=== PATIENT | female | born 1990 | race Hispanic/Latino ===

== ENCOUNTER 2017-10-03 12:29 | Emergency (ER) | payer BC, SELFPAY ==
[2017-10-03] MEDS ORDERED: NA CHLORIDE 0.9% 1,000 ML ONE (13:30)
[2017-10-03] MEDS ORDERED: MORPHINE 4 MG/ML SYR ONE (13:30)
[2017-10-03] MEDS ORDERED: ONDANSETRON 4 MG/2 ML VIAL ONE (13:30)
[2017-10-03 13:43] LABS: Absolute Monocytes 0.9 K/uL (0.1-1.3); Absolute Neutrophil 6.4 K/uL (1.8-8.0); Basophils % 1.2 % (0-1.3); Eosinophils % 3.1 % (0-4.4); Hematocrit 42.4 % (36.0-45.0); Lymphocytes % 28.3 % (15.3-44.8); MPV 8.1 fL (7.6-11.3); Monocytes % 8.3 % (3.3-12.3); RBC Red Blood Cell Count 4.92 M/uL (3.86-4.86)
[2017-10-03 13:54] LABS: Urine Blood NEGATIVE (NEG); Urine Glucose NEGATIVE (NEG); Urine Protein NEGATIVE (NEG); Urine Specific Gravity 1.025 (1.005-1.030); Urine pH 6.5 (5.0-7.0)
[2017-10-03 13:57] LABS: Urine Bacteria <20 /HPF (<20); Urine RBC <5 /HPF (NONE SEEN)
[2017-10-03 13:58] LABS: Urine Specific Gravity 1.025 (1.005-1.030)
[2017-10-03 13:58] LABS: Urine Culture Reflex Order NOT NEEDED; Urine Mucus 1+ /HPF (NONE SEEN)
[2017-10-03 14:00] LABS: ALT/SGPT 34 U/L (12-78); AST/SGOT 10 U/L (15-37); Albumin 3.8 g/dL (3.4-5.0); Alkaline Phosphatase 182 U/L (45-117); BUN Blood Urea Nitrogen 10 mg/dL (7-18); Bicarbonate 28 mmol/L (21-32); Bilirubin Direct < 0.1 mg/dL (0-0.2); Bilirubin Total 0.2 mg/dL (0.2-1.0); Glucose Level 88 mg/dL (74-106); Lipase 161 U/L (73-393); Potassium 3.9 mmol/L (3.5-5.1); Protein, Total 8.1 g/dL (6.4-8.2); Sodium Level 141 mmol/L (136-145)
--- NOTE | 2017-10-03 15:04 | RAD REPORT ---
EXAM DESCRIPTION: CT - Abdomen Pelvis W Contrast - 10/03/2017 2:19 pm CLINICAL HISTORY: Abdominal pain/nausea for 2 days COMPARISON: none. TECHNIQUE: Computed axial tomography of the abdomen pelvis was obtained. 100 cc Isovue-300 was admin istered intravenously. Oral contrast was not requested which limits evaluation of bowel. All CT scans are performed using dose optimization technique as appropriate and may include automated exposure control or mA/KV adjustment according to patient size. FINDINGS: The liver has a diminished attenuation consistent with fatty infiltration Spleen, pancreas, adrenal and kidneys appear unremarkable. There is no evidence of diverticulitis. The appendix is normal. The gallbladder has been removed. A tiny umbilical hernia is seen. An adnexal mass is not displayed IMPRESSION: No acute abnormality is displayed.
--- NOTE | 2017-10-03 15:38 | ER ---
Nurse's Notes [facility] Name: Anisha Navarro Age: 27 yrs Sex: Female : 1990 Arrival Date: 10/03/2017 Time: 12:32 Bed 20 Private MD: Diagnosis: Unspecified abdominal pain;Vomiting Presentation: 10/03 12:48 Presenting complaint: Patient states: olivia been nauseous for past couple days, dizzy and hj i woke with body ache and vomiting this AM; reports abd pain intermittent; denies diarrhea;. Transition of care: patient was not received from another setting of care. Onset of symptoms was October 03, 2017. Risk Assessment: Do you want to hurt yourself or someone else? Patient reports no desire to harm self or others. Initial Sepsis Screen: Does the patient meet any 2 criteria? No. Patient's initial sepsis screen is negative. Does the patient have a suspected source of infection? No. Patient's initial sepsis screen is negative. Care prior to arrival: None. 12:48 Method Of Arrival: Ambulatory 12:48 Acuity: NIKKI 3 hj Triage Assessment: 12:50 General: Appears in no apparent distress. uncomfortable, Behavior is calm, cooperative, hj appropriate for age. Pain: Complains of pain in abdomen. GI: Reports upper abdominal pain, constipation, nausea, vomiting. 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 - Social history:: Smoking status: Patient/guardian denies using tobacco, Patient/guardian denies using alcohol. - Ebola Screening: : Patient negative for fever greater than or equal to 101.5 degrees Fahrenheit, and additional compatible Ebola Virus Disease symptoms Patient denies exposure to infectious person Patient denies travel to an Ebola-affected area in the 21 days before illness onset. Screenin:51 Abuse screen: Denies threats or abuse. Denies injuries from another. Nutritional hj screening: No deficits noted. Tuberculosis screening: No symptoms or risk factors identified. Fall Risk None identified. Assessment: 12:51 GI: Abdomen is non-distended. hj 13:42 General: Appears uncomfortable, ill, obese, Behavior is calm, cooperative, appropriate mb3 for age. Pain: Complains of pain in abdomen. Neuro: Level of Consciousness is awake, alert, obeys commands, Oriented to person, place, time, situation, Appropriate for age. Cardiovascular: No deficits noted. Respiratory: No deficits noted. Airway is patent Respiratory effort is even, unlabored, Respiratory pattern is regular, symmetrical, Breath sounds are clear bilaterally. GI: Bowel sounds present X 4 quads. Abd is soft Abdomen is tender to palpation in right upper quadrant and left upper quadrant Reports nausea, vomiting. : No signs and/or symptoms were reported regarding the genitourinary system. Urine is cloudy. EENT: No signs and/or symptoms were reported regarding the EENT system. Derm: No signs and/or symptoms reported regarding the dermatologic system. Vital Signs: 12:51 BP 122 / 87; Pulse 95; Resp 18; Temp 98.6(O); Pulse Ox 97% on R/A; Weight 99.79 kg; hj Height 5 ft. 2 in. (157.48 cm); Pain 10/10; 15:54 BP 146 / 100; Pulse 89; Resp 16; Pulse Ox 97% on R/A; mb3 12:51 Body Mass Index 40.24 (99.79 kg, 157.48 cm) ED Course: 12:32 Patient arrived in ED. rg4 12:50 Triage completed. hj 12:51 Arm band placed on right wrist. hj 12:52 Patient has correct armband on for positive identification. Placed in gown. Bed in low hj position. Call light in reach. Side rails up X 1. 13:02 Issa Escobar, PETAR is PHCP. pm1 13:02 Zaid Lee MD is Attending Physician. pm1 13:22 Radiology exam delayed due to lab results not completed at this time. (BUN/Creatinine) vr test not completed at this time. 13:23 Reinier Ferreira, RN is Primary Nurse. mb3 13:35 Warm blanket given. Pulse ox on. NIBP on. mh5 13:35 Initial lab(s) drawn, by me, sent to lab. Urine collected: clean catch specimen, mh5 cloudy. Inserted saline lock: 22 gauge in left antecubital area, using aseptic technique. Blood collected. 13:36 Creatinine for Radiology Sent. [facility] 13:36 Basic Metabolic Panel Sent. [facility] 13:36 CBC with Diff Sent. [facility] 13:36 Hepatic Function Sent. [facility] 13:36 Lipase Sent. [facility] 14:00 Radiology exam delayed due to lab results not completed at this time. test vr not completed at this time. 14:[address] via wheelchair. vr 14:19 CT Abd/Pelvis - W/Contrast: IV contrast only In Process Unspecified. EDMS 14:20 CT completed. Patient tolerated procedure well. Patient moved back from CT. 15:54 No provider procedures requiring assistance completed. IV discontinued, intact, mb3 bleeding controlled, No redness/swelling at site. Pressure dressing applied. Administered Medications: 13:30 Drug: NS 0.9% 1000 ml Route: IV; Rate: 1000 ml; Site: left antecubital; mb3 15:53 Follow up: Response: No adverse reaction; IV Status: Completed infusion; IV Intake: mb3 1000ml 13:30 Drug: Zofran 4 mg Route: IVP; Site: left antecubital; mb3 15:53 Follow up: Response: No adverse reaction mb3 13:30 Drug: morphine 4 mg Route: IVP; Site: left antecubital; mb3 15:53 Follow up: Response: No adverse reaction mb3 Intake: 15:53 IV: 1000ml; Total: 1000ml. mb3 Outcome: 15:38 Discharge ordered by MD. pm1 15:53 Discharged to home ambulatory. mb3 15:53 Condition: stable 15:53 Discharge instructions given to patient, Instructed on discharge instructions, follow up and referral plans. medication usage, Demonstrated understanding of instructions, follow-up care, medications, Prescriptions given X 1. 15:54 Patient left the ED. mb3 Signatures: Dispatcher [employer] EDKS Dalia Eugene Shannon Isra Peter, Issa Shahid RN, NP NP pm1 Evette Ricardo 4 Chelsea Martinez 5 Reinier Ferreira RN RN mb3 Corrections: (The following items were deleted from the chart) 12:53 12:51 Pulse 95bpm; Resp 18bpm; Pulse Ox 97% RA; Temp 98.6F Oral; 99.79 kg; Height 5 ft. hj 2 in.; BMI: 40.2; Pain 01/02; hj 13:50 13:49 Patient moved to [place] via stretcher. fabián lockwood
--- NOTE | 2017-10-03 15:38 | EDPHYS ---
Physician Documentation [facility] Name: Anisha Navarro Age: 27 yrs Sex: Female : 1990 Arrival Date: 10/03/2017 Time: 12:32 Bed 20 Private MD: ED Physician Zaid Lee HPI: 10/03 14:00 This 27 yrs old Female presents to ER via Ambulatory with complaints of pm1 Nausea/Vomiting, Dizziness, BODY ACHES. 14:00 The patient presents to the emergency department with nausea, vomiting, abdominal pain. pm1 Onset: The symptoms/episode began/occurred 2 day(s) ago. Possible causes: sick contacts, by family, father, had GI bug for 48 hours. Vomiting and diarrhea. The symptoms are aggravated by nothing. The symptoms are alleviated by nothing. Associated signs and symptoms: Pertinent positives: abdominal pain, Pertinent negatives: dysuria, fever. Severity of symptoms: in the emergency department the symptoms are unchanged. The patient has not experienced similar symptoms in the past. The patient has not recently seen a physician. 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 - Social history:: Smoking status: Patient/guardian denies using tobacco, Patient/guardian denies using alcohol. - Ebola Screening: : Patient negative for fever greater than or equal to 101.5 degrees Fahrenheit, and additional compatible Ebola Virus Disease symptoms Patient denies exposure to infectious person Patient denies travel to an Ebola-affected area in the 21 days before illness onset. ROS: 14:00 Constitutional: Negative for fever, chills, and weight loss, Eyes: Negative for injury, pm1 pain, redness, and discharge, ENT: Negative for injury, pain, and discharge, Neck: Negative for injury, pain, and swelling, Cardiovascular: Negative for chest pain, palpitations, and edema, Respiratory: Negative for shortness of breath, cough, wheezing, and pleuritic chest pain. 14:00 Back: Negative for injury and pain, : Negative for injury, bleeding, discharge, and swelling, MS/Extremity: Negative for injury and deformity, Skin: Negative for injury, rash, and discoloration, Neuro: Negative for headache, weakness, numbness, tingling, and seizure. 14:00 Abdomen/GI: Positive for abdominal pain, nausea and vomiting, Negative for diarrhea. Exam: 14:00 Constitutional: This is a well developed, well nourished patient who is awake, alert, pm1 and in no acute distress. Head/Face: Normocephalic, atraumatic. Eyes: Pupils equal round and reactive to light, extra-ocular motions intact. Lids and lashes normal. Conjunctiva and sclera are non-icteric and not injected. Cornea within normal limits. Periorbital areas with no swelling, redness, or edema. ENT: Nares patent. No nasal discharge, no septal abnormalities noted. Tympanic membranes are normal and external auditory canals are clear. Oropharynx with no redness, swelling, or masses, exudates, or evidence of obstruction, uvula midline. Mucous membranes moist. Neck: Trachea midline, no thyromegaly or masses palpated, and no cervical lymphadenopathy. Supple, full range of motion without nuchal rigidity, or vertebral point tenderness. No Meningismus. Chest/axilla: Normal chest wall appearance and motion. Nontender with no deformity. No lesions are appreciated. Cardiovascular: Regular rate and rhythm with a normal S1 and S2. No gallops, murmurs, or rubs. Normal PMI, no JVD. No pulse deficits. Respiratory: Lungs have equal breath sounds bilaterally, clear to auscultation and percussion. No rales, rhonchi or wheezes noted. No increased work of breathing, no retractions or nasal flaring. 14:00 Back: No spinal tenderness. No costovertebral tenderness. Full range of motion. Skin: Warm, dry with normal turgor. Normal color with no rashes, no lesions, and no evidence of cellulitis. MS/ Extremity: Pulses equal, no cyanosis. Neurovascular intact. Full, normal range of motion. 14:00 Abdomen/GI: Inspection: abdomen appears normal, obese Bowel sounds: normal, Palpation: soft, mild abdominal tenderness, in the right upper quadrant and left upper quadrant, mass, is not appreciated, rebound tenderness, is not appreciated. 14:00 Neuro: Orientation: is normal, Sensation: is normal. Vital Signs: 12:51 BP 122 / 87; Pulse 95; Resp 18; Temp 98.6(O); Pulse Ox 97% on R/A; Weight 99.79 kg; hj Height 5 ft. 2 in. (157.48 cm); Pain 10/10; 15:54 BP 146 / 100; Pulse 89; Resp 16; Pulse Ox 97% on R/A; mb3 12:51 Body Mass Index 40.24 (99.79 kg, 157.48 cm) hj MDM: 13:02 Patient medically screened. pm1 15:37 Data reviewed: vital signs. Data interpreted: Pulse oximetry: on room air is 97 %. pm1 Interpretation: normal. Counseling: I had a detailed discussion with the patient and/or guardian regarding: the historical points, exam findings, and any diagnostic results supporting the discharge/admit diagnosis, lab results, radiology results, the need for outpatient follow up, to return to the emergency department if symptoms worsen or persist or if there are any questions or concerns that arise at home. 10/03 13:16 Order name: Urine Microscopic Only; Complete Time: 14:00 pm10/03 13:16 Order name: Creatinine for Radiology; Complete Time: 14:00 pm10/03 13:16 Order name: Basic Metabolic Panel; Complete Time: 14:01 pm10/03 13:16 Order name: CBC with Diff; Complete Time: 14:00 pm10/03 13:16 Order name: Hepatic Function; Complete Time: 14:01 pm1 10/03 13:16 Order name: Lipase; Complete Time: 14:01 pm10/03 13:16 Order name: Urine Test (obtain specimen); Complete Time: 13:41 pm1 10/03 13:16 Order name: IV Saline Lock; Complete Time: 13:36 pm1 10/03 13:16 Order name: CT Abd/Pelvis - W/Contrast: IV contrast only; Complete Time: 15:14 pm1 10/03 13:50 Order name: Urine Dipstick--Ancillary (enter results); Complete Time: 14:00 ss 10/03 13:55 Order name: Urine --Ancillary (enter results); Complete Time: 14:00 ag 10/03 13:16 Order name: Labs collected and sent; Complete Time: 13:36 pm1 10/03 13:16 Order name: Urine Dipstick-Ancillary (obtain specimen); Complete Time: 13:42 pm1 Administered Medications: 13:30 Drug: NS 0.9% 1000 ml Route: IV; Rate: 1000 ml; Site: left antecubital; mb3 15:53 Follow up: Response: No adverse reaction; IV Status: Completed infusion; IV Intake: mb3 1000ml 13:30 Drug: Zofran 4 mg Route: IVP; Site: left antecubital; mb3 15:53 Follow up: Response: No adverse reaction mb3 13:30 Drug: morphine 4 mg Route: IVP; Site: left antecubital; mb3 15:53 Follow up: Response: No adverse reaction mb3 Disposition: 17:37 Co-signature as Attending Physician, Zaid Lee MD. rn Disposition: 10/03/17 15:38 Discharged to Home. Impression: Unspecified abdominal pain, Vomiting. - Condition is Stable. - Discharge Instructions: Abdominal Pain, Adult, Nausea and Vomiting. - Prescriptions for Zofran 4 mg Oral Tablet - take 1 tablet by ORAL route every 12 hours As needed; 20 tablet. - Work release form, Medication Reconciliation Form, Thank You Letter form. - Follow up: Emergency Department; When: As needed; Reason: Worsening of condition. Follow up: Private Physician; When: 2 - 3 days; Reason: Recheck today's complaints, Continuance of care, Re-evaluation by your physician. - Problem is new. - Symptoms have improved. Signatures: Dispatcher [employer] EDZaid Genao MD MD rn Joaquin, Henry, RN RN hj Marinas, Patrick, NP PHYSICAL THERAPIST CLINIC DIRECTOR pm1 Reinier Ferreira RN RN mb3 Corrections: (The following items were deleted from the chart) 15:54 15:38 10/03/2017 15:38 Discharged to Home. Impression: Unspecified abdominal pain; mb3 Vomiting. Condition is Stable. Forms are Medication Reconciliation Form, Thank You Letter, Antibiotic Education, Prescription Opioid Use. Follow up: Emergency Department; When: As needed; Reason: Worsening of condition. Follow up: Private Physician; When: 2 - 3 days; Reason: Recheck today's complaints, Continuance of care, Re-evaluation by your physician. Problem is new. Symptoms have improved. pm1
== END 2017-10-03 15:54 | disposition home or self-care (01) ==
LOC: ER 12:29
DX: R11.2 Nausea with vomiting, unspecified (principal)
CPT/HCPCS: 36415; 74177; 80048; 80076; 81003; 81015; 81025; 83690; 85025; 96361; 96374; 96375; 99284; J2405; J7030; Q9967

== ENCOUNTER 2017-12-01 22:11 | Emergency (ER) | payer SELFPAY ==
[2017-12-01] MEDS ORDERED: DICYCLOMINE HCL 10 MG CAP ONE (23:15)
[2017-12-01] MEDS ORDERED: ONDANSETRON 4 MG/2 ML VIAL ONE (23:15)
[2017-12-01] MEDS ORDERED: FAMOTIDINE 20 MG/2 ML VIAL IV ONE (23:16)
[2017-12-01] MEDS ORDERED: NA CHLORIDE 0.9% 1,000 ML ONE (23:16)
[2017-12-01 23:31] LABS: Urine Blood NEGATIVE (NEG); Urine Glucose TRACE (NEG); Urine Protein 1+ (NEG); Urine Specific Gravity >1.030 (1.005-1.030); Urine pH 5.5 (5.0-7.0)
[2017-12-01 23:36] LABS: Absolute Lymphocytes (CBC) 2.6 K/uL (0.7-4.9); Absolute Monocytes 0.5 K/uL (0.1-1.3); Basophils % 0.8 % (0-1.3); Eosinophils % 1.1 % (0-4.4); Hematocrit 39.8 % (36.0-45.0); Lymphocytes % 22.9 % (15.3-44.8); MCH 30.4 pg (27.0-35.0); MCV 87.1 fL (80-100); MPV 8.1 fL (7.6-11.3); Monocytes % 4.5 % (3.3-12.3); RBC Red Blood Cell Count 4.57 M/uL (3.86-4.86)
[2017-12-01 23:38] LABS: Urine Bacteria <20 /HPF (<20); Urine RBC NONE SEEN /HPF (NONE SEEN)
[2017-12-01 23:39] LABS: Urine Culture Reflex Order NOT NEEDED
[2017-12-01 23:51] LABS: ALT/SGPT 44 U/L (12-78); AST/SGOT 13 U/L (15-37); Albumin 3.7 g/dL (3.4-5.0); Alkaline Phosphatase 154 U/L (45-117); Amylase Level 56 U/L (25-115); BUN Blood Urea Nitrogen 11 mg/dL (7-18); Bicarbonate 25 mmol/L (21-32); Bilirubin Direct < 0.1 mg/dL (0-0.2); Bilirubin Total 0.2 mg/dL (0.2-1.0); Glucose Level 155 mg/dL (74-106); Lipase 161 U/L (73-393); Potassium 3.7 mmol/L (3.5-5.1); Protein, Total 7.9 g/dL (6.4-8.2); Sodium Level 139 mmol/L (136-145)
--- NOTE | 2017-12-02 02:27 | EDPHYS ---
Physician Documentation [facility] Name: Anisha Navarro Age: 27 yrs Sex: Female : 1990 Arrival Date: 12/01/2017 Time: 22:12 Bed 18 Private MD: ED Physician Wily Zhang HPI: 12/01 22:45 This 27 yrs old Female presents to ER via Ambulatory with complaints of cp Abdominal Pain, Vomiting. 22:45 The patient presents with abdominal pain in the periumbilical area. in the right upper cp quadrant, right lower quadrant. Onset: The symptoms/episode began/occurred 3 day(s) ago. Associated signs and symptoms: Pertinent positives: nausea and vomiting, diarrhea, Pertinent negatives: blood in stools, constipation, dysuria, vomiting blood. 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 - Social history:: Smoking status: Patient/guardian denies using tobacco, but has a distant history of tobacco abuse. - Ebola Screening: : Patient negative for fever greater than or equal to 101.5 degrees Fahrenheit, and additional compatible Ebola Virus Disease symptoms Patient denies exposure to infectious person Patient denies travel to an Ebola-affected area in the 21 days before illness onset. ROS: 22:50 Constitutional: Negative for body aches, chills, fever, poor PO intake. cp 22:50 Eyes: Negative for injury, pain, redness, and discharge. cp 22:50 ENT: Negative for drainage from ear(s), ear pain, sore throat, difficulty swallowing, cp difficulty handling secretions. 22:50 Cardiovascular: Negative for chest pain. cp 22:50 Respiratory: Negative for cough, shortness of breath, wheezing. 22:50 Abdomen/GI: Positive for abdominal pain, nausea and vomiting, diarrhea, Negative for constipation, black/tarry stool, rectal bleeding. 22:50 Back: Negative for radiated pain. 22:50 : Negative for urinary symptoms, flank pain. 22:50 Skin: Negative for cellulitis, rash. 22:50 Neuro: Negative for altered mental status, headache, weakness. 22:50 All other systems are negative. Exam: 22:52 Constitutional: The patient appears in no acute distress, alert, awake, non-toxic, well cp developed, well nourished. 22:52 Head/Face: Normocephalic, atraumatic. cp 22:52 Eyes: Periorbital structures: appear normal, Conjunctiva: normal, no exudate, no injection, Sclera: no appreciated abnormality, Lids and lashes: appear normal, bilaterally. 22:52 ENT: External ear(s): are unremarkable, Nose: is normal, Mouth: Lips: moist, Oral mucosa: pink and intact, moist, Posterior pharynx: is normal, airway is patent, no erythema, no exudate. 22:52 Chest/axilla: Inspection: normal, Palpation: is normal, no crepitus, no tenderness. 22:52 Cardiovascular: Rate: tachycardic, Rhythm: regular. 22:52 Respiratory: the patient does not display signs of respiratory distress, Respirations: normal, no use of accessory muscles, no retractions, no splinting, no tachypnea, labored breathing, is not present, Breath sounds: are clear throughout, no decreased breath sounds, no stridor, no wheezing. 22:52 Abdomen/GI: Inspection: abdomen appears normal, Bowel sounds: active, all quadrants, Palpation: soft, in all quadrants, moderate abdominal tenderness, in the umbilical area, right upper quadrant and right lower quadrant, rebound tenderness, is not appreciated, involuntary guarding, is not appreciated. 22:52 Back: CVA tenderness, is absent. 22:52 Skin: cellulitis, is not appreciated, no rash present. Vital Signs: 22:23 BP 148 / 102; Pulse 109; Resp 19; Temp 99.4(O); Pulse Ox 100% ; Weight 99.79 kg (R); ao Height 5 ft. 2 in. (157.48 cm) (R); Pain 7/10; 23:30 BP 135 / 93; Pulse 98; Resp 16; Pulse Ox 99% ; ao 0909 00:56 BP 136 / 85; Pulse 94; Resp 14; Pulse Ox 98% on R/A; ao 01:55 BP 132 / 84; Pulse 92; Resp 16; Pulse Ox 100% on R/A; ao 02:54 BP 136 / 90; Pulse 90; Resp 16; Pulse Ox 99% on R/A; ao 12/01 22:23 Body Mass Index 40.24 (99.79 kg, 157.48 cm) ao MDM: 12/01 22:47 Patient medically screened. 12/02 02:35 Data reviewed: vital signs, nurses notes, lab test result(s), radiologic studies, CT cp scan, and as a result, I will discharge patient. 02:35 Counseling: I had a detailed discussion with the patient and/or guardian regarding: the cp historical points, exam findings, and any diagnostic results supporting the discharge/admit diagnosis, lab results, radiology results, to return to the emergency department if symptoms worsen or persist or if there are any questions or concerns that arise at home. Response to treatment: the patient's symptoms have markedly improved after treatment. 12/01 22:39 Order name: Urine Dipstick--Ancillary (enter results); Complete Time: 00:36 [facility] 12/01 22:39 Order name: Urine --Ancillary (enter results); Complete Time: 00:36 [facility] 12/01 22:51 Order name: Amylase, Serum; Complete Time: 00:36 12/01 22:51 Order name: Basic Metabolic Panel; Complete Time: 00:36 12/02 00:37 Interpretation: Normal except: CL 108; GLUC 155; GFR 87. 12/01 22:51 Order name: CBC with Diff; Complete Time: 00:36 12/02 00:37 Interpretation: Normal except: WBC 11.3. 12/01 22:51 Order name: Creatinine for Radiology; Complete Time: 00:36 12/01 22:51 Order name: Hepatic Function; Complete Time: 00:36 12/02 00:36 Interpretation: Normal except: AST 13; ALK 154; GLOB 4.2; A/G 0.9. 12/01 22:51 Order name: Lipase; Complete Time: 00:36 12/01 22:51 Order name: Urine Microscopic Only; Complete Time: 00:36 12/01 22:51 Order name: CT Abd/Pelvis - W/Contrast 12/01 22:51 Order name: Urine Test (obtain specimen); Complete Time: 23:21 12/01 22:51 Order name: IV Saline Lock; Complete Time: 23:24 12/01 22:51 Order name: Labs collected and sent; Complete Time: 23:25 cp 12/01 22:51 Order name: Urine Dipstick-Ancillary (obtain specimen); Complete Time: 23:25 cp 12/02 02:19 Order name: PO challenge; Complete Time: 02:29 cp Administered Medications: 12/01 23:21 Drug: NS 0.9% 1000 ml Route: IV; Rate: 1 bolus; Site: left antecubital; ao 12/02 00:30 Follow up: IV Status: Completed infusion; IV Intake: 1000ml ao 12/01 23:23 Drug: Zofran 4 mg Route: IVP; Site: left antecubital; ao 23:26 Follow up: Response: No adverse reaction ao 12/02 02:26 Follow up: Response: No adverse reaction ao 12/01 23:24 Drug: Pepcid 20 mg Route: IVP; Site: left antecubital; ao 12/02 02:27 Follow up: Response: No adverse reaction; Pain is decreased ao 12/01 23:24 Drug: Bentyl 20 mg Route: PO; ao 12/02 02:27 Follow up: Response: No adverse reaction ao 02:54 Drug: Phenergan 25 mg Route: IVP; Site: left antecubital; ao 03:40 Follow up: Response: No adverse reaction ao 02:54 Drug: NS 0.9% 1000 ml Route: IV; Rate: 1 bolus; Site: left antecubital; ao 03:40 Follow up: IV Status: Completed infusion; IV Intake: 1000ml ao Disposition: 12/02/17 02:26 Discharged to Home. Impression: Nausea and vomiting, Unspecified abdominal pain. - Condition is Stable. - Discharge Instructions: Abdominal Pain, Adult, Nausea and Vomiting, Adult. - Prescriptions for Bentyl 20 mg Oral Tablet - take 1 tablet by ORAL route every 6 hours As needed; 30 tablet. Zofran 4 mg Oral Tablet - take 1 tablet by ORAL route every 12 hours As needed; 20 tablet. - Medication Reconciliation Form, Thank You Letter, Antibiotic Education, Prescription Opioid Use form. - Follow up: Emergency Department; When: As needed; Reason: Worsening of condition. - Problem is new. - Symptoms have improved. Addendum: 12/08/2017 12:07 Co-signature as Attending Physician, Wily Zhang MD Available for consultation at p s1 all times. . Signatures: Dispatcher [employer] EDMS Wilbert Wei PA PA cp Ortiz, Alex, RN RN Wily Baldwin MD MD ps1 Corrections: (The following items were deleted from the chart) 12/02 03:44 02:26 12/02/2017 02:26 Discharged to Home. Impression: Nausea and vomiting; Unspecified ao abdominal pain. Condition is Stable. Forms are Medication Reconciliation Form, Thank You Letter, Antibiotic Education, Prescription Opioid Use. Follow up: Emergency Department; When: As needed; Reason: Worsening of condition. Problem is new. Symptoms have improved. cp
--- NOTE | 2017-12-02 02:27 | ER ---
Nurse's Notes [facility] Name: Anisha Navarro Age: 27 yrs Sex: Female : 1990 Arrival Date: 12/01/2017 Time: 22:12 Bed 18 Private MD: Diagnosis: Nausea and vomiting;Unspecified abdominal pain Presentation: 12/01 22:19 Presenting complaint: Patient states: Abdominal pain for the past three days and today ao patient started to projectile vomiting as reported by patient. Patient is negative for fever and just complains of nausea. Transition of care: patient was not received from another setting of care. Onset of symptoms is unknown. Risk Assessment: Do you want to hurt yourself or someone else? Patient reports no desire to harm self or others. Initial Sepsis Screen: Does the patient meet any 2 criteria? No. Patient's initial sepsis screen is negative. Initial Sepsis Screen: Does the patient meet any 2 criteria? HR > 90 bpm. Does the patient have a suspected source of infection? No. Patient's initial sepsis screen is negative. Care prior to arrival: None. 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 - Social history:: Smoking status: Patient/guardian denies using tobacco, but has a distant history of tobacco abuse. - Ebola Screening: : Patient negative for fever greater than or equal to 101.5 degrees Fahrenheit, and additional compatible Ebola Virus Disease symptoms Patient denies exposure to infectious person Patient denies travel to an Ebola-affected area in the 21 days before illness onset. Screenin:29 Abuse screen: Denies threats or abuse. Denies injuries from another. Nutritional ao screening: No deficits noted. Tuberculosis screening: No symptoms or risk factors identified. Fall Risk None identified. Assessment: 22:26 General: Appears in no apparent distress. comfortable, Behavior is calm, cooperative, ao appropriate for age. Pain: Complains of pain in abdomen Pain currently is 8 out of 10 on a pain scale. Quality of pain is described as pressure. Neuro: Level of Consciousness is awake, alert, obeys commands, Oriented to person, place, time, situation, Appropriate for age Moves all extremities. Full function Speech is normal, Facial symmetry appears normal. Cardiovascular: Capillary refill < 3 seconds Patient's skin is warm and dry. Respiratory: Airway is patent Respiratory effort is even, unlabored, Respiratory pattern is regular, symmetrical. GI: Abdomen is obese, Bowel sounds present X 4 quads. Abd is soft and non tender. : No signs and/or symptoms were reported regarding the genitourinary system. EENT: No signs and/or symptoms were reported regarding the EENT system. Derm: Skin is intact, Skin is pink, warm \T\ dry. normal, Skin temperature is warm. Musculoskeletal: Circulation, motion, and sensation intact. Range of motion: intact in all extremities. 23:30 Reassessment: Patient appears in no apparent distress at this time. Patient and/or ao family updated on plan of care and expected duration. Pain level reassessed. Patient is alert, oriented x 3, equal unlabored respirations, skin warm/dry/pink. Patient still drinking contrast and then wait to get scan. 23:50 Reassessment: Patient is done with contrast. CT notified. ao 12/02 00:56 Reassessment: Patient appears in no apparent distress at this time. Patient and/or ao family updated on plan of care and expected duration. Pain level reassessed. Patient is alert, oriented x 3, equal unlabored respirations, skin warm/dry/pink. Waiting On CT Scan. 01:55 Reassessment: Patient appears in no apparent distress at this time. Patient and/or ao family updated on plan of care and expected duration. Pain level reassessed. Patient is alert, oriented x 3, equal unlabored respirations, skin warm/dry/pink. Waiting on CT report. 02:54 Reassessment: Patient was provided with an orange juice and was not able to hold PO ao challenge. Toney Wei was notified and order Phenergan an NS. DC is hold until patient gets fluids. Vital Signs: 12/01 22:23 BP 148 / 102; Pulse 109; Resp 19; Temp 99.4(O); Pulse Ox 100% ; Weight 99.79 kg (R); ao Height 5 ft. 2 in. (157.48 cm) (R); Pain 7/10; 23:30 BP 135 / 93; Pulse 98; Resp 16; Pulse Ox 99% ; ao 12/02 00:56 BP 136 / 85; Pulse 94; Resp 14; Pulse Ox 98% on R/A; ao 01:55 BP 132 / 84; Pulse 92; Resp 16; Pulse Ox 100% on R/A; ao 02:54 BP 136 / 90; Pulse 90; Resp 16; Pulse Ox 99% on R/A; ao 12/01 22:23 Body Mass Index 40.24 (99.79 kg, 157.48 cm) ao ED Course: 12/01 22:12 Patient arrived in ED. es 22:14 Ramsey Montero, RN is Primary Nurse. ao 22:23 Triage completed. ao 22:24 Arm band placed on right wrist. Patient placed in an exam room, Patient notified of ao wait time. 22:29 Patient has correct armband on for positive identification. Pulse ox on. NIBP on. ao 22:43 Wilbert Wei PA is PHCP. cp 22:43 Wily Zhang MD is Attending Physician. cp 23:20 Inserted saline lock: 20 gauge in left antecubital area, using aseptic technique. Blood oe collected. 23:51 Radiology exam delayed due to Patient nauseous. Has been given medication so she can kw1 tolerate oral contrast. 12/02 01:[address] via wheelchair. kw1 01:34 CT Abd/Pelvis - W/Contrast In Process Unspecified. EDMS 01:37 CT completed. Patient tolerated procedure well. Patient moved back from CT. kw1 03:44 No provider procedures requiring assistance completed. IV discontinued, intact, ao bleeding controlled, No redness/swelling at site. Pressure dressing applied. Administered Medications: 12/01 23:21 Drug: NS 0.9% 1000 ml Route: IV; Rate: 1 bolus; Site: left antecubital; ao 12/02 00:30 Follow up: IV Status: Completed infusion; IV Intake: 1000ml ao 12/01 23:23 Drug: Zofran 4 mg Route: IVP; Site: left antecubital; ao 23:26 Follow up: Response: No adverse reaction ao 12/02 02:26 Follow up: Response: No adverse reaction ao 12/01 23:24 Drug: Pepcid 20 mg Route: IVP; Site: left antecubital; ao 12/02 02:27 Follow up: Response: No adverse reaction; Pain is decreased ao 12/01 23:24 Drug: Bentyl 20 mg Route: PO; ao 12/02 02:27 Follow up: Response: No adverse reaction ao 02:54 Drug: Phenergan 25 mg Route: IVP; Site: left antecubital; ao 03:40 Follow up: Response: No adverse reaction ao 02:54 Drug: NS 0.9% 1000 ml Route: IV; Rate: 1 bolus; Site: left antecubital; ao 03:40 Follow up: IV Status: Completed infusion; IV Intake: 1000ml ao Intake: 00:30 IV: 1000ml; Total: 1000ml. ao 03:40 IV: 1000ml; Total: 2000ml. ao Outcome: 02:26 Discharge ordered by MD. cp 03:44 Discharged to home ambulatory. ao 03:44 Condition: stable 03:44 Discharge instructions given to patient, Instructed on discharge instructions, follow up and referral plans. Demonstrated understanding of instructions, follow-up care, medications, Prescriptions given X 2. 03:44 Patient left the ED. ao Signatures: Dispatcher [employer] EDKassy Hargrove Corey, PA PA cp Ortiz, Alex, RN RN ao Javy Galan Kimberly kw1 Corrections: (The following items were deleted from the chart) 12/01 22:26 22:23 BP 160 / 120; Pulse 109bpm; Resp 19bpm; Pulse Ox 100%; Temp 99.4F Oral; 99.79 kg ao Reported; Height 5 ft. 2 in. Reported; BMI: 40.2; Pain 7/10; ao 12/02 01:09 00:56 BP 105 / 76; Pulse 89bpm; Resp 14bpm; Pulse Ox 98% RA; ao ao
[2017-12-02] MEDS ORDERED: PROMETHAZINE 25 MG/ML VIAL ONE (02:51)
[2017-12-02] MEDS ORDERED: NA CHLORIDE 0.9% 1,000 ML ONE (02:55)
--- NOTE | 2017-12-02 09:12 | RAD REPORT ---
EXAM DESCRIPTION: CT - Abdomen Pelvis W Contrast - 12/02/2017 3:08 am CLINICAL HISTORY: Abdominal pain, vomiting, history of kidney stones, prior cholecystectomy. A preliminary report was provided at the time of the study and reviewed prior to final report. COMPARISON: CT study October 03, 2017 TECHNIQUE: Biphasic, helical CT imaging of the abdomen and pelvis was performed following 100 ml non -ionic IV contrast. Oral contrast was given. All CT scans are performed using dose optimization technique as appropriate and may include automated exposure control or mA/KV adjustment according to patient size. FINDINGS: No suspicious findings in the lung bases. Liver is normal in size. Patient has a very pronounced fatty infiltration pattern. There is sparing i n the caudate lobe. Spleen and pancreas show no suspicious findings. Cholecystectomy clips are presen t. No biliary tree dilatation. Symmetric renal function is seen with no hydronephrosis or suspicious renal mass. No pyelonephritis o r acute renal parenchymal process. Urinary bladder is normal. Uterus and ovaries are normal for age a s well. No acute bowel finding identifiable. There is a slightly bulbous appearance to the tip of the appendi x. This matches the prior study and there is no periappendiceal inflammatory stranding. Patient as a minimal mesenteric lymph node pattern. This also matches the prior study. No free air, free fluid or inflammatory stranding. No hernia, mass or bulky lymphadenopathy. No adre nal abnormality. No suspicious bony findings. IMPRESSION: Contrast enhanced CT abdomen and pelvis showing no acute finding. Prominent diffuse fatty infiltration pattern of the liver. No significant change from the September 2017 study.
== END 2017-12-02 03:44 | disposition home or self-care (01) ==
LOC: ER 22:11
DX: R11.2 Nausea with vomiting, unspecified (principal); R10.9 Unspecified abdominal pain; Z87.891 Personal history of nicotine dependence
CPT/HCPCS: 36415; 74177; 80048; 80076; 81003; 81015; 81025; 82150; 83690; 85025; 96361; 96374; 96375; 99284; J2405; J2550; J7030; Q9967

== ENCOUNTER 2017-12-06 21:12 | Emergency (ER) | payer SELFPAY ==
[2017-12-06] MEDS ORDERED: ONDANSETRON 4 MG/2 ML VIAL ONE (22:25)
[2017-12-06] MEDS ORDERED: NA CHLORIDE 0.9% 1,000 ML ONE (22:25)
[2017-12-06 22:27] LABS: Urine Blood TRACE (NEG); Urine Glucose NEGATIVE (NEG); Urine Protein 1+ (NEG); Urine Specific Gravity >1.030 (1.005-1.030)
[2017-12-06 22:29] LABS: Absolute Lymphocytes (CBC) 2.2 K/uL (0.7-4.9); Absolute Monocytes 0.5 K/uL (0.1-1.3); Absolute Neutrophil 6.6 K/uL (1.8-8.0); Basophils % 0.9 % (0-1.3); Eosinophils % 2.1 % (0-4.4); Hematocrit 40.7 % (36.0-45.0); Lymphocytes % 23.2 % (15.3-44.8); MCH 30.7 pg (27.0-35.0); MCV 86.6 fL (80-100); MPV 8.1 fL (7.6-11.3); Monocytes % 5.1 % (3.3-12.3)
[2017-12-06 22:44] LABS: ALT/SGPT 48 U/L (12-78); AST/SGOT 17 U/L (15-37); Albumin 3.7 g/dL (3.4-5.0); Alkaline Phosphatase 128 U/L (45-117); BUN Blood Urea Nitrogen 10 mg/dL (7-18); Bicarbonate 27 mmol/L (21-32); Bilirubin Direct < 0.1 mg/dL (0-0.2); Bilirubin Total 0.2 mg/dL (0.2-1.0); Glucose Level 143 mg/dL (74-106); Lipase 149 U/L (73-393); Potassium 3.8 mmol/L (3.5-5.1); Protein, Total 7.6 g/dL (6.4-8.2); Sodium Level 140 mmol/L (136-145)
--- NOTE | 2017-12-06 23:17 | ER ---
Nurse's Notes [facility] Name: Anisha Navarro Age: 27 yrs Sex: Female : 1990 Arrival Date: 12/06/2017 Time: 21:15 Bed 8 Private MD: Diagnosis: Diarrhea, unspecified;Nausea and vomiting Presentation: 12/06 21:34 Presenting complaint: Patient states: Seen here in ER on Sunday and diagnosed with lp1 stomach virus, told to return if symptoms did not improve; States continued N/V, diarrhea, and chills; States she cannot tolerate water; Pain to RUQ of abdomen. Transition of care: patient was not received from another setting of care. Onset of symptoms was December 06, 2017. Risk Assessment: Do you want to hurt yourself or someone else? Patient reports no desire to harm self or others. Initial Sepsis Screen: Does the patient meet any 2 criteria? No. Patient's initial sepsis screen is negative. Does the patient have a suspected source of infection? No. Patient's initial sepsis screen is negative. Care prior to arrival: None. 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 - Social history:: Smoking status: Patient/guardian denies using tobacco. - Ebola Screening: : No symptoms or risks identified at this time. Screenin:41 Abuse screen: Denies threats or abuse. Denies injuries from another. Nutritional lp1 screening: No deficits noted. Tuberculosis screening: No symptoms or risk factors identified. Fall Risk None identified. Assessment: 21:43 General: Appears in no apparent distress. Behavior is calm, cooperative, appropriate lp1 for age. Pain: Complains of pain in right upper quadrant Pain currently is 6 out of 10 on a pain scale. Neuro: Level of Consciousness is awake, alert, obeys commands. Cardiovascular: Patient's skin is warm and dry. Respiratory: Respiratory effort is even, unlabored. GI: Abdomen is non-distended, Bowel sounds present X 4 quads. Reports diarrhea, nausea, vomiting. : Denies burning with urination. EENT: No signs and/or symptoms were reported regarding the EENT system. Derm: Skin is pink, warm \T\ dry. Musculoskeletal: Circulation, motion, and sensation intact. 22:30 Reassessment: ALL CURRENT ORDERS COMPLETED, RESULTS PENDING. bp 23:35 Reassessment: Patient appears in no apparent distress at this time. Patient is alert, lp1 oriented x 3, equal unlabored respirations, skin warm/dry/pink. Patient states symptoms have improved. Vital Signs: 21:38 BP 149 / 99; Pulse 99; Resp 16; Temp 98.6(O); Pulse Ox 98% on R/A; Weight 99.79 kg; lp1 Height 5 ft. 2 in. (157.48 cm); Pain 6/10; 22:30 BP 133 / 84; Pulse 94; Resp 14; Pulse Ox 98% ; bp 23:30 BP 150 / 92; Pulse 90; Resp 18; Pulse Ox 98% on R/A; lp1 21:38 Body Mass Index 40.24 (99.79 kg, 157.48 cm) lp1 ED Course: 21:15 Patient arrived in ED. es 21:25 Gordy Moreno, RN is Primary Nurse. bp 21:26 West Alexandre MD is Attending Physician. kdr 21:26 Lopez [facility] jr8 21:38 Triage completed. lp1 21:38 Arm band placed on left wrist. lp1 21:41 Patient has correct armband on for positive identification. lp1 22:10 Inserted saline lock: 20 gauge in right antecubital area, using aseptic technique. cc3 Blood collected. 22:21 Urine collected: clean catch specimen, cloudy. lp1 23:17 Jose Wood MD is Referral Physician. jr8 23:35 No provider procedures requiring assistance completed. IV discontinued, No lp1 redness/swelling at site. Pressure dressing applied. Administered Medications: 22:20 Drug: NS 0.9% 1000 ml Route: IV; Rate: 1000 ml; Site: right antecubital; bp 23:34 Follow up: IV Status: Completed infusion; IV Intake: 1000ml lp1 22:23 Drug: Zofran 4 mg Route: IVP; Site: right antecubital; bp 23:02 Follow up: Response: Nausea is decreased bp Intake: 23:34 IV: 1000ml; Total: 1000ml. lp1 Outcome: 23:17 Discharge ordered by . marley 23:37 Discharged to home ambulatory. lp1 23:37 Condition: good 23:37 Discharge instructions given to patient, Instructed on discharge instructions, follow up and referral plans. medication usage, Demonstrated understanding of instructions, follow-up care, medications, Prescriptions given X 4. 23:38 Patient left the ED. lp1 Signatures: West Alexandre MD MD kdr Salyer, Edna es Pena, Laura RN RN lp1 Lopez James PA PA jr8 Peltier, Brian, RN RN bp Colleen Antonio cc3 Corrections: (The following items were deleted from the chart) 21:38 21:34 Presenting complaint: Patient states: Seen here in ER on Sunday and diagnosed lp1 with stomach virus, told to return if symptoms did not improve; States continued N/V, diarrhea, and chills; States she cannot tolerate water lp1 21:41 21:39 Social history: Smoking status: lp1 lp1
--- NOTE | 2017-12-06 23:18 | EDPHYS ---
Physician Documentation [facility] Name: Anisha Navarro Age: 27 yrs Sex: Female : 1990 Arrival Date: 12/06/2017 Time: 21:15 Bed 8 Private MD: ED Physician West Alexandre HPI: 12/06 22:07 This 27 yrs old Female presents to ER via Ambulatory with complaints of jr8 Vomiting, Diarrhea, Chills. 22:07 The patient presents to the emergency department with nausea, vomiting, diarrhea, jr8 abdominal pain, of the right upper quadrant and right lower quadrant. Onset: The symptoms/episode began/occurred gradually, 1 week(s) ago. Possible causes: unknown. The symptoms are aggravated by food , The symptoms are alleviated by nothing. Associated signs and symptoms: The patient has no apparent associated signs or symptoms. Severity of symptoms: At their worst the symptoms were moderate in the emergency department the symptoms are unchanged. The patient has not experienced similar symptoms in the past. The patient has been recently seen by a physician:. Patient recently seen and worked up in ED for n/v/d and abdominal pain. Had labs and CT with no acute findings. Sent home on nausea medicine which she has been using but without relief. Came back to ED today for continuation of symptoms . 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 - Social history:: Smoking status: Patient/guardian denies using tobacco. - Ebola Screening: : No symptoms or risks identified at this time. ROS: 22:07 Eyes: Negative for injury, pain, redness, and discharge, ENT: Negative for injury, jr8 pain, and discharge, Neck: Negative for injury, pain, and swelling, Cardiovascular: Negative for chest pain, palpitations, and edema, Respiratory: Negative for shortness of breath, cough, wheezing, and pleuritic chest pain, Back: Negative for injury and pain, MS/Extremity: Negative for injury and deformity, Skin: Negative for injury, rash, and discoloration, Neuro: Negative for headache, weakness, numbness, tingling, and seizure. 22:07 Abdomen/GI: Positive for abdominal pain, nausea, vomiting, and diarrhea, Negative for abdominal distension, anorexia, dysphagia, hematemesis, black/tarry stool, rectal pain, rectal bleeding, bowel incontinence, flatulence. Exam: 22:07 Eyes: Pupils equal round and reactive to light, extra-ocular motions intact. Lids and jr8 lashes normal. Conjunctiva and sclera are non-icteric and not injected. Cornea within normal limits. Periorbital areas with no swelling, redness, or edema. ENT: Nares patent. No nasal discharge, no septal abnormalities noted. Tympanic membranes are normal and external auditory canals are clear. Oropharynx with no redness, swelling, or masses, exudates, or evidence of obstruction, uvula midline. Mucous membranes moist. Neck: Trachea midline, no thyromegaly or masses palpated, and no cervical lymphadenopathy. Supple, full range of motion without nuchal rigidity, or vertebral point tenderness. No Meningismus. Cardiovascular: Regular rate and rhythm with a normal S1 and S2. No gallops, murmurs, or rubs. Normal PMI, no JVD. No pulse deficits. Respiratory: Lungs have equal breath sounds bilaterally, clear to auscultation and percussion. No rales, rhonchi or wheezes noted. No increased work of breathing, no retractions or nasal flaring. Back: No spinal tenderness. No costovertebral tenderness. Full range of motion. Skin: Warm, dry with normal turgor. Normal color with no rashes, no lesions, and no evidence of cellulitis. MS/ Extremity: Pulses equal, no cyanosis. Neurovascular intact. Full, normal range of motion. Neuro: Awake and alert, GCS 15, oriented to person, place, time, and situation. Cranial nerves II-XII grossly intact. Motor strength 5/5 in all extremities. Sensory grossly intact. Cerebellar exam normal. Normal gait. 22:07 Abdomen/GI: Inspection: obese Bowel sounds: normal, in all quadrants, Palpation: soft, moderate abdominal tenderness, no appreciated organomegaly, Indicators: Liver: no appreciated palpable abnormalities. Vital Signs: 21:38 BP 149 / 99; Pulse 99; Resp 16; Temp 98.6(O); Pulse Ox 98% on R/A; Weight 99.79 kg; lp1 Height 5 ft. 2 in. (157.48 cm); Pain 6/10; 22:30 BP 133 / 84; Pulse 94; Resp 14; Pulse Ox 98% ; bp 23:30 BP 150 / 92; Pulse 90; Resp 18; Pulse Ox 98% on R/A; lp1 21:38 Body Mass Index 40.24 (99.79 kg, 157.48 cm) lp1 MDM: 21:26 Patient medically screened. jr8 23:15 Data reviewed: vital signs, nurses notes, old medical records, lab test result(s). Data jr8 interpreted: Pulse oximetry: on room air is 98 %. Interpretation: normal. 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 Response to treatment: the patient's symptoms have markedly improved after treatment, patient is well hydrated. ED course: Discussed with patient that she has had two CT scans over the past couple of months. Has had labs three different times for complaint. No acute findings noted on any of it. Recommend that she see GI at this point. Will try a trial of antibiotics to see if it will help. Patient is good with this and will follow up. 12/06 22:01 Order name: Basic Metabolic Panel; Complete Time: 22:45 12/06 22:01 Order name: CBC with Diff; Complete Time: 22:44 12/06 22:01 Order name: Creatinine for Radiology; Complete Time: 22:44 12/06 22:01 Order name: Hepatic Function; Complete Time: 22:45 [facility] 12/06 22:01 Order name: Lipase; Complete Time: 22:45 [facility] 12/06 22:21 Order name: Urine Microscopic Only lp1 12/06 22:01 Order name: Urine Test (obtain specimen); Complete Time: 22:21 8 12/06 22:01 Order name: IV Saline Lock; Complete Time: 22:27 8 12/06 22:01 Order name: Labs collected and sent; Complete Time: 22:27 [facility] 12/06 22:01 Order name: Urine Dipstick-Ancillary (obtain specimen); Complete Time: 22:21 8 12/06 22:25 Order name: Urine Dipstick--Ancillary (enter results); Complete Time: 22:29 2 12/06 22:25 Order name: Urine --Ancillary (enter results); Complete Time: 22:29 mw2 Administered Medications: 22:20 Drug: NS 0.9% 1000 ml Route: IV; Rate: 1000 ml; Site: right antecubital; bp 23:34 Follow up: IV Status: Completed infusion; IV Intake: 1000ml lp1 22:23 Drug: Zofran 4 mg Route: IVP; Site: right antecubital; bp 23:02 Follow up: Response: Nausea is decreased bp Disposition: 12/07 00:13 Co-signature as Attending Physician, West Alexandre MD I agree with the assessment and kdr plan of care. Disposition: 12/06/17 23:17 Discharged to Home. Impression: Diarrhea, unspecified, Nausea and vomiting. - Condition is Stable. - Discharge Instructions: Diarrhea, Adult, Irritable Bowel Syndrome, Adult, Nausea and Vomiting, Adult. - Prescriptions for Bentyl 20 mg Oral Tablet - take 1 tablet by ORAL route every 6 hours As needed; 20 tablet. Cipro 500 mg Oral Tablet - take 1 tablet by ORAL route every 12 hours for 10 days; 20 tablet. Flagyl 500 mg Oral Tablet - take 1 tablet by ORAL route every 6 hours for 10 days; 40 tablet. Zofran 4 mg Oral Tablet - take 1 tablet by ORAL route every 12 hours As needed; 20 tablet. - Medication Reconciliation Form, Thank You Letter, Antibiotic Education, Prescription Opioid Use, Work release form form. - Follow up: Jose Wood MD; When: 2 - 3 days; Reason: Recheck today's complaints, Continuance of care, Re-evaluation by your physician. - Problem is new. - Symptoms have improved. Signatures: Dispatcher [employer] EDMS West Alexandre MD MD kdr Pena, Laura, RN RN lp1 Lopez James PA PA jr8 Gordy Moreno RN RN bp Corrections: (The following items were deleted from the chart) 12/06 21:41 21:39 Social history: Smoking status: lp1 lp1 23:38 23:17 12/06/2017 23:17 Discharged to Home. Impression: Diarrhea, unspecified; Nausea lp1 and vomiting. Condition is Stable. Forms are Medication Reconciliation Form, Thank You Letter, Antibiotic Education, Prescription Opioid Use. Follow up: Jose Wood; When: 2 - 3 days; Reason: Recheck today's complaints, Continuance of care, Re-evaluation by your physician. Problem is new. Symptoms have improved. jr8
[2017-12-07 00:43] LABS: Urine Bacteria >50 /HPF (<20)
[2017-12-07 00:44] LABS: Urine Culture Reflex Order REFLEXED
== END 2017-12-06 23:38 | disposition home or self-care (01) ==
LOC: ER 21:12
DX: R19.7 Diarrhea, unspecified (principal)
CPT/HCPCS: 36415; 80048; 80076; 81003; 81015; 81025; 83690; 85025; 87086; 87088; 96361; 96374; 99284; J2405; J7030

== ENCOUNTER 2018-02-12 17:15 | Emergency (ER) | payer SELFPAY ==
[2018-02-12] MEDS ORDERED: FLUORESCEIN SODIUM 0.6 MG/WRAP ONE (17:42)
[2018-02-12] MEDS ORDERED: EYE WASH SOLNT 118 ML BTL ONE (17:42)
[2018-02-12] MEDS ORDERED: TETRACAINE HCL 0.5% 2ML OPTH ONE (17:42)
--- NOTE | 2018-02-12 19:27 | ER ---
Nurse's Notes [facility] Name: Anisha Navarro Age: 27 yrs Sex: Female : 1990 Arrival Date: 02/12/2018 Time: 17:18 Bed 30 Private MD: VIKKI GRANT Diagnosis: Ocular pain, left eye Presentation: 02/12 17:24 Presenting complaint: Patient states: My left eye is burning and painful, reports jl7 photophobia since last night. Transition of care: patient was not received from another setting of care. Onset of symptoms was February 11, 2018. Risk Assessment: Do you want to hurt yourself or someone else? Patient reports no desire to harm self or others. Initial Sepsis Screen: Does the patient meet any 2 criteria? No. Patient's initial sepsis screen is negative. Does the patient have a suspected source of infection? No. Patient's initial sepsis screen is negative. Care prior to arrival: None. 17:24 Method Of Arrival: Ambulatory 7 17:24 Acuity: NIKKI 3 jl7 Triage Assessment: 17:25 General: Appears in no apparent distress. uncomfortable, Behavior is calm, cooperative, jl7 appropriate for age. Pain: Complains of pain in left eye Pain currently is 8 out of 10 on a pain scale. 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 - Social history:: Smoking status: Patient/guardian denies using tobacco. - Ebola Screening: : No symptoms or risks identified at this time. Screenin:36 Abuse screen: Denies threats or abuse. Denies injuries from another. Nutritional ed1 screening: No deficits noted. Tuberculosis screening: No symptoms or risk factors identified. Fall Risk None identified. Assessment: 17:36 General: Appears uncomfortable, Behavior is calm, cooperative. Pain: Complains of pain ed1 in left eye Pain does not radiate. Pain currently is 8 out of 10 on a pain scale. Quality of pain is described as burning, Pain began 1 day ago. Is continuous. Neuro: Level of Consciousness is awake, alert, obeys commands, Oriented to person, place, time, situation. Cardiovascular: Denies chest pain, Heart tones S1 S2 present. Respiratory: Airway is patent Respiratory effort is even, unlabored, Respiratory pattern is regular, symmetrical. GI: No signs and/or symptoms were reported involving the gastrointestinal system. : No signs and/or symptoms were reported regarding the genitourinary system. EENT: Eyes are tearing on left eye Sclera/Cornea are reddened in left eye. Derm: Skin is intact, Skin is pink, warm \T\ dry. Musculoskeletal: Circulation, motion, and sensation intact. 17:45 Reassessment: I agree with previous assessment. hb 18:23 Reassessment: Patient appears in no apparent distress at this time. Patient and/or ed1 family updated on plan of care and expected duration. Pain level reassessed. Patient is alert, oriented x 3, equal unlabored respirations, skin warm/dry/pink. Patient states feeling better. Patient states symptoms have improved. 19:36 Reassessment: Patient appears in no apparent distress at this time. No changes from ed1 previously documented assessment. Patient and/or family updated on plan of care and expected duration. Pain level reassessed. Patient is alert, oriented x 3, equal unlabored respirations, skin warm/dry/pink. Patient states symptoms have not improved. Vital Signs: 17:25 BP 149 / 114; Pulse 87; Resp 16 S; Temp 99.2(O); Pulse Ox 99% on R/A; Weight 99.79 kg 7 (R); Height 5 ft. 2 in. (157.48 cm) (R); Pain 8/10; 18:23 BP 142 / 89; Pulse 76; Resp 19; Pulse Ox 100% on R/A; Pain 5/10; ed1 19:36 BP 146 / 83; Pulse 76; Resp 17; Pulse Ox 99% on R/A; Pain 6/10; ed1 17:25 Body Mass Index 40.24 (99.79 kg, 157.48 cm) 7 Visual Acuity: 18:23 Left Eye Visual acuity 20/50, Pupil size 3 mm, Normal, React To Light, Reactive To ed1 Accomodation; Right Eye Visual acuity 20/50, Pupil size 3 mm, Normal, React To Light, Reactive To Accomodation; Both Eyes Visual acuity 20/40; With Lenses; ED Course: 17:18 Patient arrived in ED. sb2 17:18 VIKKI GRANT is Private Physician. sb2 17:25 Triage completed. jl7 17:25 Arm band placed on right wrist. jl7 17:29 Erlin Issa PA is PHCP. [facility] 17:29 Russ Ayon MD is Attending Physician. [facility] 17:32 Gema Christensen LVN is Primary Nurse. ed1 17:36 Patient has correct armband on for positive identification. Bed in low position. Call ed1 light in reach. 17:38 Assist provider with eye exam of left eye. using fluorescein stain, Performed by Erlin ed1 Maegan JERONIMO Patient tolerated well. 18:33 Eye irrigation of left eye with 50 mL Patient tolerated poorly. Pt unable to tolerate ed1 eye wash. 19:26 Jaden Em MD is Referral Physician. [facility] 19:36 Patient did not have IV access during this emergency room visit. ed1 Administered Medications: 17:36 Drug: Tetracaine Drops 0.5 % 1 drops {Note: At bedside .} Route: Ophthalmic; Site: left ed1 eye; Outcome: 19:27 Discharge ordered by MD. [facility] 19:36 Discharged to home ambulatory. ed1 19:36 Condition: stable 19:36 Discharge instructions given to patient, Instructed on discharge instructions, follow up and referral plans. medication usage, Demonstrated understanding of instructions, follow-up care, medications, Prescriptions given X 1. 19:38 Patient left the ED. ed1 Signatures: Erlin Issa PA PA [facility] Gema Christensen LVN LVN ed1 Rhonda Pakrs, RN RN Kassandra Styles RN RN jl7 Janet Nevarez sb2
--- NOTE | 2018-02-12 19:27 | EDPHYS ---
Physician Documentation [facility] Name: Anisha Navarro Age: 27 yrs Sex: Female : 1990 Arrival Date: 02/12/2018 Time: 17:18 Bed 30 Private MD: VIKKI GRANT ED Physician Russ Ayon HPI: 02/12 18:10 This 27 yrs old Female presents to ER via Ambulatory with complaints of Eye jmm Problem. 18:10 Onset: The symptoms/episode began/occurred gradually, 2 week(s) ago. Duration: the jmm symptoms worsening. This is a 27 year old female with no chronic medical conditions that presents to the ED with left eye pain beginning approx 2 week ago with clear drainage. Patient states over the past 2 days developing increased pain with headache. Patient states she recently began using a new mascara. . 18:10 Patient denies chemical exposure. symptoms are localized to the left eye. 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 - Social history:: Smoking status: Patient/guardian denies using tobacco. - Ebola Screening: : No symptoms or risks identified at this time. ROS: 18:10 Constitutional: Negative for fever, chills, and weight loss. jmm 18:10 Cardiovascular: Negative for chest pain, palpitations, and edema, Respiratory: Negative for shortness of breath, cough, wheezing, and pleuritic chest pain. 18:10 Eyes: Positive for pain, photophobia. 18:10 Neuro: Positive for headache. 18:10 All other systems are negative. Exam: 18:10 Constitutional: This is a well developed, well nourished patient who is awake, alert, jmm and in no acute distress. Head/Face: atraumatic. Neck: Trachea midline, Supple Chest/axilla: Normal chest wall appearance and motion. Cardiovascular: Regular rate and rhythm. No edema appreciated Respiratory: Normal respirations, no respiratory distress appreciated Abdomen/GI: Non distended, soft Back: Normal ROM Skin: General appearance color normal MS/ Extremity: Moves all extremities, no obvious deformities appreciated, no edema noted to the lower extremities Neuro: Awake and alert, normal gait Psych: Behavior is normal, Mood is normal, Patient is cooperative and pleasant 18:11 Eyes: Conjunctiva: normal, Corneas: abrasion, is not appreciated, foreign body, is not jmm appreciated, a fluorescein strip employed to appreciate the findings, Anterior chamber: normal, Intraocular pressure: left eye = 20mmHg. Vital Signs: 17:25 BP 149 / 114; Pulse 87; Resp 16 S; Temp 99.2(O); Pulse Ox 99% on R/A; Weight 99.79 kg jl7 (R); Height 5 ft. 2 in. (157.48 cm) (R); Pain 8/10; 18:23 BP 142 / 89; Pulse 76; Resp 19; Pulse Ox 100% on R/A; Pain 5/10; ed1 19:36 BP 146 / 83; Pulse 76; Resp 17; Pulse Ox 99% on R/A; Pain 6/10; ed1 17:25 Body Mass Index 40.24 (99.79 kg, 157.48 cm) 7 Visual Acuity: 18:23 Left Eye Visual acuity 20/50, Pupil size 3 mm, Normal, React To Light, Reactive To ed1 Accomodation; Right Eye Visual acuity 20/50, Pupil size 3 mm, Normal, React To Light, Reactive To Accomodation; Both Eyes Visual acuity 20/40; With Lenses; MDM: 17:53 Patient medically screened. [facility] 19:25 Data reviewed: vital signs, nurses notes. Counseling: I had a detailed discussion with maria d the patient and/or guardian regarding: the historical points, exam findings, and any diagnostic results supporting the discharge/admit diagnosis, the need for outpatient follow up, to return to the emergency department if symptoms worsen or persist or if there are any questions or concerns that arise at home. ED course: IOP normal. Unilateral pain. I do not suspect pseudotumor cerebrii. No FB appreciated. Patient denies chemical exposure. Patient advised to follow up with ophthalmology and otherwise given strict return precautions. Patient understood and agrees with the plan of care. . 02/12 17: Order name: Visual Acuity; Complete Time: 18:24 [facility] 02/12 17:29 Order name: Eye Tray; Complete Time: 17:36 [facility] 02/12 17:29 Order name: Fluoresene Opth strip; Complete Time: 17:36 [facility] 02/12 18:26 Order name: Misc. Order: Irrigate left eye; Complete Time: 18:36 [facility] Administered Medications: 17:36 Drug: Tetracaine Drops 0.5 % 1 drops {Note: At bedside .} Route: Ophthalmic; Site: left ed1 eye; Disposition: 21:05 Co-signature as Attending Physician, Russ Ayon MD. ma2 Disposition: 02/12/18 19:27 Discharged to Home. Impression: Ocular pain, left eye. - Condition is Stable. - Discharge Instructions: Viral Conjunctivitis. - Prescriptions for Erythromycin 5 mg/gram (0.5 %) Ophthalmic Ointment - apply 1 ribbon by OPHTHALMIC route every 8 hours; 1 tube. - Medication Reconciliation Form, Thank You Letter, Antibiotic Education, Prescription Opioid Use, Work release form form. - Follow up: Jaden Em MD; When: 1 - 2 days; Reason: Recheck today's complaints, Continuance of care, Re-evaluation by your physician. Signatures: Erlin Issa PA PA Gema Henning, NURSE UNIT MANAGER NURSE UNIT MANAGER ed1 Kassandra Bell RN RN jl7 Russ Ayon MD MD ma2 Corrections: (The following items were deleted from the chart) 19:38 19:27 02/12/2018 19:27 Discharged to Home. Impression: Ocular pain, left eye. Condition ed1 is Stable. Forms are Medication Reconciliation Form, Thank You Letter, Antibiotic Education, Prescription Opioid Use. Follow up: Jaden Em; When: 1 - 2 days; Reason: Recheck today's complaints, Continuance of care, Re-evaluation by your physician. [facility]
== END 2018-02-12 19:38 | disposition home or self-care (01) ==
LOC: ER 17:15
DX: H57.12 Ocular pain, left eye (principal)
CPT/HCPCS: 99284

== ENCOUNTER 2018-02-20 21:37 | Emergency (ER) | payer SELFPAY ==
[2018-02-20 22:56] LABS: Urine Blood NEGATIVE (NEG); Urine Glucose NEGATIVE (NEG); Urine Protein 2+ (NEG); Urine Specific Gravity >1.030 (1.005-1.030); Urine pH 5.5 (5.0-7.0)
[2018-02-20] MEDS ORDERED: NA CHLORIDE 0.9% 1,000 ML ONE (23:07)
[2018-02-20] MEDS ORDERED: ONDANSETRON 4 MG/2 ML VIAL ONE (23:07)
[2018-02-20 23:21] LABS: Absolute Lymphocytes (CBC) 2.6 K/uL (0.7-4.9); Absolute Monocytes 0.6 K/uL (0.1-1.3); Absolute Neutrophil 8.3 K/uL (1.8-8.0); Basophils % 0.7 % (0-1.3); Eosinophils % 1.8 % (0-4.4); Hematocrit 43.2 % (36.0-45.0); Lymphocytes % 21.8 % (15.3-44.8); MCH 30.5 pg (27.0-35.0); MPV 8.2 fL (7.6-11.3); Monocytes % 5.2 % (3.3-12.3); RBC Red Blood Cell Count 4.97 M/uL (3.86-4.86)
[2018-02-20 23:38] LABS: Potassium 3.9 mmol/L (3.5-5.1)
--- NOTE | 2018-02-21 00:28 | ER ---
Nurse's Notes [facility] Name: Anisha Navarro Age: 27 yrs Sex: Female : 1990 Arrival Date: 02/20/2018 Time: 21:51 Bed 26 Private MD: Diagnosis: Vomiting;Diarrhea, unspecified Presentation: 02/20 22:37 Presenting complaint: Patient states: Patient has been vomiting during the whole day. ao Patient is positive for diarrhea and denies abdominal pain. Transition of care: patient was not received from another setting of care. Onset of symptoms was February 19, 2018 at 21:00. Risk Assessment: Do you want to hurt yourself or someone else? Patient reports no desire to harm self or others. Initial Sepsis Screen: Does the patient meet any 2 criteria? No. Patient's initial sepsis screen is negative. Does the patient have a suspected source of infection? No. Patient's initial sepsis screen is negative. Care prior to arrival: None. 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 - Social history:: Smoking status: Patient/guardian denies using tobacco, Patient/guardian denies using alcohol, street drugs. - Ebola Screening: : Patient negative for fever greater than or equal to 101.5 degrees Fahrenheit, and additional compatible Ebola Virus Disease symptoms Patient denies exposure to infectious person Patient denies travel to an Ebola-affected area in the 21 days before illness onset. Screenin:46 Abuse screen: Denies threats or abuse. Denies injuries from another. Nutritional ak1 screening: No deficits noted. Tuberculosis screening: No symptoms or risk factors identified. Fall Risk None identified. Assessment: 22:46 General: Appears in no apparent distress. Behavior is calm, cooperative. Pain: Denies ak1 pain. Neuro: No deficits noted. Cardiovascular: No deficits noted. Respiratory: No deficits noted. GI: Abdomen is round non-distended, obese. GI: Reports nausea, vomiting, since today. : No signs and/or symptoms were reported regarding the genitourinary system. EENT: No signs and/or symptoms were reported regarding the EENT system. Derm: No signs and/or symptoms reported regarding the dermatologic system. Musculoskeletal: No signs and/or symptoms reported regarding the musculoskeletal system. 02/21 00:45 Reassessment: Patient appears in no apparent distress at this time. rv Vital Signs: 02/20 22:39 BP 133 / 98; Pulse 97; Resp 16; Temp 99.2(O); Pulse Ox 98% ; Weight 99.79 kg; Height 5 ao ft. 2 in. (157.48 cm); Pain 7/10; 23:12 BP 130 / 87; Pulse 104; Resp 16; Pulse Ox 97% on R/A; ak1 02/21 00:45 BP 129 / 71; Pulse 88; Resp 17; Pulse Ox 99% on R/A; rv 02/20 22:39 Body Mass Index 40.24 (99.79 kg, 157.48 cm) ao ED Course: 02/20 21:51 Patient arrived in ED. ds1 22:38 Triage completed. ao 22:40 Arm band placed on right wrist. Patient placed in an exam room, on a stretcher, on ao pulse oximetry, Patient notified of wait time. 22:44 Pamela Sibley, RN is Primary Nurse. ak1 22:45 Patient has correct armband on for positive identification. Bed in low position. Call ak1 light in reach. Side rails up X 1. Pulse ox on. NIBP on. 22:52 Issa Escobar NP is PHCP. pm1 22:52 Wily Zhang MD is Attending Physician. pm1 22:53 Urine Dipstick--Ancillary (enter results) Sent. ds4 23:12 Inserted saline lock: 20 gauge in right antecubital area, using aseptic technique. ds4 Blood collected. 02/21 00:45 No provider procedures requiring assistance completed. IV discontinued, bleeding rv controlled, No redness/swelling at site. Pressure dressing applied. Administered Medications: 02/20 23:11 Drug: NS 0.9% 1000 ml Route: IV; Rate: 1000 ml; Site: right antecubital; ak1 02/21 00:58 Follow up: IV Status: Completed infusion ak1 02/20 23:12 Drug: Zofran 4 mg Route: IVP; Site: right antecubital; ak1 02/21 00:58 Follow up: Response: No adverse reaction ak1 Outcome: 00:28 Discharge ordered by . pm1 00:45 Discharged to home ambulatory. rv 00:45 Condition: good 00:45 Discharge instructions given to patient, family, Instructed on discharge instructions, follow up and referral plans. medication usage, Demonstrated understanding of instructions, follow-up care, medications, Prescriptions given X 1. 01:06 Patient left the ED. rv Signatures: Annabelle Dennis ds1 Thee Fernandez ds4 Pamela Sibley RN RN ak1 Ramsey Montero RN RN ao Marinas, Patrick, PETAR SUPERVISOR [employer] pm1 Manuel Flor RN RN rv
--- NOTE | 2018-02-21 00:29 | EDPHYS ---
Physician Documentation [facility] Name: Anisha Navarro Age: 27 yrs Sex: Female : 1990 Arrival Date: 02/20/2018 Time: 21:51 Bed 26 Private MD: ED Physician Wily Zhang HPI: 02/20 23:00 This 27 yrs old Female presents to ER via Ambulatory with complaints of pm1 Vomiting, Abdominal Pain. 23:00 The patient presents to the emergency department with nausea, vomiting, diarrhea. pm1 Onset: The symptoms/episode began/occurred this morning. Possible causes: sick contacts, by family. The symptoms are aggravated by food , The symptoms are alleviated by nothing. Associated signs and symptoms: Pertinent negatives: abdominal pain, dysuria, fever. The patient has not experienced similar symptoms in the past. The patient has not recently seen a physician. 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 - Social history:: Smoking status: Patient/guardian denies using tobacco, Patient/guardian denies using alcohol, street drugs. - Ebola Screening: : Patient negative for fever greater than or equal to 101.5 degrees Fahrenheit, and additional compatible Ebola Virus Disease symptoms Patient denies exposure to infectious person Patient denies travel to an Ebola-affected area in the 21 days before illness onset. ROS: 23:00 Constitutional: Negative for fever, chills, and weight loss, Eyes: Negative for injury, pm1 pain, redness, and discharge, ENT: Negative for injury, pain, and discharge, Neck: Negative for injury, pain, and swelling, Cardiovascular: Negative for chest pain, palpitations, and edema, Respiratory: Negative for shortness of breath, cough, wheezing, and pleuritic chest pain. 23:00 Back: Negative for injury and pain, : Negative for injury, bleeding, discharge, and swelling, MS/Extremity: Negative for injury and deformity, Skin: Negative for injury, rash, and discoloration, Neuro: Negative for headache, weakness, numbness, tingling, and seizure. 23:00 Abdomen/GI: Positive for nausea, vomiting, and diarrhea, Negative for abdominal pain. Exam: 23:00 Constitutional: This is a well developed, well nourished patient who is awake, alert, pm1 and in no acute distress. Head/Face: Normocephalic, atraumatic. Eyes: Pupils equal round and reactive to light, extra-ocular motions intact. Lids and lashes normal. Conjunctiva and sclera are non-icteric and not injected. Cornea within normal limits. Periorbital areas with no swelling, redness, or edema. ENT: Nares patent. No nasal discharge, no septal abnormalities noted. Tympanic membranes are normal and external auditory canals are clear. Oropharynx with no redness, swelling, or masses, exudates, or evidence of obstruction, uvula midline. Mucous membranes moist. Neck: Trachea midline, no thyromegaly or masses palpated, and no cervical lymphadenopathy. Supple, full range of motion without nuchal rigidity, or vertebral point tenderness. No Meningismus. Chest/axilla: Normal chest wall appearance and motion. Nontender with no deformity. No lesions are appreciated. Cardiovascular: Regular rate and rhythm with a normal S1 and S2. No gallops, murmurs, or rubs. Normal PMI, no JVD. No pulse deficits. Respiratory: Lungs have equal breath sounds bilaterally, clear to auscultation and percussion. No rales, rhonchi or wheezes noted. No increased work of breathing, no retractions or nasal flaring. Abdomen/GI: Soft, non-tender, with normal bowel sounds. No distension or tympany. No guarding or rebound. No evidence of tenderness throughout. Back: No spinal tenderness. No costovertebral tenderness. Full range of motion. Skin: Warm, dry with normal turgor. Normal color with no rashes, no lesions, and no evidence of cellulitis. MS/ Extremity: Pulses equal, no cyanosis. Neurovascular intact. Full, normal range of motion. 23:00 Neuro: Orientation: is normal, Motor: is normal, moves all fours, strength is normal, strength is 5/5 in all extremities, Gait: is steady, at a normal pace, without difficulty. Vital Signs: 22:39 BP 133 / 98; Pulse 97; Resp 16; Temp 99.2(O); Pulse Ox 98% ; Weight 99.79 kg; Height 5 ao ft. 2 in. (157.48 cm); Pain 7/10; 23:12 BP 130 / 87; Pulse 104; Resp 16; Pulse Ox 97% on R/A; ak1 02/21 00:45 BP 129 / 71; Pulse 88; Resp 17; Pulse Ox 99% on R/A; rv 02/20 22:39 Body Mass Index 40.24 (99.79 kg, 157.48 cm) ao MDM: 02/20 22:53 Patient medically screened. pm1 02/21 00:27 Data reviewed: vital signs. Data interpreted: Pulse oximetry: on room air is 97 %. pm1 Interpretation: normal. Counseling: I had a detailed discussion with the patient and/or guardian regarding: the historical points, exam findings, and any diagnostic results supporting the discharge/admit diagnosis, lab results, the need for outpatient follow up, to return to the emergency department if symptoms worsen or persist or if there are any questions or concerns that arise at home. 02/20 22:52 Order name: Urine Dipstick--Ancillary (enter results); Complete Time: 23:43 ds4 02/20 22:53 Order name: Urine --Ancillary (enter results); Complete Time: 23:43 ds4 02/20 22:56 Order name: Basic Metabolic Panel; Complete Time: 23:43 pm1 02/20 22:56 Order name: CBC with Diff; Complete Time: 23:43 pm1 02/20 22:56 Order name: IV Saline Lock; Complete Time: 23:13 pm1 02/20 22:56 Order name: Labs collected and sent; Complete Time: 23:13 pm1 Administered Medications: 02/20 23:11 Drug: NS 0.9% 1000 ml Route: IV; Rate: 1000 ml; Site: right antecubital; ak1 02/21 00:58 Follow up: IV Status: Completed infusion ak1 02/20 23:12 Drug: Zofran 4 mg Route: IVP; Site: right antecubital; ak1 02/21 00:58 Follow up: Response: No adverse reaction ak1 Disposition: 06:40 Co-signature as Attending Physician, Wily Zhang MD Available for consultation at ps1 all times. . Disposition: 02/21/18 00:28 Discharged to Home. Impression: Vomiting, Diarrhea, unspecified. - Condition is Stable. - Discharge Instructions: Food Choices to Help Relieve Diarrhea, Adult, Nausea and Vomiting, Adult, Viral Gastroenteritis, Adult. - Prescriptions for Zofran 4 mg Oral Tablet - take 1 tablet by ORAL route every 12 hours As needed; 20 tablet. - Work release form, Medication Reconciliation Form, Thank You Letter, Antibiotic Education, Prescription Opioid Use form. - Follow up: Emergency Department; When: As needed; Reason: Worsening of condition. Follow up: Private Physician; When: 2 - 3 days; Reason: Recheck today's complaints, Continuance of care, Re-evaluation by your physician. - Problem is new. - Symptoms have improved. Signatures: Dispatcher [employer] EDMS Pamela Sibley, RN RN ak1 Ramsey Montero RN RN Issa Hawkins, CONFIGURATION MANAGEMENT ARCHITECT CONFIGURATION MANAGEMENT ARCHITECT pm1 Wily Zhang MD MD ps1 Vicente, Ronaldo, RN RN rv Corrections: (The following items were deleted from the chart) 01:06 00:28 02/21/2018 00:28 Discharged to Home. Impression: Vomiting; Diarrhea, unspecified. rv Condition is Stable. Forms are Medication Reconciliation Form, Thank You Letter, Antibiotic Education, Prescription Opioid Use. Follow up: Emergency Department; When: As needed; Reason: Worsening of condition. Follow up: Private Physician; When: 2 - 3 days; Reason: Recheck today's complaints, Continuance of care, Re-evaluation by your physician. Problem is new. Symptoms have improved. pm1
== END 2018-02-21 01:06 | disposition home or self-care (01) ==
LOC: ER 21:37
DX: R19.7 Diarrhea, unspecified (principal)
CPT/HCPCS: 36415; 80048; 81003; 81025; 85025; 96361; 96374; 99284; J2405; J7030

== ENCOUNTER 2018-07-10 10:40 | Emergency (ER) | payer SELFPAY ==
--- OUTSIDE RECORDS SUMMARY | 2018-07-10 10:47 | XMS REPORT ---
:1990 [facility] Address [address] [place] [address] Dr. Dang [address] [place] [id number] Care Team Providers Name Role Phone Unavailable Unavailable Unavailable Problems This patient has no known problems. Allergies, Adverse Reactions, Alerts This patient has no known allergies or adverse reactions. Medications This patient has no known medications.
[2018-07-10] MEDS ORDERED: FENTANYL CITR 100 MCG/2 ML ONE (11:27)
[2018-07-10] MEDS ORDERED: NA CHLORIDE 0.9% 2,000 ML ONE (11:27)
[2018-07-10 11:40] LABS: Absolute Lymphocytes (CBC) 2.2 K/uL (0.7-4.9); Absolute Monocytes 0.7 K/uL (0.1-1.3); Basophils % 0.9 % (0-1.3); Hematocrit 40.6 % (36.0-45.0); Lymphocytes % 14.3 % (15.3-44.8); MPV 8.4 fL (7.6-11.3); Monocytes % 4.5 % (3.3-12.3); RBC Red Blood Cell Count 4.67 M/uL (3.86-4.86)
[2018-07-10 12:10] LABS: Albumin 3.8 g/dL (3.4-5.0); Bilirubin Direct 0.1 mg/dL (0-0.2); Bilirubin Total 0.4 mg/dL (0.2-1.0); Potassium 3.9 mmol/L (3.5-5.1); Protein, Total 8.2 g/dL (6.4-8.2)
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
[2018-07-10] MEDS ORDERED: DEXAMETHASONE 10 MG/ML VIAL ONE (14:31)
== END 2018-07-10 14:32 | disposition home or self-care (01) ==
LOC: ER 10:40
DX: L56.8 Other specified acute skin changes due to ultraviolet radiation (principal)
CPT/HCPCS: 36415; 80048; 80076; 84703; 85025; 96361; 96374; 96375; 99283; J1100; J3010; J7030

== ENCOUNTER 2018-10-11 16:38 | Emergency (ER) | payer SELFPAY ==
--- OUTSIDE RECORDS SUMMARY | 2018-10-11 16:40 | XMS REPORT ---
:1990 [facility] [address] [place] [address] Dr. Orozco. [address] [place] [id number] Care Team Providers Name Role Phone Unavailable Unavailable Unavailable Problems This patient has no known problems. Allergies, Adverse Reactions, Alerts This patient has no known allergies or adverse reactions. Medications This patient has no known medications.
--- NOTE | 2018-10-11 17:30 | ER ---
Nurse's Notes [facility] Name: Anisha Navarro Age: 28 yrs Sex: Female : 1990 Arrival Date: 10/11/2018 Time: 16:41 Bed 14 Private MD: Diagnosis: Cutaneous abscess of neck Presentation: 10/11 16:54 Presenting complaint: Patient states: "my neck has been hurting for like a week and aa5 Sunday I woke up with a bump on the right side of my neck (right posterior side of neck)". Pt denies fever/chills. 16:56 Transition of care: patient was not received from another setting of care. Onset of aa5 symptoms was September 2018. Risk Assessment: Do you want to hurt yourself or someone else? Patient reports no desire to harm self or others. Initial Sepsis Screen: Does the patient meet any 2 criteria? No. Patient's initial sepsis screen is negative. Does the patient have a suspected source of infection? No. Patient's initial sepsis screen is negative. Care prior to arrival: None. 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 - Social history:: Smoking status: Patient/guardian denies using tobacco. - Ebola Screening: : No symptoms or risks identified at this time. Screenin:00 Abuse screen: Denies threats or abuse. Denies injuries from another. Nutritional sg screening: No deficits noted. Tuberculosis screening: No symptoms or risk factors identified. Never had TB. Fall Risk None identified. Assessment: 17:00 General: Appears in no apparent distress. well groomed, well developed, well nourished, sg Behavior is calm, cooperative, appropriate for age. Pain: Complains of pain in right posterior aspect of neck Quality of pain is described as aching. Neuro: Level of Consciousness is awake, alert, obeys commands, Oriented to person, place, time, Photographic Editor are equal bilaterally Moves all extremities. Gait is steady, Speech is normal, Facial symmetry appears normal. Cardiovascular: Heart tones S1 S2 present Patient's skin is warm and dry. Chest pain is denied. Respiratory: Airway is patent Respiratory effort is even, unlabored, Respiratory pattern is regular, symmetrical. GI: Abdomen is round non-distended. : No signs and/or symptoms were reported regarding the genitourinary system. EENT: No signs and/or symptoms were reported regarding the EENT system. Derm: Skin is pink, warm \\T\\ dry. Abscess located on right posterior aspect of neck is quarter sized, has no drainage, is red, is raised. Musculoskeletal: Circulation, motion, and sensation intact. Range of motion: intact in all extremities. Vital Signs: 16:56 BP 170 / 108; Pulse 93; Resp 16 S; Temp 98.7(O); Pulse Ox 98% on R/A; Weight 104.33 kg aa5 (R); Height 5 ft. 2 in. (157.48 cm) (R); Pain 10/10; 16:56 Body Mass Index 42.07 (104.33 kg, 157.48 cm) aa5 ED Course: 16:41 Patient arrived in ED. rg4 16:56 Triage completed. aa5 16:56 Arm band placed on. aa5 16:57 Angelica Manning FNP-C [facility]. kb 16:57 Antonio Hartley MD is Attending Physician. kb 17:00 Patient has correct armband on for positive identification. Bed in low position. Call sg light in reach. Side rails up X2. Pulse ox on. NIBP on. Warm blanket given. Head of bed elevated. 17:45 No provider procedures requiring assistance completed. Patient did not have IV access sg during this emergency room visit. 17:47 Kvng Fletcher, RN is Primary Nurse. sg Administered Medications: No medications were administered Outcome: 17:30 Discharge ordered by . kb 17:48 Discharged to home ambulatory, with friend. sg 17:48 Condition: good 17:48 Discharge instructions given to patient, Instructed on discharge instructions, follow up and referral plans. safety practices, Demonstrated understanding of instructions, follow-up care, medications, Prescriptions given X 1. 17:51 Patient left the ED. aa5 Signatures: Angelica Manning FNP-C FNP-Kvng Chavis, RN RN Lisha Panda RN RN aa5 Evette Ricardo rg4
--- NOTE | 2018-10-11 17:30 | EDPHYS ---
Physician Documentation [facility] Name: Anisha Navarro Age: 28 yrs Sex: Female : 1990 Arrival Date: 10/11/2018 Time: 16:41 Bed 14 Private MD: ED Physician Antonio Hartley HPI: 10/11 17:33 This 28 yrs old Female presents to ER via Ambulatory with complaints of Boil, kb Neck Problem. 17:33 the patient presents with a swollen area of the right posterior aspect of neck. kb Description: swollen. Onset: The symptoms/episode began/occurred 2 day(s) ago. Possible cause(s): unknown. Associated signs and symptoms: Pertinent positives: swelling, Pertinent negatives: discharge, drainage, erythema, foreign body sensation, fever, headache, nausea, shortness of breath, vomiting. Modifying factors: the symptoms are alleviated by nothing, the symptoms are aggravated by nothing. Severity of symptoms: At their worst the symptoms were mild, in the emergency department the symptoms are unchanged. The patient has experienced a previous episode. The patient has not recently seen a physician. 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 - Social history:: Smoking status: Patient/guardian denies using tobacco. - Ebola Screening: : No symptoms or risks identified at this time. ROS: 17:31 Constitutional: Negative for fever, chills, and weight loss, Cardiovascular: Negative kb for chest pain, palpitations, and edema, Respiratory: Negative for shortness of breath, cough, wheezing, and pleuritic chest pain, Abdomen/GI: Negative for abdominal pain, nausea, vomiting, diarrhea, and constipation, MS/Extremity: Negative for injury and deformity, Neuro: Negative for headache, weakness, numbness, tingling, and seizure. 17:31 Skin: Positive for abscess, of the right posterior aspect of neck. Exam: 17:31 Constitutional: This is a well developed, well nourished patient who is awake, alert, kb and in no acute distress. Head/Face: Normocephalic, atraumatic. Chest/axilla: Normal chest wall appearance and motion. Nontender with no deformity. No lesions are appreciated. Cardiovascular: Regular rate and rhythm with a normal S1 and S2. No gallops, murmurs, or rubs. Normal PMI, no JVD. No pulse deficits. Respiratory: Lungs have equal breath sounds bilaterally, clear to auscultation and percussion. No rales, rhonchi or wheezes noted. No increased work of breathing, no retractions or nasal flaring. Abdomen/GI: Soft, non-tender, with normal bowel sounds. No distension or tympany. No guarding or rebound. No evidence of tenderness throughout. MS/ Extremity: Pulses equal, no cyanosis. Neurovascular intact. Full, normal range of motion. Neuro: Awake and alert, GCS 15, oriented to person, place, time, and situation. Cranial nerves II-XII grossly intact. Motor strength 5/5 in all extremities. Sensory grossly intact. Cerebellar exam normal. Normal gait. 17:31 Skin: abscess, that is small, of the right posterior aspect of neck, with induration. Vital Signs: 16:56 BP 170 / 108; Pulse 93; Resp 16 S; Temp 98.7(O); Pulse Ox 98% on R/A; Weight 104.33 kg aa5 (R); Height 5 ft. 2 in. (157.48 cm) (R); Pain 10/10; 16:56 Body Mass Index 42.07 (104.33 kg, 157.48 cm) aa5 MDM: 16:58 Patient medically screened. kb 17:30 Data reviewed: vital signs, nurses notes. Data interpreted: Pulse oximetry: on room air kb is 98 %. Interpretation: normal. Counseling: I had a detailed discussion with the patient and/or guardian regarding: the historical points, exam findings, and any diagnostic results supporting the discharge/admit diagnosis, the need for outpatient follow up, a family practitioner, to return to the emergency department if symptoms worsen or persist or if there are any questions or concerns that arise at home. Administered Medications: No medications were administered Disposition: 10/11/18 17:30 Discharged to Home. Impression: Cutaneous abscess of neck. - Condition is Stable. - Discharge Instructions: Skin Abscess, [id number]. - Prescriptions for Bactrim DS 800- 160 mg Oral Tablet - take 1 tablet by ORAL route every 12 hours for 10 days; 20 tablet. - Medication Reconciliation Form, Thank You Letter, Antibiotic Education, Prescription Opioid Use, Work release form form. - Follow up: Emergency Department; When: As needed; Reason: Worsening of condition. Follow up: Private Physician; When: 2 - 3 days; Reason: Recheck today's complaints, Continuance of care, Re-evaluation by your physician. Addendum: 10/12/2018 17:56 Co-signature as Attending Physician, Antonio Hartley MD. g s Signatures: Angelica Manning, DAVID-C REFRIGERATED COMPANY DRIVER-Lisha Carson, RN RN aa5 Antonio Hartley MD MD Corrections: (The following items were deleted from the chart) 10/11 17:51 17:30 10/11/2018 17:30 Discharged to Home. Impression: Cutaneous abscess of neck. aa5 Condition is Stable. Forms are Medication Reconciliation Form, Thank You Letter, Antibiotic Education, Prescription Opioid Use. Follow up: Emergency Department; When: As needed; Reason: Worsening of condition. Follow up: Private Physician; When: 2 - 3 days; Reason: Recheck today's complaints, Continuance of care, Re-evaluation by your physician. kb
== END 2018-10-11 17:51 | disposition home or self-care (01) ==
LOC: ER 16:38
DX: L02.11 Cutaneous abscess of neck (principal)
CPT/HCPCS: 99283

== ENCOUNTER 2019-06-02 08:54 | Emergency (ER) | payer SELFPAY ==
--- OUTSIDE RECORDS SUMMARY | 2019-06-02 08:55 | XMS REPORT ---
:1990 [facility] Address [address] [place] [address] Dr. Dang [address] [place] [id number] Care Team Providers Name Role Phone Unavailable Unavailable Unavailable Problems This patient has no known problems. Allergies, Adverse Reactions, Alerts This patient has no known allergies or adverse reactions. Medications This patient has no known medications.
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
[2019-06-02] MEDS ORDERED: MORPHINE 4 MG/ML SYR ONE (09:36)
[2019-06-02] MEDS ORDERED: ONDANSETRON 4 MG/2 ML VIAL ONE (09:36)
[2019-06-02] MEDS ORDERED: NA CHLORIDE 0.9% 1,000 ML ONE (09:36)
[2019-06-02 09:50] LABS: Absolute Lymphocytes (CBC) 2.9 K/uL (0.7-4.9); Basophils % 1.2 % (0-1.3); Hematocrit 40.9 % (36.0-45.0); Lymphocytes % 30.3 % (15.3-44.8); MPV 8.2 fL (7.6-11.3); RBC Red Blood Cell Count 4.87 M/uL (3.86-4.86)
[2019-06-02 10:08] LABS: ALT/SGPT 52 U/L (12-78); AST/SGOT 19 U/L (15-37); Albumin 3.5 g/dL (3.4-5.0); Alkaline Phosphatase 165 U/L (45-117); BUN Blood Urea Nitrogen 8 mg/dL (7-18); Bicarbonate 25 mmol/L (21-32); Bilirubin Direct < 0.1 mg/dL (0-0.2); Bilirubin Total 0.3 mg/dL (0.2-1.0); Glucose Level 225 mg/dL (74-106); Lipase 144 U/L (73-393); Protein, Total 7.7 g/dL (6.4-8.2); Sodium Level 138 mmol/L (136-145)
[2019-06-02 10:24] LABS: Urine Blood NEGATIVE (NEG); Urine Glucose 1+ (NEG); Urine Protein NEGATIVE (NEG); Urine Specific Gravity 1.025 (1.005-1.030); Urine pH 5.5 (5.0-7.0)
--- NOTE | 2019-06-02 10:59 | RAD REPORT ---
EXAM DESCRIPTION: CT - Abdomen Pelvis W Contrast - 06/02/2019 10:33 am CLINICAL HISTORY: Abdominal pain COMPARISON: January 2018 TECHNIQUE: Computed axial tomography of the abdomen pelvis was obtained. 100 cc Isovue-300 was admin istered intravenously. Oral contrast was not requested which limits evaluation of bowel. All CT scans are performed using dose optimization technique as appropriate and may include automated exposure control or mA/KV adjustment according to patient size. FINDINGS: Fatty liver. Cholecystectomy. Spleen, pancreas, adrenal and kidneys appear unremarkable. There is no evidence of diverticulitis. Normal appendix 11 millimeter lymph node within the right lower quadrant near the cecum IMPRESSION: 11 millimeter lymph node within the right lower quadrant is nonspecific but probably brittney ctive in nature. It has increased in size since the prior exam. It is recommended that the patient lovett ve a followup CT abdomen without contrast
--- NOTE | 2019-06-02 11:11 | ER ---
Nurse's Notes [facility] Name: Anisha Navarro Age: 29 yrs Sex: Female : 1990 Arrival Date: 06/02/2019 Time: 08:56 Bed 17 Private MD: Diagnosis: Unspecified abdominal pain;Diarrhea, unspecified;Vomiting Presentation: 06/01 09:12 Chief complaint: Patient states: abd pain, N/V that began 5 days ago. Coronavirus ss screen: The patient has NOT traveled to a country currently being monitored by the [facility] within the last 14 days. Proceed with normal triage procedures. Ebola Screen: Patient denies exposure to infectious person. Patient denies travel to an Ebola-affected area in the 21 days before illness onset. Initial Sepsis Screen: Does the patient meet any 2 criteria? No. Patient's initial sepsis screen is negative. Does the patient have a suspected source of infection? No. Patient's initial sepsis screen is negative. Risk Assessment: Do you want to hurt yourself or someone else? Patient reports no desire to harm self or others. 09:12 Method Of Arrival: Ambulatory ss 09:12 Acuity: NIKKI 3 ss Historical: - Allergies: 09:14 No Known Allergies; ss - Home Meds: 09:14 None [Active]; ss - PMHx: 09:14 Kidney stones; ss - PSHx: 09:14 Cholecystectomy; Carpal Tunnel Repair; ss - Immunization history:: Adult Immunizations up to date. - Social history:: Smoking status: Patient denies any tobacco usage or history of. Screenin:40 Abuse screen: Denies threats or abuse. Denies injuries from another. Nutritional hb screening: No deficits noted. Tuberculosis screening: No symptoms or risk factors identified. Fall Risk None identified. Assessment: 09:40 General: Appears in no apparent distress. Behavior is calm, cooperative. Pain: Pain hb currently is 9 out of 10 on a pain scale. Neuro: Level of Consciousness is awake, alert, obeys commands, Oriented to person, place, time, situation. Cardiovascular: Capillary refill < 3 seconds Patient's skin is warm and dry. Respiratory: Airway is patent Respiratory effort is even, unlabored, Respiratory pattern is regular, symmetrical. GI: Abdomen is obese, Bowel sounds present X 4 quads. Abd is soft and non tender X 4 quads. : No signs and/or symptoms were reported regarding the genitourinary system. EENT: No signs and/or symptoms were reported regarding the EENT system. Derm: Skin is pink, warm \T\ dry. Musculoskeletal: No signs and/or symptoms reported regarding the musculoskeletal system. 10:30 Reassessment: Patient appears in no apparent distress at this time. Patient and/or hb family updated on plan of care and expected duration. Pain level reassessed. Patient is alert, oriented x 3, equal unlabored respirations, skin warm/dry/pink. Vital Signs: 09:11 BP 150 / 105; Pulse 94; Resp 16; Temp 98.0(TE); Pulse Ox 100% on R/A; Weight 106.59 kg; ss Height 5 ft. 2 in. (157.48 cm); Pain 10/10; 11:00 BP 146 / 86; Pulse 83; Resp 16; Pulse Ox 100% on R/A; hb 09:11 Body Mass Index 42.98 (106.59 kg, 157.48 cm) ED Course: 08:56 Patient arrived in ED. rg4 09:11 Arm band placed on right wrist. ss 09:12 Triage completed. ss 09:16 Issa Escobar, PETAR is PHCP. pm1 09:16 Zaid Lee MD is Attending Physician. pm1 09:28 Radiology exam delayed due to lab results not completed at this time. (BUN/Creatinine) nj test not completed at this time. 09:29 Rhonda Parks, RN is Primary Nurse. hb 09:32 Patient has correct armband on for positive identification. Placed in gown. Bed in low hb position. Call light in reach. Side rails up X 1. 09:45 Inserted saline lock: 20 gauge in right antecubital area, using aseptic technique. hb Blood collected. 10:33 CT Abd/Pelvis - IV Contrast Only In Process Unspecified. EDMS 11:26 No provider procedures requiring assistance completed. IV discontinued, intact, hb bleeding controlled, No redness/swelling at site. Pressure dressing applied. Administered Medications: 09:45 Drug: NS 0.9% 1000 ml Route: IV; Rate: 1000 ml; Site: right antecubital; hb 09:45 Drug: morphine 4 mg Route: IVP; Site: right antecubital; hb 09:45 Drug: Zofran (Ondansetron) 4 mg Route: IVP; Site: right antecubital; hb Outcome: 11:10 Discharge ordered by . pm1 11:26 Discharged to home ambulatory. hb 11:26 Condition: stable 11:26 Discharge instructions given to patient, Instructed on discharge instructions, follow up and referral plans. medication usage, Demonstrated understanding of instructions, follow-up care, medications, Prescriptions given X 2. 11:27 Patient left the ED. hb Signatures: Dispatcher [employer] EDMS Makenzie Miller RN RN ss Issa Escobar, PETAR CHASER APPRENTICE pm1 Rhonda Parks RN RN hb Garcia, Rubi rg4 Gualberto Melendrez
--- NOTE | 2019-06-02 11:11 | EDPHYS ---
Physician Documentation [facility] Name: Anisha Navarro Age: 29 yrs Sex: Female : 1990 Arrival Date: 06/02/2019 Time: 08:56 Bed 17 Private MD: ED Physician Zaid Lee HPI: 06/01 09:25 This 29 yrs old Female presents to ER via Ambulatory with complaints of pm1 Diarrhea, Abdominal Pain. 09:25 The patient presents to the emergency department with vomiting, diarrhea, abdominal pm1 pain. 09:25 Onset: The symptoms/episode began/occurred 5 day(s) ago. Possible causes: sick pm1 contacts, by co-worker(s). The symptoms are aggravated by nothing. The symptoms are alleviated by nothing. Associated signs and symptoms: Pertinent negatives: constipation, dysuria, fever. Severity of symptoms: in the emergency department the symptoms are unchanged. Historical: - Allergies: 09:14 No Known Allergies; ss - Home Meds: :14 None [Active]; ss - PMHx: 09:14 Kidney stones; ss - PSHx: 09:14 Cholecystectomy; Carpal Tunnel Repair; ss - Immunization history:: Adult Immunizations up to date. - Social history:: Smoking status: Patient denies any tobacco usage or history of. ROS: 09:25 Constitutional: Negative for fever, chills, and weight loss, Cardiovascular: Negative pm1 for chest pain, palpitations, and edema, Respiratory: Negative for shortness of breath, cough, wheezing, and pleuritic chest pain. 09:25 Back: Negative for injury and pain, : Negative for injury, bleeding, discharge, and swelling, MS/Extremity: Negative for injury and deformity, Skin: Negative for injury, rash, and discoloration, Neuro: Negative for headache, weakness, numbness, tingling, and seizure. 09:25 Abdomen/GI: Positive for abdominal pain, nausea, vomiting, and diarrhea. Exam: 09:25 Constitutional: This is a well developed, well nourished patient who is awake, alert, pm1 and in no acute distress. Head/Face: Normocephalic, atraumatic. Neck: Trachea midline, no thyromegaly or masses palpated, and no cervical lymphadenopathy. Supple, full range of motion without nuchal rigidity, or vertebral point tenderness. No Meningismus. Chest/axilla: Normal chest wall appearance and motion. Nontender with no deformity. No lesions are appreciated. Cardiovascular: Regular rate and rhythm with a normal S1 and S2. No gallops, murmurs, or rubs. Normal PMI, no JVD. No pulse deficits. Respiratory: Lungs have equal breath sounds bilaterally, clear to auscultation and percussion. No rales, rhonchi or wheezes noted. No increased work of breathing, no retractions or nasal flaring. 09:25 Back: No spinal tenderness. No costovertebral tenderness. Full range of motion. Skin: Warm, dry with normal turgor. Normal color with no rashes, no lesions, and no evidence of cellulitis. MS/ Extremity: Pulses equal, no cyanosis. Neurovascular intact. Full, normal range of motion. 09:25 Abdomen/GI: Inspection: obese Bowel sounds: normal, Palpation: soft, in all quadrants, mild abdominal tenderness, in the right lower quadrant and left lower quadrant, mass, is not appreciated, rebound tenderness, is not appreciated. 09:25 Neuro: Orientation: is normal, Motor: is normal, moves all fours. Vital Signs: 09:11 BP 150 / 105; Pulse 94; Resp 16; Temp 98.0(TE); Pulse Ox 100% on R/A; Weight 106.59 kg; ss Height 5 ft. 2 in. (157.48 cm); Pain 10/10; 11:00 BP 146 / 86; Pulse 83; Resp 16; Pulse Ox 100% on R/A; hb 09:11 Body Mass Index 42.98 (106.59 kg, 157.48 cm) ss MDM: 09:23 Patient medically screened. pm1 11:09 Data reviewed: vital signs. Data interpreted: Pulse oximetry: on room air is 100 %. pm1 Interpretation: normal. Counseling: I had a detailed discussion with the patient and/or guardian regarding: the historical points, exam findings, and any diagnostic results supporting the discharge/admit diagnosis, lab results, radiology results, the need for outpatient follow up, to return to the emergency department if symptoms worsen or persist or if there are any questions or concerns that arise at home. 11:09 Special discussion: I discussed with the patient the need to follow-up with the pm1 PCP/specialist for the noted incidental finding on X-ray/CT scanning. 11:19 ED course: Discussed follow up with her PCP for further evaluation of lymph node in RLQ pm1 and recommended repeat follow up CT by radiologist. 11:21 ED course: Patient with borderline DM per her PCP, recommend she follow up to check pm1 hgba1c and treatment of hyperglycemia. 06/01 09:24 Order name: Basic Metabolic Panel; Complete Time: 10:28 pm1 06/01 09:24 Order name: CBC with Diff; Complete Time: 10:28 pm1 06/01 09:24 Order name: Creatinine for Radiology; Complete Time: 10:28 pm1 06/01 09:24 Order name: Hepatic Function; Complete Time: 10:28 pm1 06/01 09:24 Order name: Lipase; Complete Time: 10:28 pm1 06/01 09:52 Order name: Urine Dipstick--Ancillary (enter results); Complete Time: 10:28 bd 06/01 09:24 Order name: IV Saline Lock; Complete Time: 09:51 pm1 06/01 09:24 Order name: Labs collected and sent; Complete Time: 09:51 pm06/01 09:24 Order name: Urine Dipstick-Ancillary (obtain specimen); Complete Time: 09:51 pm1 06/01 09:24 Order name: CT Abd/Pelvis - IV Contrast Only; Complete Time: 11:03 pm1 06/01 09:52 Order name: Urine --Ancillary (enter results); Complete Time: 10:28 bd 06/01 09:24 Order name: Urine Test (obtain specimen); Complete Time: 09:51 pm1 Administered Medications: 09:45 Drug: NS 0.9% 1000 ml Route: IV; Rate: 1000 ml; Site: right antecubital; hb 09:45 Drug: morphine 4 mg Route: IVP; Site: right antecubital; hb 09:45 Drug: Zofran (Ondansetron) 4 mg Route: IVP; Site: right antecubital; hb Disposition: 11:55 Co-signature as Attending Physician, Zaid Lee MD. rn Disposition: 06/02/19 11:10 Discharged to Home. Impression: Unspecified abdominal pain, Diarrhea, unspecified, Vomiting. - Condition is Stable. - Discharge Instructions: Abdominal Pain, Adult, Diarrhea, Adult, Nausea and Vomiting, Adult, Viral Gastroenteritis, Adult. - Prescriptions for Bentyl 20 mg Oral Tablet - take 1 tablet by ORAL route every 6 hours As needed; 20 tablet. Zofran 4 mg Oral Tablet - take 1 tablet by ORAL route every 8 hours As needed; 20 tablet. - Work release form, Medication Reconciliation Form, Thank You Letter, Antibiotic Education, Prescription Opioid Use form. - Follow up: Emergency Department; When: As needed; Reason: Worsening of condition. Follow up: Private Physician; When: 2 - 3 days; Reason: Recheck today's complaints, Continuance of care, Re-evaluation by your physician. - Problem is new. - Symptoms have improved. Signatures: Dispatcher [employer] EDMS Zaid Lee MD MD rn Smirch, Shelby, RN RN ss Issa Escobar, PETAR TIER AND DETONATOR pm1 Rhonda Parks RN RN hb Corrections: (The following items were deleted from the chart) 11:13 11:10 06/02/2019 11:10 Discharged to Home. Impression: Unspecified abdominal pain; pm1 Diarrhea, unspecified. Condition is Stable. Forms are Medication Reconciliation Form, Thank You Letter, Antibiotic Education, Prescription Opioid Use. Follow up: Emergency Department; When: As needed; Reason: Worsening of condition. Follow up: Private Physician; When: 2 - 3 days; Reason: Recheck today's complaints, Continuance of care, Re-evaluation by your physician. Problem is new. Symptoms have improved. pm1 11:27 11:13 06/02/2019 11:10 Discharged to Home. Impression: Unspecified abdominal pain; hb Diarrhea, unspecified; Vomiting. Condition is Stable. Forms are Medication Reconciliation Form, Thank You Letter, Antibiotic Education, Prescription Opioid Use. Follow up: Emergency Department; When: As needed; Reason: Worsening of condition. Follow up: Private Physician; When: 2 - 3 days; Reason: Recheck today's complaints, Continuance of care, Re-evaluation by your physician. Problem is new. Symptoms have improved. pm1
[2019-06-02 11:39] VITALS: TEMP 98; O2SAT 100
[2019-06-02 11:41] VITALS: BP 146/86
== END 2019-06-02 11:27 | disposition home or self-care (01) ==
LOC: ER 08:54
DX: R10.9 Unspecified abdominal pain (principal); R19.7 Diarrhea, unspecified; R11.10 Vomiting, unspecified
CPT/HCPCS: 36415; 74177; 80048; 80076; 81003; 81025; 83690; 85025; 96374; 96375; 99284; J2405; J7030; Q9967

== ENCOUNTER 2019-08-25 05:18 | Emergency (ER) | payer SELFPAY ==
--- OUTSIDE RECORDS SUMMARY | 2019-08-25 05:20 | XMS REPORT ---
:1990 Author Organization [facility] t Address [address] [facility]. [address] [place] [address] Care Team Providers Name Role Phone Unavailable Unavailable Unavailable Problems This patient has no known problems. Allergies, Adverse Reactions, Alerts This patient has no known allergies or adverse reactions. Medications This patient has no known medications. Procedures This patient has no known procedures. Results This patient has no known results.
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
[2019-08-25 05:55] LABS: Absolute Lymphocytes (CBC) 2.5 K/uL (0.7-4.9); Basophils % 0.2 % (0-1.3); Lymphocytes % 25.8 % (15.3-44.8); MPV 8.5 fL (7.6-11.3); RBC Red Blood Cell Count 5.04 M/uL (3.86-4.86)
[2019-08-25 06:02] LABS: ALT/SGPT 53 U/L (12-78); AST/SGOT 21 U/L (15-37); Albumin 3.7 g/dL (3.4-5.0); Alkaline Phosphatase 179 U/L (45-117); BUN Blood Urea Nitrogen 9 mg/dL (7-18); Bicarbonate 24 mmol/L (21-32); Bilirubin Direct 0.1 mg/dL (0-0.2); Bilirubin Total 0.6 mg/dL (0.2-1.0); Glucose Level 211 mg/dL (74-106); Lipase 135 U/L (73-393); Potassium 3.9 mmol/L (3.5-5.1); Sodium Level 139 mmol/L (136-145)
[2019-08-25] MEDS ORDERED: METFORMIN HCL 500 MG TAB ONE (06:53)
[2019-08-25 07:24] LABS: Urine Blood 3+ (NEG); Urine Glucose TRACE (NEG); Urine Protein 3+ (NEG); Urine Specific Gravity >1.030 (1.005-1.030); Urine pH 6.5 (5.0-7.0)
--- NOTE | 2019-08-25 07:34 | RAD REPORT ---
EXAM DESCRIPTION: CT - Stone Protocol - 08/25/2019 7:05 am CLINICAL HISTORY: ABD PAIN COMPARISON: Abdomen Pelvis W Contrast dated 06/02/2019; Abdomen Pelvis W Contrast dated 10/03/2017 TECHNIQUE: Axial 5 mm thick images were obtained without oral or IV contrast. The uexoz-xk-ydik span s the entirety of the system including uppermost abdomen and lung bases. All CT scans are performed using dose optimization technique as appropriate and may include automated exposure control or mA/KV adjustment according to patient size. FINDINGS: No hydronephrosis is present and no obstructing ureteral calculi. No suspicious renal mass es. Isodense masses and pyelonephritis are not excluded on a stone protocol CT scan. Patient has a si ngle 2 millimeter calcification in the upper pole of the right kidney. No significant adrenal finding . Tightly contracted urinary bladder shows no gross abnormality. Uterus and ovaries show no suspicious findings. Imaged portions of the liver, spleen and pancreas show no suspicious findings on non-contrast imaging . Liver does demonstrate diffuse fatty infiltration. No gallbladder or biliary tree abnormality ident ified. No suspicious bowel findings. Appendix is normal. A few small mesenteric lymph nodes are present in the right lower quadrant. There is a 15 millimeter lymph node in the right pericolic gutter near the cecum. This is fractionally larger than the May xamination. This is much larger than the September 2017 study. This is most likely a reactive lymph node a nd the patient has an imaging occult enteritis. No free air, free fluid or inflammatory stranding. No significant bony abnormality. IMPRESSION: No obstructing calculi or other acute finding. Isodense masses and pyelonephritis are not excluded on stone protocol technique. No acute GI process evident. The patient does have small reactive type lymph nodes in the right lower quadrant including a 15 millimeter lymph node that is enlarged from prior imaging. No other mass or nodule identified. This single finding is most likely reactive. Follow-up can be obt ained as clinical findings were risk factors warrant.
[2019-08-25 08:05] VITALS: TEMP 98.2; O2SAT 100
[2019-08-25 08:07] VITALS: BP 133/87
--- NOTE | 2019-08-25 19:46 | ER ---
Nurse's Notes [facility] Name: Anisha Navarro Age: 29 yrs Sex: Female : 1990 Arrival Date: 08/25/2019 Time: 05:19 Bed 6 Private MD: Diagnosis: Generalized abdominal pain;Diabetes mellitus due to underlying condition with hyperglycemia;Essential (primary) hypertension;Fatty (change of) liver, not elsewhere classified Presentation: 08/24 05:26 Chief complaint: Patient states: i have abdominal pain and vomiting with constipation mg2 for almost a week. my pcp put me on protonix. Coronavirus screen: Proceed with normal triage. Patient denies a cough. Patient denies shortness of breath or difficulty breathing. Patient denies measured and/or subjective temperature greater than 100.4F prior to today's visit. Patient denies travel on a cruise ship or to a country the [facility] currently lists as an affected area. Patient denies contact with known and/or suspected case of COVID-19. Ebola Screen: No symptoms or risks identified at this time. Initial Sepsis Screen: Does the patient meet any 2 criteria? No. Patient's initial sepsis screen is negative. Does the patient have a suspected source of infection? No. Patient's initial sepsis screen is negative. Risk Assessment: Do you want to hurt yourself or someone else? Patient reports no desire to harm self or others. Onset of symptoms was July 2019. 05:26 Method Of Arrival: Ambulatory mg2 05:26 Acuity: NIKKI 3 mg2 Triage Assessment: 05:28 General: Appears uncomfortable, Behavior is calm, cooperative, appropriate for age. ea Pain: Complains of pain in suprapubic area, right lower quadrant and left lower quadrant. GI: Reports lower abdominal pain. 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 - Social history:: Smoking status: Patient denies any tobacco usage or history of. Patient/guardian denies using alcohol, street drugs, IV drugs, Smoking status: Patient denies any tobacco usage or history of. Screenin:27 Abuse screen: Denies threats or abuse. Nutritional screening: No deficits noted. ea Tuberculosis screening: No symptoms or risk factors identified. Fall Risk IV access (20 points). Assessment: 05:30 General: see triage assessment. mg2 05:30 GI: Bowel sounds Abd is soft. mg2 07:00 Reassessment: Patient appears in no apparent distress at this time. No changes from jl7 previously documented assessment. Patient and/or family updated on plan of care and expected duration. Pain level reassessed. Patient is alert, oriented x 3, equal unlabored respirations, skin warm/dry/pink. Vital Signs: 05:26 BP 152 / 104; Pulse 87; Resp 18; Temp 98.2; Pulse Ox 100% on R/A; Weight 106.59 kg; mg2 Height 5 ft. 1 in. (154.94 cm); Pain 10/10; 07:00 BP 133 / 87; Pulse 78; Resp 15; Pulse Ox 100% ; jl7 05:26 Body Mass Index 44.40 (106.59 kg, 154.94 cm) mg2 ED Course: 05:19 Patient arrived in ED. ds1 05:27 Christine Garnett, RN is Primary Nurse. ea 05:28 Triage completed. mg2 05:28 Patient has correct armband on for positive identification. Placed in gown. Bed in low ea position. Call light in reach. Side rails up X 1. 05:28 Arm band placed on right wrist. Patient placed in an exam room, on a stretcher, on ea pulse oximetry. 05:30 No provider procedures requiring assistance completed. mg2 05:37 Inserted saline lock: 20 gauge in right antecubital area, using aseptic technique. ea Blood collected. 06:14 Chiquita Cabrera FNP-C is [facility]. snw 06:14 Wilbert Worthington MD is Attending Physician. snw 07:05 CT Stone Protocol In Process Unspecified. EDMS 07:54 IV discontinued, intact, bleeding controlled, No redness/swelling at site. Pressure jl7 dressing applied. Administered Medications: 07:00 Drug: metFORMIN 500 mg Route: PO; jl7 07:54 Follow up: Response: No adverse reaction jl7 Outcome: 07:39 Discharge ordered by . snw 07:54 Discharged to home ambulatory. jl7 07:54 Condition: stable 07:54 Discharge instructions given to patient, Instructed on discharge instructions, follow up and referral plans. medication usage, Demonstrated understanding of instructions, follow-up care, medications, Prescriptions given X 1. 07:55 Patient left the ED. jl7 Signatures: Dispatcher [employer] EDMS Chiquita Cabrera, APPRAISAL COORDINATOR-C APPRAISAL COORDINATOR-Csnw Annabelle Dennis ds1 Kassandra Bell RN RN jl7 Christine Garnett RN RN ea Gardose, Michele RN BERNIE mg2
--- NOTE | 2019-08-25 19:47 | EDPHYS ---
Physician Documentation [facility] Name: Anisha Navarro Age: 29 yrs Sex: Female : 1990 Arrival Date: 08/25/2019 Time: 05:19 Bed 6 Private MD: XIN Physician Wilbert Worthington HPI: 08/24 06:31 This 29 yrs old Female presents to ER via Ambulatory with complaints of snw Abdominal Pain, Vomiting. 06:31 The patient presents with abdominal pain that is diffuse, abdominal distention that is snw diffuse. Onset: The symptoms/episode began/occurred suddenly, 1 week(s) ago, and became persistent. The symptoms do not radiate. Associated signs and symptoms: Pertinent positives: vomiting. The symptoms are described as steady, vague. Modifying factors: The symptoms are alleviated by nothing. Severity of pain: At its worst the pain was moderate severe. The patient has experienced similar episodes in the past, chronically, and the symptoms today are exactly the same. The patient has not recently seen a physician. 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 - Social history:: Smoking status: Patient denies any tobacco usage or history of. Patient/guardian denies using alcohol, street drugs, IV drugs, Smoking status: Patient denies any tobacco usage or history of. ROS: 06:31 Constitutional: Negative for fever, chills, and weight loss, Eyes: Negative for injury, snw pain, redness, and discharge, ENT: Negative for injury, pain, and discharge, Neck: Negative for injury, pain, and swelling, Cardiovascular: Negative for chest pain, palpitations, and edema, Respiratory: Negative for shortness of breath, cough, wheezing, and pleuritic chest pain, Back: Negative for injury and pain, : Negative for injury, bleeding, discharge, and swelling, MS/Extremity: Negative for injury and deformity, Skin: Negative for injury, rash, and discoloration, Neuro: Negative for headache, weakness, numbness, tingling, and seizure, Psych: Negative for depression, anxiety, suicide ideation, homicidal ideation, and hallucinations. 06:31 Abdomen/GI: Positive for abdominal pain, nausea and vomiting, constipation, intermittently but persistently x 2 years, pt has not seen any PCP, specialty with this c/o. Exam: 06:31 Constitutional: This is a well developed, well nourished patient who is awake, alert, snw and in no acute distress. Head/Face: Normocephalic, atraumatic. Eyes: Pupils equal round and reactive to light, extra-ocular motions intact. Lids and lashes normal. Conjunctiva and sclera are non-icteric and not injected. Cornea within normal limits. Periorbital areas with no swelling, redness, or edema. ENT: Nares patent. No nasal discharge, no septal abnormalities noted. Tympanic membranes are normal and external auditory canals are clear. Oropharynx with no redness, swelling, or masses, exudates, or evidence of obstruction, uvula midline. Mucous membranes moist. Neck: Trachea midline, no thyromegaly or masses palpated, and no cervical lymphadenopathy. Supple, full range of motion without nuchal rigidity, or vertebral point tenderness. No Meningismus. Chest/axilla: Normal chest wall appearance and motion. Nontender with no deformity. No lesions are appreciated. Cardiovascular: Regular rate and rhythm with a normal S1 and S2. No gallops, murmurs, or rubs. Normal PMI, no JVD. No pulse deficits. Respiratory: Lungs have equal breath sounds bilaterally, clear to auscultation and percussion. No rales, rhonchi or wheezes noted. No increased work of breathing, no retractions or nasal flaring. Back: No spinal tenderness. No costovertebral tenderness. Full range of motion. Skin: Warm, dry with normal turgor. Normal color with no rashes, no lesions, and no evidence of cellulitis. MS/ Extremity: Pulses equal, no cyanosis. Neurovascular intact. Full, normal range of motion. Neuro: Awake and alert, GCS 15, oriented to person, place, time, and situation. Cranial nerves II-XII grossly intact. Motor strength 5/5 in all extremities. Sensory grossly intact. Cerebellar exam normal. Normal gait. Psych: Awake, alert, with orientation to person, place and time. Behavior, mood, and affect are within normal limits. 06:31 Abdomen/GI: Inspection: abdomen appears normal, obese Bowel sounds: normal, Palpation: moderate abdominal tenderness, in the left upper quadrant and left lower quadrant. Vital Signs: 05:26 BP 152 / 104; Pulse 87; Resp 18; Temp 98.2; Pulse Ox 100% on R/A; Weight 106.59 kg; mg2 Height 5 ft. 1 in. (154.94 cm); Pain 10/10; 07:00 BP 133 / 87; Pulse 78; Resp 15; Pulse Ox 100% ; jl7 05:26 Body Mass Index 44.40 (106.59 kg, 154.94 cm) mg2 MDM: 06:22 Patient medically screened. snw 07:41 Data reviewed: vital signs, nurses notes. Data interpreted: Pulse oximetry: on room air snw is 100 %. Interpretation: normal. Counseling: I had a detailed discussion with the patient and/or guardian regarding: the historical points, exam findings, and any diagnostic results supporting the discharge/admit diagnosis, lab results, radiology results, the need for outpatient follow up, to return to the emergency department if symptoms worsen or persist or if there are any questions or concerns that arise at home. Response to treatment: the patient's symptoms have mildly improved after treatment. Special discussion: Based on the patient's Hx, exam, and Dx evaluation, there is no indication for emergent surgery or inpatient Tx. It is understood by the patient/guardian that if the Sx's persist or worsen they need to return immediately for re-evaluation. I have referred the patient to see his PCP for further evaluation of high blood pressure. Based on the history and exam findings, there is no indication for further emergent testing or inpatient evaluation. I discussed with the patient/guardian the need to see the basting machine operator for further evaluation of the symptoms. I discussed with the patient/guardian the need to see the primary care provider for further evaluation of the symptoms. 08/24 05:26 Order name: Basic Metabolic Panel; Complete Time: 06:14 mg2 08/24 05:26 Order name: CBC with Diff; Complete Time: 06:14 mg2 08/24 05:26 Order name: Hepatic Function; Complete Time: 06:14 mg2 08/24 05:26 Order name: Lipase; Complete Time: 06:14 mg2 08/24 06:34 Order name: Urine Dipstick--Ancillary (enter results); Complete Time: 07:33 sg 08/24 06:34 Order name: Urine --Ancillary (enter results); Complete Time: 07:33 sg 08/24 05:26 Order name: IV Saline Lock; Complete Time: 05:31 mg2 08/24 05:26 Order name: Labs collected and sent; Complete Time: 05:31 mg2 08/24 06:15 Order name: CT Stone Protocol; Complete Time: 07:37 snw 06 06:34 Order name: Urine Dipstick-Ancillary (obtain specimen); Complete Time: 06:35 sg 08/24 06:34 Order name: Urine Test (obtain specimen); Complete Time: 06:35 sg Administered Medications: 07:00 Drug: metFORMIN 500 mg Route: PO; jl7 07:54 Follow up: Response: No adverse reaction jl7 Disposition: 15:20 Co-signature as Attending Physician, Wilbert Worthington MD I agree with the assessment and uvaldo plan of care. Disposition: 08/25/19 07:39 Discharged to Home. Impression: Generalized abdominal pain, Diabetes mellitus due to underlying condition with hyperglycemia, Essential (primary) hypertension, Fatty (change of) liver, not elsewhere classified. - Condition is Stable. - Discharge Instructions: Abdominal Pain, Adult, Diabetes and Sick Day Management, Hypertension, Heart Disease Prevention, Form - Daily Diabetes Record, Blood Glucose Monitoring, Adult, Diabetes and Exercise, Rehydration, Adult, Form - Blood Pressure Record Sheet, Nonalcoholic Fatty Liver Disease Diet. - Prescriptions for Glucophage 500 mg Oral Tablet - take 1 tablet by ORAL route every 12 hours; 20 tablet. - Work release form, Medication Reconciliation Form, Thank You Letter, Antibiotic Education, Prescription Opioid Use form. - Follow up: Emergency Department; When: As needed; Reason: Worsening of condition. Follow up: Private Physician; When: 2 - 3 days; Reason: Recheck today's complaints, Continuance of care, Re-evaluation by your physician. Signatures: Dispatcher [employer] Kvng Gannon RN RN sg Anderson, Corey, MD MD cha Therrien, Shelly, DREDGE DECKHAND-C DREDGE DECKHAND-Csnw Kassandra Bell RN RN jl7 Christine Garnett RN RN ea Gardose, Michele RN BERNIE mg2 Corrections: (The following items were deleted from the chart) 07:55 07:39 08/25/2019 07:39 Discharged to Home. Impression: Generalized abdominal pain; jl7 Diabetes mellitus due to underlying condition with hyperglycemia; Essential (primary) hypertension; Fatty (change of) liver, not elsewhere classified. Condition is Stable. Forms are Medication Reconciliation Form, Thank You Letter, Antibiotic Education, Prescription Opioid Use. Follow up: Emergency Department; When: As needed; Reason: Worsening of condition. Follow up: Private Physician; When: 2 - 3 days; Reason: Recheck today's complaints, Continuance of care, Re-evaluation by your physician. snw
== END 2019-08-25 07:55 | disposition home or self-care (01) ==
LOC: ER 05:18
DX: E11.65 Type 2 diabetes mellitus with hyperglycemia (principal); I10 Essential (primary) hypertension; K76.0 Fatty (change of) liver, not elsewhere classified; Z87.442 Personal history of urinary calculi
CPT/HCPCS: 36415; 74176; 76377; 80048; 80076; 81003; 81025; 83690; 85025; 99284

== ENCOUNTER 2019-09-14 08:22 | Emergency (ER) | payer SELFPAY ==
--- OUTSIDE RECORDS SUMMARY | 2019-09-14 08:24 | XMS REPORT | Continuity of Care Document ---
:1990 Author Organization [facility] t Address [address] [place] [address] Care Team Providers Name Role Phone Unavailable Unavailable Unavailable Problems This patient has no known problems. Allergies, Adverse Reactions, Alerts This patient has no known allergies or adverse reactions. Social History Smoking Status Start Date Stop Date Source Never Smoker [facility] Medications Ordered Filled Start Stop Current Ordering Indication Dosage Frequency Signature Comments Components Source Medication Medication Date Date Medication? Clinician (SIG) Name Name Carafate 1 Carafate 1 No 1 QID Carafate 1 [place] gram tablet gram tablet gram d a Take 1 Take 1 tablet Medical tablet 4 tablet 4 Take 1 Group times a day times a day tablet 4 by oral by oral times a route for route for day by 30 days. 30 days. oral route for 30 days. metoclopram metoclopram No 1 QID metoclopra [place] jaida 10 mg jaida 10 mg mide 10 mg da tablet Take tablet Take tablet Medical 1 tablet 4 1 tablet 4 Take 1 G roup times a day times a day tablet 4 by oral by oral times a route. route. day by oral route. omeprazole omeprazole No 1capsul Q1D omeprazole [place] 40 mg 40 mg e(s) 40 mg da capsule,del capsule,del capsule,de Medical ayed ayed layed Group release release release Take 1 Take 1 Take 1 capsule capsule capsule every day every day every day by oral by oral by oral route at route at route at bedtime for bedtime for bedtime 30 days. 30 days. for 30 days. Vital Signs Vital Name Observation Time Observation Value Comments Source BP Diastolic 2019-09-10 00:00:00 101 mm[facility]Hg] [facility] Height 2019-09-10 00:00:00 62 [in_i] [facility] BMI (Body Mass 2019-09-10 00:00:00 43.2 kg/m2 [facility] Medical Index) Group BP Systolic 2019-09-10 00:00:00 143 mm[Hg] [facility] Body Weight 2019-09-10 00:00:00 3776 [oz_av] [facility] Procedures Procedure Date / Time Performed Performing Clinician Sour e Carpal Tunnel Surgery [facility] Cholecystectomy [facility] Plan of Care Planned Activity Planned Date Details Comments Source Diagnostic Test 2019-09-10 H pylori Ab, serum [facility] Pending 00:00:00 [code = H pylori Ab, Group serum] Diagnostic Test 2019-09-10 hemoglobin A1c, QN[facility] [place] [facility]:00 blood [code = Group hemoglobin A1c, QN, blood] Future Appointment 2019-10-07 Jamey Gomes, [address] [facility] 16:30:00 [facility] [address]; , [place] [address] Future Appointment 2019-09-23 Luis Ramya, [address] [facility] 13:30:00 [facility] [address]; , [place] [address] Encounters Start End Encounter Admission Attending Care Care Encounter Source Date/Time Date/Time Type Type Clinicians Facility Department ID 2019-09-10 2019-09-10 Jamey CHANG [place] - [id number] [facility] 00:00:00 00:00:00 You Nguyen Medical Medical MD: [address] [facility] [address], [place] [address] , Ph. Results This patient has no known results.
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
[2019-09-14] MEDS ORDERED: PANTOPRAZOLE 40MG TABLET PO ONE (09:05)
[2019-09-14] MEDS ORDERED: LIDOCAINE VISCOUS 2% SOLN 15 ML UDC ONE (09:05)
[2019-09-14] MEDS ORDERED: MAGNE/ALUM HYDROXD 30 ML UCUP ONE (09:05)
--- NOTE | 2019-09-14 11:01 | EDPHYS ---
Physician Documentation [facility] Name: Anisha Navarro Age: 29 yrs Sex: Female : 1990 Arrival Date: 09/14/2019 Time: 08:26 Bed 8 Private MD: ED Physician Russ Ayon HPI: 09/13 09:35 This 29 yrs old Female presents to ER via Ambulatory with complaints of Chest snw Pain. 09:35 The patient or guardian reports chest pain that is located primarily in the substernal snw area. The pain does not radiate. Associated signs and symptoms: The patient has no apparent associated signs or symptoms. The chest pain is described as sharp. Duration: The patient or guardian reports a single episode. Modifying factors: The symptoms are alleviated by nothing. the symptoms are aggravated by nothing. Severity of pain: At its worst the pain was moderate severe in the emergency department the pain is unchanged. pt states she saw her PCP on Sun. Given Carafate. Pain intensified. She was seen and cardiac eval performed on at [facility]. Pt here today with same pain. No trauma, no vomiting, no gallbladder. No previous pain like this. . 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 - Social history:: Smoking status: Patient denies any tobacco usage or history of. ROS: 09:28 Constitutional: Negative for fever, chills, and weight loss, Eyes: Negative for injury, snw pain, redness, and discharge, ENT: Negative for injury, pain, and discharge, Neck: Negative for injury, pain, and swelling, Respiratory: Negative for shortness of breath, cough, wheezing, and pleuritic chest pain, Abdomen/GI: Negative for abdominal pain, nausea, vomiting, diarrhea, and constipation, Back: Negative for injury and pain, : Negative for injury, bleeding, discharge, and swelling, MS/Extremity: Negative for injury and deformity, Skin: Negative for injury, rash, and discoloration, Neuro: Negative for headache, weakness, numbness, tingling, and seizure, Psych: Negative for depression, anxiety, suicide ideation, homicidal ideation, and hallucinations. 09:28 Cardiovascular: Positive for chest pain, of the mid-sternal area. Exam: 08:50 Head/Face: Normocephalic, atraumatic. Eyes: Pupils equal round and reactive to light, snw extra-ocular motions intact. Lids and lashes normal. Conjunctiva and sclera are non-icteric and not injected. Cornea within normal limits. Periorbital areas with no swelling, redness, or edema. ENT: Nares patent. No nasal discharge, no septal abnormalities noted. Tympanic membranes are normal and external auditory canals are clear. Oropharynx with no redness, swelling, or masses, exudates, or evidence of obstruction, uvula midline. Mucous membranes moist. Neck: Trachea midline, no thyromegaly or masses palpated, and no cervical lymphadenopathy. Supple, full range of motion without nuchal rigidity, or vertebral point tenderness. No Meningismus. Chest/axilla: Normal chest wall appearance and motion. Nontender with no deformity. No lesions are appreciated. Back: No spinal tenderness. No costovertebral tenderness. Full range of motion. Skin: Warm, dry with normal turgor. Normal color with no rashes, no lesions, and no evidence of cellulitis. MS/ Extremity: Pulses equal, no cyanosis. Neurovascular intact. Full, normal range of motion. Neuro: Awake and alert, GCS 15, oriented to person, place, time, and situation. Cranial nerves II-XII grossly intact. Motor strength 5/5 in all extremities. Sensory grossly intact. Cerebellar exam normal. Normal gait. Psych: Awake, alert, with orientation to person, place and time. Behavior, mood, and affect are within normal limits. 08:50 Constitutional: The patient appears alert, awake, obese. 09:15 ECG was reviewed by the Attending Physician. snw 09:31 Respiratory: Lungs have equal breath sounds bilaterally, clear to auscultation and snw percussion. No rales, rhonchi or wheezes noted. No increased work of breathing, no retractions or nasal flaring. Abdomen/GI: Soft, non-tender, with normal bowel sounds. No distension or tympany. No guarding or rebound. No evidence of tenderness throughout. 09:31 Cardiovascular: Rate: normal, Rhythm: regular, Pulses: no pulse deficits are appreciated, Heart sounds: normal. Vital Signs: 08:40 BP 138 / 98; Pulse 92; Resp 18; Temp 98.0; Pulse Ox 97% on R/A; Weight 107.05 kg; ph Height 5 ft. 2 in. (157.48 cm); Pain 10/10; 09:27 BP 149 / 95; Pulse 71; Resp 18; Pulse Ox 98% ; sv 10:25 BP 134 / 95; Pulse 84; Resp 18; Pulse Ox 100% ; sv 11:19 Temp 97.9; ph 08:40 Body Mass Index 43.16 (107.05 kg, 157.48 cm) ph MDM: 08:34 Patient medically screened. snw 11:01 Data reviewed: vital signs, nurses notes. Counseling: I had a detailed discussion with snw the patient and/or guardian regarding: the historical points, exam findings, and any diagnostic results supporting the discharge/admit diagnosis, the presence of at least one elevated blood pressure reading (>120/80) during this emergency department visit, the need for outpatient follow up, to return to the emergency department if symptoms worsen or persist or if there are any questions or concerns that arise at home. Special discussion: I have referred the patient to see his PCP for further evaluation of high blood pressure. Based on the history and exam findings, there is no indication for further emergent testing or inpatient evaluation. I discussed with the patient/guardian the need to see the transportation maintenance worker for further evaluation of the symptoms. I discussed with the patient/guardian the need to see the primary care provider for further evaluation of the symptoms. 09/13 08:43 Order name: EKG - Nurse/Tech; Complete Time: 08:43 mh5 EC:50 Rate is 79 beats/min. Rhythm is regular. QRS [place] is Normal. RI interval is normal. QRS snw interval is normal. QT interval is normal. No Q waves. T waves are Normal. No ST changes noted. Clinical impression: Normal ECG. Administered Medications: 09:22 Drug: GI Cocktail without - (Maalox Suspension 30 ml, Lidocaine Liquid 2 % 15 ph ml) Route: PO; 11:17 Follow up: Response: No adverse reaction ph 09:23 Not Given (Patient Refused; States, " I t makes my symptoms worse, that's why I quit ph taking it"): ProTONIX 40 mg PO once Disposition: 13:17 Co-signature as Attending Physician, Russ Ayon MD. ma2 Disposition: 09/14/19 10:59 Discharged to Home. Impression: Esophagitis. - Condition is Stable. - Discharge Instructions: Esophagitis, Upper Endoscopy, Upper Endoscopy, Care After. - Prescriptions for Levsin 0.125 mg Oral Tablet - take 1 tablet by ORAL route every 8 hours; 30 tablet. - Work release form, Medication Reconciliation Form, Thank You Letter, Antibiotic Education, Prescription Opioid Use form. - Follow up: Emergency Department; When: As needed; Reason: Worsening of condition. Follow up: Private Physician; When: 2 - 3 days; Reason: Recheck today's complaints, Continuance of care, Re-evaluation by your physician. Signatures: Emily Silverio RN RN sv Therrien, Shelly, EQUIPMENT APPLICATION SPECIALIST-C EQUIPMENT APPLICATION SPECIALIST-Csnw Lori Segura RN RN ph Martinez, Maria [facility] Russ Ayon MD MD ma2 Corrections: (The following items were deleted from the chart) 09:32 08:50 Head/Face: Normocephalic, atraumatic. Eyes: Pupils equal round and reactive to snw light, extra-ocular motions intact. Lids and lashes normal. Conjunctiva and sclera are non-icteric and not injected. Cornea within normal limits. Periorbital areas with no swelling, redness, or edema. ENT: Nares patent. No nasal discharge, no septal abnormalities noted. Tympanic membranes are normal and external auditory canals are clear. Oropharynx with no redness, swelling, or masses, exudates, or evidence of obstruction, uvula midline. Mucous membranes moist. Neck: Trachea midline, no thyromegaly or masses palpated, and no cervical lymphadenopathy. Supple, full range of motion without nuchal rigidity, or vertebral point tenderness. No Meningismus. Chest/axilla: Normal chest wall appearance and motion. Nontender with no deformity. No lesions are appreciated. Back: No spinal tenderness. No costovertebral tenderness. Full range of motion. Skin: Warm, dry with normal turgor. Normal color with no rashes, no lesions, and no evidence of cellulitis. MS/ Extremity: Pulses equal, no cyanosis. Neurovascular intact. Full, normal range of motion. Neuro: Awake and alert, GCS 15, oriented to person, place, time, and situation. Cranial nerves II-XII grossly intact. Motor strength 5/5 in all extremities. Sensory grossly intact. Cerebellar exam normal. Normal gait. Psych: Awake, alert, with orientation to person, place and time. Behavior, mood, and affect are within normal limits. snw 11:17 10:59 09/14/2019 10:59 Discharged to Home. Impression: Esophagitis. Condition is sv Stable. Forms are Medication Reconciliation Form, Thank You Letter, Antibiotic Education, Prescription Opioid Use. Follow up: Emergency Department; When: As needed; Reason: Worsening of condition. Follow up: Private Physician; When: 2 - 3 days; Reason: Recheck today's complaints, Continuance of care, Re-evaluation by your physician. snw
--- NOTE | 2019-09-14 11:01 | ER ---
Nurse's Notes [facility] Name: Anisha Navarro Age: 29 yrs Sex: Female : 1990 Arrival Date: 09/14/2019 Time: 08:26 Bed 8 Private MD: Diagnosis: Esophagitis Presentation: 09/13 08:28 Risk Assessment: Do you want to hurt yourself or someone else? Patient reports no ph desire to harm self or others. 08:40 Chief complaint: Patient states: Mid-sternal chest pain that radiates to L chest since ph , describes as sharp and tight, worse w/ movement and breathing, also reports N/V, states, "That has been going on for a while though, I was taking Protonix and they switched me to Carafate, I went to [place] for the chest pain on and they didn't find anything, they said it could be from my medicine.". Coronavirus screen: Patient denies a cough. Patient denies shortness of breath or difficulty breathing. Patient denies measured and/or subjective temperature greater than 100.4F prior to today's visit. Patient denies travel on a cruise ship or to a country the [facility] currently lists as an affected area. Patient denies contact with known and/or suspected case of COVID-19. Ebola Screen: No symptoms or risks identified at this time. Initial Sepsis Screen: Does the patient meet any 2 criteria? No. Patient's initial sepsis screen is negative. Does the patient have a suspected source of infection? No. Patient's initial sepsis screen is negative. Onset of symptoms was September 14, 2019. 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 - Social history:: Smoking status: Patient denies any tobacco usage or history of. Screenin:29 Abuse screen: Denies threats or abuse. Denies injuries from another. Nutritional ph screening: No deficits noted. Tuberculosis screening: No symptoms or risk factors identified. Fall Risk None identified. Assessment: 08:39 General: Appears in no apparent distress. comfortable, obese, well groomed. ph 08:43 Pain: Complains of pain in mid-sternal area Pain radiates to anterior aspect of left ph upper chest Quality of pain is described as sharp, Pain began 3 days ago. Neuro: Level of Consciousness is awake, alert, obeys commands, Oriented to person, place, time, situation. Cardiovascular: Reports chest pain, nausea, shortness of breath, Capillary refill < 3 seconds in bilateral fingers Patient's skin is warm and dry. Rhythm is sinus rhythm Chest pain quality is sharp, is located in substernal area radiates to left began 3 days ago is aggravated by breathing, movement. Respiratory: Airway is patent Respiratory effort is even, unlabored, Respiratory pattern is regular, symmetrical. GI: Abdomen is round non-distended, Reports nausea, vomiting. Derm: Skin is intact, is healthy with good turgor, Skin is pink, warm \\T\\ dry. Musculoskeletal: Circulation, motion, and sensation intact. Range of motion: intact in all extremities. 10:00 Reassessment: Patient appears in no apparent distress at this time. Patient and/or ph family updated on plan of care and expected duration. Pain level reassessed. Patient is alert, oriented x 3, equal unlabored respirations, skin warm/dry/pink. Vital Signs: 08:40 BP 138 / 98; Pulse 92; Resp 18; Temp 98.0; Pulse Ox 97% on R/A; Weight 107.05 kg; ph Height 5 ft. 2 in. (157.48 cm); Pain 10/10; 09:27 BP 149 / 95; Pulse 71; Resp 18; Pulse Ox 98% ; sv 10:25 BP 134 / 95; Pulse 84; Resp 18; Pulse Ox 100% ; sv 11:19 Temp 97.9; ph 08:40 Body Mass Index 43.16 (107.05 kg, 157.48 cm) ph ED Course: 08:26 Patient arrived in ED. em1 08:27 Lori Segura, RN is Primary Nurse. ph 08:28 Arm band placed on Patient placed in an exam room, on a stretcher, on flatwork catcher, ph on pulse oximetry. 08:29 Patient has correct armband on for positive identification. Placed in gown. Bed in low ph position. Call light in reach. Side rails up X 1. tool chaser on. Pulse ox on. NIBP on. Door closed. Noise minimized. Warm blanket given. Head of bed elevated. 08:34 Chiquita Cabrera FNP-C is [facility]. sn 08:34 Russ Ayon MD is Attending Physician. sn 08:41 EKG done, by ED staff, reviewed by Chiquita SOUZA. [facility] 08:43 Triage completed. ph 11:15 No provider procedures requiring assistance completed. Patient did not have IV access ph during this emergency room visit. Administered Medications: 09:22 Drug: GI Cocktail without - (Maalox Suspension 30 ml, Lidocaine Liquid 2 % 15 ph ml) Route: PO; 11:17 Follow up: Response: No adverse reaction ph 09:23 Not Given (Patient Refused; States, " I t makes my symptoms worse, that's why I quit ph taking it"): ProTONIX 40 mg PO once Outcome: 10:59 Discharge ordered by . snw 11:17 Patient left the ED. sv 11:17 Discharged to home ambulatory. ph 11:17 Condition: good 11:17 Discharge instructions given to patient, Instructed on discharge instructions, follow up and referral plans. medication usage, Demonstrated understanding of instructions, follow-up care, medications, Prescriptions given X 1. Signatures: Emily Silverio, RN RN Chiquita Eller FNP-C FNP-Csnw Martinez, Eric 1 Lori Segura RN RN ph Martinez, Maria [facility]
[2019-09-14 11:27] VITALS: TEMP 98
[2019-09-14 11:29] VITALS: BP 134/95; O2SAT 100
== END 2019-09-14 11:17 | disposition home or self-care (01) ==
LOC: ER 08:22
DX: K20.9 Esophagitis, unspecified (principal); Z87.442 Personal history of urinary calculi
CPT/HCPCS: 93005; 99284

== ENCOUNTER 2024-01-18 10:11 | Emergency (ER) | payer SELFPAY ==
--- OUTSIDE RECORDS SUMMARY | 2024-01-18 10:14 | XMS REPORT | Continuity of Care Document ---
Author Name Unknown Address [address] [facility] [address]. [address] [place] [address] [facility] Address [address] [facility] [address] [place] [address] Support Name Relationship Address Phone MD RAMAN HARGROVE Emergency Provider [address] [place] [address] VIKKI GRANT Primary Care Physician [address] [place] [address] SYLVESTER CABEZAS Next of Kin [address] [place] [address] MD ALFREDO YANES Emergency Provider [address] [place] [address] MD BLANKA CARRERA Primary Care Physician [address] [place] [address] MD HANNAH DEY Emergency Provider [address] [place] [address] MD KATIE DICKSON Emergency Provider [address] [place] [address] MD LOLY BARAJAS Emergency Provider [address] [place] [address] MD NOEL FLORES Emergency Provider [address] [place] [address] MD ADAM SILVA Emergency Provider [address] [place] [address] MD Bernadette Belcher Emergency Provider [address] [place] [address] JADA SR Family Member [address] [place] [address] NAZARIO CABEZAS Guarantor [address] [place] [address] MD JESUS LI Emergency Provider [address] [place] [address] SYLVESTER CABEZAS Next of Kin [address] [place] [address] JADA SR Family Member [address] [place] [address] Care Team Providers Care Erp Implementation Consultant Name Role Phone JESUS LI Attending Clinician Unavailab BERNADETTE Conrad Attending Clinician Unavailab ROMARIO Palacios Attending Clinician Unavailab julius HERNANDEZ Attending Clinician Unavailable GERBER CORREIA Attending Clinician Unavailable ROSANGELA SUERO Attending Clinician UnavailADAM Jaimes Attending Clinician Unavailable NOEL FLORES Attending Clinician Unavailable LISA GIBBS Attending Clinician Unavailable Koudela_A Attending Clinician Unavailable Zuniga_F Attending Clinician Unavailable LOLY BARAJAS Attending Clinician Unavailab KATIE Doran Attending Clinician Unavailable BLANKA CARRERA Attending Clinician Unavailab HANNAH Rodriguez Attending Clinician Unavailable CHANO HENRY Attending Clinician UnavailRAMAN Braga Attending Clinician Unavail able ALFREDO YANES Attending Clinician Unavailable VITALY ROCHA Attending Clinician UnavailBARAK raymundo BA Attending Clinician Unavailable TOÑO FOSTER Attending Clinician Unavailab ALEXIA Hess Attending Clinician Unavailable OLIVIA PABLO Attending Clinician Unavailable DALTON KUMARI Attending Clinician Unavailable SUNNY ARCE Attending Clinician Unavailable NITA TORO Attending Clinician Unavailfreya HERNANDEZ Admitting Clinician Unavailable Koudela_A Admitting Clinician Unavailable Zuniga_F Admitting Clinician Unavailable Payers Payer Name Policy Type Policy Number Effective Date Expirati on Date Source [place] [facility] [place]MEDICAID[place] [id number] 2021 00:00:00 [place] FOR[place] [facility] [id number] [place] [id number] Problems Condition Name Condition Details Condition Category Status Onset Date Resolution Date Last Treatment Date Treating Clinician Comments Source Type 2 diabetes mellitus Type 2 Diabetes Mellitus Problem Active 2019-03 00:00: 00 [facility] Essential hypertensi on Essential Hypertensi on Problem Active 2019-03 00:00: 00 [facility] Acid reflux Acid Reflux Problem Active 2019-03 00:00: 00 [facility] Gastritis Gastritis Problem Active 2019-03 00:00: 00 [facility] Allergies, Adverse Reactions, Alerts Allergy Name Allergy Type Status Severity Reaction(s) Onset Date Inactive Date Treating Clinician Comments Source Benzonat ate Allergy to substanc e [facility] Bactrim Allergy to substanc e Active [facility] Tessalon Perles Allergy to substanc e Active Chest pain [facility] Social History Smoking Status Start Date Stop Date Source Former Smoker [facility] Never Smoker [facility] Medications Ordered Medication Name Filled Medication Name Start Date Stop Date Current Medication? Ordering Clinician Indication Dosage Frequency Signature (SIG) Comments Components Source lisinopril lisinopril No [facility]isinopril [facility] metformin 500 mg tablet Take 1 tablet twice a day by oral route. metformin 500 mg tablet Take 1 tablet twice a day by oral route. No 1 BID metformin 500 mg tablet Take 1 tablet twice a day by oral route. [facility] lisinopril 20 mg tablet TAKE 1 TABLET EVERY DAY BY ORAL ROUTE FOR 90 DAYS. NEEDS FOLLOW UP lisinopril 20 mg tablet TAKE 1 TABLET EVERY DAY BY ORAL ROUTE FOR 90 DAYS. NEEDS FOLLOW UP No lisinopril 20 mg tablet TAKE 1 TABLET EVERY DAY BY ORAL ROUTE FOR 90 DAYS. NEEDS FOLLOW UP [facility] metformin 500 mg tablet TAKE 1 TABLET BY MOUTH TWICE DAILY metformin 500 mg tablet TAKE 1 TABLET BY MOUTH TWICE DAILY No metformin 500 mg tablet TAKE 1 TABLET BY MOUTH TWICE DAILY [facility] lisinopril 20 mg tablet Take 1 tablet every day by oral route for 90 days. lisinopril 20 mg tablet Take 1 tablet every day by oral route for 90 days. No 1 Q1D lisinopril 20 mg tablet Take 1 tablet every day by oral route for 90 days. [facility] metformin 500 mg tablet Take 1 tablet twice a day by oral route for 30 days. metformin 500 mg tablet Take 1 tablet twice a day by oral route for 30 days. No metformin 500 mg tablet Take 1 tablet twice a day by oral route for 30 days. [facility] Zithromax Z-Stanford 250 mg tablet TAKE 2 TABLETS (500 MG) BY ORAL ROUTE ONCE DAILY FOR 1 DAY THEN 1 TABLET (250 MG) BY ORAL ROUTE ONCE DAILY FOR 4 DAYS Zithromax Z-Stanford 250 mg tablet TAKE 2 TABLETS (500 MG) BY ORAL ROUTE ONCE DAILY FOR 1 DAY THEN 1 TABLET (250 MG) BY ORAL ROUTE ONCE DAILY FOR 4 DAYS No Zithromax Z-Sta[place] 250 mg tablet TAKE 2 TABLETS (500 MG) BY ORAL ROUTE ONCE DAILY FOR 1 DAY THEN 1 TABLET (250 MG) BY ORAL ROUTE ONCE DAILY FOR 4 DAYS [facility] Vital Signs Vital Name Observation Time Observation Value Comments S ource Height 2022-04-06 00:00:00 62 [in_i] [facility] BMI (Body Mass Index) 2022-04-06 00:00:00 40.4 kg/m2 [facility] Body Weight 2022-04-06 00:00:00 221 [lb_av] [facility] BP Diastolic 2021-02-24 00:00:00 86 mm[Hg] [facility] Height 2021-02-24 00:00:00 62 [in_i] [facility] BMI (Body Mass Index) 2021-02-24 00:00:00 41.5 kg/m2 [facility] BP Systolic 2021-02-24 00:00:00 124 mm[Hg] [facility] Body Weight 2021-02-24 00:00:00 227 [lb_av] [facility] BP Diastolic 2021-01-21 00:00:00 87 mm[Hg] [facility] Height 2021-01-21 00:00:00 62 [in_i] [facility] BMI (Body Mass Index) 2021-01-21 00:00:00 41.2 kg/m2 [facility] BP Systolic 2021-01-21 00:00:00 121 mm[Hg] [facility] Body Weight 2021-01-21 00:00:00 3600 [oz_av] [facility] BP Diastolic 2020-12-31 00:00:00 80 mm[Hg] [facility] Height 2020-12-31 00:00:00 62 [in_i] [facility] BMI (Body Mass Index) 2020-12-31 00:00:00 41 kg/m2 [facility] BP Systolic 2020-12-31 00:00:00 118 mm[Hg] [facility] Body Weight 2020-12-31 00:00:00 3585 [oz_av] [facility] Height 2020-04-12 00:00:00 62 [in_i] [facility] BMI (Body Mass Index) 2020-04-12 00:00:00 41.3 kg/m2 [facility] Body Weight 2020-04-12 00:00:00 3616 [oz_av] [facility] Height 2020-02-17 00:00:00 62 [in_i] [facility] BMI (Body Mass Index) 2020-02-17 00:00:00 40.1 kg/m2 [facility] Body Weight 2020-02-17 00:00:00 219 [lb_av] [facility] BP Diastolic 2020-01-07 00:00:00 96 mm[Hg] [facility] Height 2020-01-07 00:00:00 62 [in_i] [facility] BMI (Body Mass Index) 2020-01-07 00:00:00 41.4 kg/m2 [facility] BP Systolic 2020-01-07 00:00:00 131 mm[Hg] [facility] Body Weight 2020-01-07 00:00:00 3622 [oz_av] [facility] BP Diastolic 2019-10-09 00:00:00 83 mm[Hg] [facility] Height 2019-10-09 00:00:00 62 [in_i] [facility] BMI (Body Mass Index) 2019-10-09 00:00:00 42.3 kg/m2 [facility] BP Systolic 2019-10-09 00:00:00 130 mm[Hg] [facility] Body Weight 2019-10-09 00:00:00 231 [lb_av] [facility] BP Diastolic 2019-10-07 00:00:00 110 mm[Hg] [facility] Height 2019-10-07 00:00:00 62 [in_i] [facility] BMI (Body Mass Index) 2019-10-07 00:00:00 42.3 kg/m2 [facility] BP Systolic 2019-10-07 00:00:00 148 mm[Hg] [facility] Body Weight 2019-10-07 00:00:00 3703 [oz_av] [facility] BP Diastolic 2019-09-16 00:00:00 98 mm[Hg] [facility] Height 2019-09-16 00:00:00 62 [in_i] [facility] BMI (Body Mass Index) 2019-09-16 00:00:00 43.2 kg/m2 [facility] BP Systolic 2019-09-16 00:00:00 138 mm[Hg] [facility] Body Weight 2019-09-16 00:00:00 236 [lb_av] [facility] BP Diastolic 2019-09-10 00:00:00 101 mm[Hg] [facility] Height 2019-09-10 00:00:00 62 [in_i] [facility] BMI (Body Mass Index) 2019-09-10 00:00:00 43.2 kg/m2 [facility] BP Systolic 2019-09-10 00:00:00 143 mm[Hg] [facility] Body Weight 2019-09-10 00:00:00 3776 [oz_av] Estelle m[facility] Procedures Procedure Date / Time Performed Performing Clinician Source Esophagogastroduodenoscopy 2019-09-24 00:00:00 [facility] Carpal Tunnel Surgery [facility] Endoscopy of Upper [facility] Plan of Care Planned Activity Planned Date Details Comments Source Diagnostic Test Pending 2022-04-06 00:00:00 cytology report, thin prep, smear or scraping, cervical or vaginal [code = cytology report, thin prep, smear or scraping, cervical or vaginal] [facility] Diagnostic Test Pending 2022-04-06 00:00:00 HIV 1 + 2, meaningful use set [code = HIV 1 + 2, meaningful use set] [facility] Diagnostic Test Pending 2022-04-06 00:00:00 RPR (rapid plasma reagin), serum [code = RPR (rapid plasma reagin), serum] [facility] Diagnostic Test Pending 2022-04-06 00:00:00 HBsAg (hepatitis B surface Ag), EIA, serum [code = HBsAg (hepatitis B surface Ag), EIA, serum] [facility] Diagnostic Test Pending 2021-01-21 00:00:00 rapid strep group A, throat [code = rapid strep group A, throat] [facility] Encounters Start Date/Time End Date/Time Encounter Type Admission Type Attending Clinicians Care Facility Care Department Encounter ID Source 2023-08-02 08:07:00 2023-08-02 11:00:00 emergency [facility] [id number] 2023-08-02 08:07:00 2023-08-02 11:00:00 Emergency ER JESUS LI [facility] [id number] [facility] 2023-05-30 08:23:00 2023-05-30 10:10:00 emergency [facility] [id number] 2023-05-30 08:23:00 2023-05-30 10:10:00 Emergency ER BELCHER BERNADETTE [facility] [id number] [facility] 2022-09-02 19:58:00 2022-09-02 23:35:00 Emergency ER MICHAELPAULINENATALIROMARIO Tamayo [facility] [id number] [facility] 2022-07-13 00:00:00 2022-07-13 00:00:00 Outpatient LISTER_MELI [facility] [id number] [facility] 2022-06-15 02:28:00 2022-06-15 03:00:00 Emergency ER GERBER CORREIA [facility] [id number] [facility] 2022-05-18 12:57:00 2022-05-18 14:21:00 Emergency ER ROSANGELA SUERO [facility] [id number] [facility] 2022-04-30 00:00:00 2022-04-30 00:00:00 Outpatient LISTER_MELI [facility] [id number] [facility] 2022-04-24 00:00:00 2022-04-24 00:00:00 Outpatient LISTER_MELI [facility] [id number] [facility] 2022-04-06 00:00:00 2022-04-06 00:00:00 Outpatient LISTER_MELI [facility] [id number] [facility] 2022-04-06 00:00:00 2022-04-06 00:00:00 Tiffany Carlton, PERCUSSION INSTRUMENT TUNER: Susie Evans, [place] [address] , Ph. [facility] DISPLAY DIRECTOR [id number] [facility] 2022-04-05 00:00:00 2022-04-05 00:00:00 Outpatient LISTER_MELI [facility] [id number] [facility] 2021-06-22 14:54:00 2021-06-22 17:09:00 Emergency ER ADAM SILVA [facility] [id number] [facility] 2021-03-25 13:31:00 2021-03-25 14:30:00 Emergency ER NICKOLAS FLORESRony [facility] [id number] [facility] 2021-03-15 06:07:00 2021-03-15 06:07:00 Outpatient LISTER_MELI [facility] [id number] [facility] 2021-02-24 05:41:00 2021-02-24 05:41:00 Outpatient LISTER_MELI [facility] [id number] [facility] 2021-02-24 00:00:00 2021-02-24 00:00:00 Tiffany Carlton, PERCUSSION INSTRUMENT TUNER: Susie Evans, [place] [address] , Ph. [facility] DISPLAY DIRECTOR [id number] [facility] 2021-02-20 11:08:00 2021-02-20 11:08:00 Outpatient LISTER_MELI [facility] [id number] [facility] 2021-02-14 01:32:00 2021-02-14 01:32:00 Outpatient LISTER_MELI [facility] [id number] [facility] 2021-01-29 14:44:00 2021-01-29 17:11:00 Emergency TR LISA GIBBS [facility] [id number] [facility] 2021-01-25 10:03:00 2021-01-25 10:37:00 Emergency ER NOEL FLORES [facility] [id number] [facility] 2021-01-24 11:52:00 2021-01-24 11:52:00 Outpatient Koudela_A MMG MM [id number] [facility] 2021-01-21 11:10:00 2021-01-21 11:10:00 Outpatient Koudela_A MMG MMG [id number] [facility] 2021-01-21 00:00:00 2021-01-21 00:00:00 Cheryl Flor PA-C: [address] [place] [address] [address] [address] , Ph. MM[facility] [id number] [facility] 2021-01-04 10:49:00 2021-01-04 10:49:00 Outpatient Zuniga_F MMG MMG [id number] [facility] 2020-12-31 11:30:00 2020-12-31 11:30:00 Outpatient Zuniga_F MMG MMG [id number] [facility] 2020-12-31 11:30:00 2020-12-31 11:30:00 Outpatient Zuniga_F MMG MMG [id number] [facility] 2020-12-31 11:30:00 2020-12-31 11:30:00 Outpatient Zuniga_F MMG MMG [id number] [facility] 2020-12-31 00:00:00 2020-12-31 00:00:00 Blanka Carrera MD: [address] [place] [address] [address], [place] [address] , Ph. G [facility] [id number] [facility] 2020-12-25 18:57:00 2020-12-25 22:08:00 Emergency ER LOLY BARAJAS [facility] [id number] [facility] 2020-08-09 12:08:00 2020-08-09 13:11:00 Emergency ER KATIE DICKSON [facility] [id number] [facility] 2020-06-13 01:04:00 2020-06-13 01:04:00 Outpatient Zuniga_F MMG [facility] [id number] [facility] 2020-06-03 05:57:00 2020-06-03 05:57:00 Outpatient Zuniga_F MMG G [id number] [facility] 2020-05-09 01:00:00 2020-05-09 01:00:00 Outpatient Zuniga_F MMG MMG [id number] [facility] 2020-05-07 10:32:00 2020-05-07 10:32:00 Outpatient Zuniga_F MMG MMG [id number] [facility] 2020-04-15 01:04:00 2020-04-15 01:04:00 Outpatient Zuniga_F MMG MMG [id number] [facility] 2020-04-13 09:09:00 2020-04-13 09:09:00 Outpatient Zuniga_F MMG MMG [id number] [facility] 2020-04-12 10:15:00 2020-04-12 10:15:00 Outpatient Zuniga_F MMG MMG [id number] [facility] 2020-04-12 00:00:00 2020-04-12 00:00:00 Blanka Carrera MD: [address] [place] [address] [address], [place] [address] , Ph. [facility] [id number] [facility] 2020-04-05 04:11:00 2020-04-05 04:11:00 Outpatient Zuniga_F MMG [facility] [id number] [facility] 2020-04-01 10:31:00 2020-04-01 10:31:00 Outpatient NASRA BLANKA CARRERA [facility] [id number] [facility] 2020-03-25 01:04:00 2020-03-25 01:04:00 Outpatient Zuniga_F MMG [facility] [id number] [facility] 2020-03-22 10:45:00 2020-03-22 10:45:00 Outpatient Zuniga_F MMG [facility] [id number] [facility] 2020-02-19 01:04:00 2020-02-19 01:04:00 Outpatient Zuniga_F MMG [facility] [id number] [facility] 2020-02-17 05:23:00 2020-02-17 05:23:00 Outpatient JOMAR_SANDRAI [facility] [id number] [facility] 2020-02-17 00:00:00 2020-02-17 00:00:00 Tiffany Carlton, PERCUSSION INSTRUMENT TUNER: [address], [place] [address] , Ph. [facility] DISPLAY DIRECTOR [id number] [facility] 2020-02-16 11:50:00 2020-02-16 11:50:00 Outpatient DORIANI [facility] [id number] [facility] 2020-02-11 02:22:00 2020-02-11 02:22:00 Outpatient Zuniga_F MMG [facility] [id number] [facility] 2020-02-10 02:14:00 2020-02-10 02:14:00 Outpatient JOMAR_RADHA QUEEN [id number] [facility] 2020-01-19 12:53:00 2020-01-19 16:27:00 Emergency ER HANNAH DEY [facility] [id number] [facility] 2020-01-15 01:05:00 2020-01-15 01:05:00 Outpatient Zuniga_F MMG [facility] [id number] [facility] 2020-01-13 09:13:00 2020-01-13 09:13:00 Outpatient Zuniga_F MMG MMG [id number] [facility] 2020-01-11 01:03:00 2020-01-11 01:03:00 Outpatient Zuniga_F MMG MMG [id number] [facility] 2020-01-08 11:51:00 2020-01-08 11:51:00 Outpatient Zuniga_F MMG MMG [id number] [facility] 2020-01-07 03:29:00 2020-01-07 03:29:00 Outpatient Zuniga_F MMG MMG [id number] [facility] 2020-01-07 00:00:00 2020-01-07 00:00:00 Blanka Carrera MD: [address] [place] [address] , Ph. G [facility] [id number] [facility] 2020-01-06 06:02:00 2020-01-06 06:02:00 Outpatient Zuniga_F MMG MMG [id number] [facility] 2019-12-23 11:05:00 2019-12-23 11:05:00 Outpatient Zuniga_F MMG MMG [id number] [facility] 2019-11-18 12:59:00 2019-11-18 12:59:00 Outpatient Zuniga_F MMG [facility] [id number] [facility] 2019-11-17 10:40:00 2019-11-17 10:40:00 Outpatient Zuniga_F MMG MMG [id number] [facility] 2019-10-13 12:26:00 2019-10-13 12:26:00 Outpatient Zuniga_F MMG MM [id number] [facility] 2019-10-09 04:28:00 2019-10-09 04:28:00 Outpatient Zuniga_F MMG MM [id number] [facility] 2019-10-09 00:00:00 2019-10-09 00:00:00 Chano Henry MD: [address] [address] , Ph. [phone] MMAMG [facility] General surgery [id number] [facility] 2019-10-08 04:39:00 2019-10-08 04:39:00 Outpatient Zuniga_F MMG [facility] [id number] [facility] 2019-10-07 07:35:00 2019-10-07 07:35:00 Outpatient Zuniga_F MMG [facility] [id number] [facility] 2019-10-07 00:00:00 2019-10-07 00:00:00 Blanka Carrera MD: [address] [address] , Ph. [facility] [place] [place] [facility] [id number] [facility] 2019-09-25 03:59:00 2019-09-25 03:59:00 Outpatient Zuniga_F MMG MM [id number] [facility] 2019-09-24 06:22:00 2019-09-24 06:22:00 Outpatient CHANO VELAZQUEZ [facility] [id number] [facility] 2019-09-17 11:08:00 2019-09-17 11:08:00 Outpatient Zuniga_F MMG MM [id number] [facility] 2019-09-16 12:03:00 2019-09-16 12:03:00 Outpatient Zuniga_F MMG MM [id number] [facility] 2019-09-16 00:00:00 2019-09-16 00:00:00 Chano Henry MD: [address], [place] [address] , Ph. [phone] MM[facility] surgery [id number] [facility] 2019-09-11 19:57:00 2019-09-11 23:00:00 Emergency ER RAMAN HARGROVE [facility] [id number] [facility] 2019-09-11 09:13:00 2019-09-11 09:13:00 Outpatient Zuniga_F MMG MM [id number] [facility] [facility] 2019-09-10 07:30:00 2019-09-10 07:30:00 Outpatient Zuniga_F [facility]G [facility] [id number] [facility] 2019-09-10 00:00:00 2019-09-10 00:00:00 Blanka Carrera MD: [address], [place] [address] , Ph. G [facility] [id number] [facility] 2019-08-25 04:23:00 2019-08-25 04:23:00 Outpatient Zuniga_F MMG [id number] [facility] 2019-07-02 19:18:00 2019-07-02 20:17:00 Emergency ER ALFREDO YANES [facility] [id number] [facility] 2019-06-17 12:47:00 2019-06-17 14:04:00 Emergency ER RAMAN HARGROVE [facility] [id number] [facility] 2019-05-18 18:05:00 2019-05-18 19:41:00 Emergency ER HANNAH DEY [facility] [id number] [facility] 2019 21:09:00 2019 23:45:00 Emergency ER RAMAN HARGROVE [facility] [id number] [facility] 2019-02-18 23:54:00 2019-02-19 01:28:00 Emergency ER NOEL FLORES [facility] [id number] [facility] 2019-01-28 19:42:00 2019-01-29 01:02:00 Emergency ER VITALY ROCHA [facility] [id number] [facility] 2017-05-25 14:37:00 2017-05-25 16:22:00 Emergency ER NOEL FLORES [facility] [id number] [facility] 2017-05-10 22:50:00 2017-05-11 01:15:00 Emergency ER RAMAN HARGROVE [facility] [id number] [facility] 2017-03-26 03:18:00 2017-03-26 05:35:00 Emergency ER BARAK ARREDONDO [facility] [id number] [facility] 2017-03-01 19:04:00 2017-03-01 21:51:00 Emergency ER RAMAN HARGROVE [facility] [id number] [facility] 2017-01-13 11:01:00 2017-01-13 12:28:00 Emergency ER OWONICKOLASS [facility] [id number] [facility] 2016-04-28 16:46:00 2016-04-28 18:23:00 Emergency ER UGORJI, CLEMENT [facility] [id number] [facility] 2016-01-22 00:38:00 2016-01-22 03:02:00 Emergency ER CRISTIAN CLEMENT [facility] [id number] [facility] 2015-12-06 23:09:00 2015-12-07 00:36:00 Emergency ER , WASIM [facility] [id number] [facility] 2015-11-11 20:01:00 2015-11-11 22:02:00 Emergency ER CRISTIAN CLEMENT [facility] [id number] [facility] 2015-09-11 22:03:00 2015-09-11 23:29:00 Emergency ER , WASIM [facility] [id number] [facility] 2015-08-21 22:14:00 2015-08-22 02:45:00 Emergency ER OLIVIA PABLO [facility] [id number] [facility] 2015-05-03 10:57:00 2015-05-03 11:40:00 Emergency ER NOEL FLORES [facility] [id number] [facility] 2015-03-20 00:02:00 2015-03-20 03:22:00 Emergency ER SAEGOVIND, DALTON [facility] [id number] [facility] 2014-09-06 00:08:00 2014-09-06 03:36:00 Emergency ER SHEIKH WASIM [facility] [id number] [facility] 2014-04-14 23:52:00 2014-04-15 03:27:00 Emergency ER CRISTIAN, CLEMENT [facility] [id number] [facility] 2014-03-11 16:42:00 2014-03-11 20:43:00 Emergency ER TOÑO FOSTER [facility] [id number] [facility] 2014-03-08 19:08:00 2014-03-08 20:20:00 Emergency ER SUNNY ARCE [facility] [id number] [facility] 2014-01-02 13:30:00 2014-01-02 16:54:00 Emergency ER SUNNY ARCE [facility] [id number] [facility] 2013-04-12 18:30:00 2013-04-12 21:31:00 Emergency ER TOÑO FOSTER [facility] [id number] [facility] 2007-12-19 06:58:00 2007-12-19 09:50:00 Emergency ER NITA TORO [facility] [id number] [facility] Results Test Description Test Time Test Comments Results Result Co mments Source [facility] 1 and 2 tests - Meaningful Use [id number] 00:00:00* Test Item Value Reference Range Interpretation Comme nts HIV 1+2 Ab+HIV1 p24 Ag [Presence] in Serum or Plasma by Immunoassay (test code = 38712-2) non reactive non reactive [facility] AmericaHepatitis B virus surface Ag [Presence] in Serum or Plasma by [id number] 00:00:00* Test Item Value Reference Range Interpretation Comme nts Hepatitis B virus surface Ag [Presence] in Serum or Plasma by Immunoassay (test code = 5196-1) negative negative [facility] America[facility] W Auto Differential panel - Blood 2020-04-01 09:42:00* Test Item Value Reference Range Interpretation Comme nts white blood count (test code = white blood count) 8.8 K/uL 4.0-11.5 red blood count (test code = red blood count) 4.27 M/uL 3.80-5.20 hemoglobin (test code = hemoglobin) 11.9 g/dL 10.5-15.7 hematocrit (test code = hematocrit) 36.5 % 34.0-50.0 MCV [Entitic volume] (test c ode = 29505-4) 85.5 fL 86-100 L mean corpuscular hemoglobin (test code = mean corpuscular hemoglobin) 27.9 pg 26.2-33.4 mean corpuscular HGB conc (t est code = mean corpuscular HGB conc) 32.6 g/dL 30-34 red cell distribution width (test code = red cell distribution width) 12.0 % 12.0-15.5 platelet count (test code = platelet count) 420 K/uL 165-450 mean platelet volume (test c ode = mean platelet volume) 9.9 fL 9.4-12.6 Segmented neutrophils/100 leukocytes in Blood (test code = 69568-1) 56.8 % 44.4-80.1 Immature granulocytes [#/vol ume] in Blood (test code = 61022-6) 0.0 K/uL 0.0-0.03 H lymphocyte% (test code = lymphocyte%) 33.1 % 10.0-50.0 mono % (test code = mono %) 6.6 % 3.6-12.0 eos % (test code = eos %) 2.3 % 0.0-5.4 Basophils/100 leukocytes in Unspecified specimen (test code = 57714-4) 0.7 % 0.1-1.2 Band form neutrophils [#/vol ume] in Blood (test code = 59856-3) 5.00 K/uL 1.56-6.13 Lymphocytes [#/volume] in Unspecified specimen by Automated count (test code = 79930-5) 2.9 K/uL 1.18-3.74 mono # (test code = mono #) 0.58 K/uL 0.24-0.86 eos # (test code = eos #) 0.20 K/uL 0.04-0.36 basophil # (test code = baso dany #) 0.06 K/uL 0.01-0.08 NRBC% (test code = NRBC%) 0 /100 WBC 0-0.2 NRBC# (test code = NRBC#) 0 K/uL [facility], method unspecified - [id number] 09:42:00NeutrophilsBandLymphocyteAtypical LymphMonocyteEosinophilBasophilMetamyelocyteMyelocytePromyelocyteBlastsNucleated Red Blood CellAbs Neutrophil Count (Man)Abs Lymph Count (Man)Abs Monocyte Count (Man)Abs Eosinophil Count (Man)Abs Basophil Count (Man)Platelet EstimatePlatelet MorphologyAnisocytosisMacrocytosisStomatocyteToxic GranulationToxic VacuolationSmudge CellsGiant PlateletsSickle CellsDifferential comment-[facility] CenterHemoglobin A1c [Mass/volume] in [id number] 09:42:00* Test Item Value Reference Range Interpretation Comme nts Hemoglobin A1c [Mass/volume] in Blood (test code = 75893-5) 6.4 % 4.0-6.0 H [facility]Com[facility] 2000 panel - Serum or Plasma 2020-04-01 09:42:00* Test Item Value Reference Range Interpretation Comme nts glucose (test code = glucose) 145 mg/dL 74-106 H Urea nitrogen [Mass/volume] in Serum or Plasma (test code = 3094-0) 11 mg/dL 6-20 osmolality calculated,serum (test code = osmolality calculated,serum) 283 mOsm/kg 280-300 creatinine (test code = creatinine) 0.7 mg/dL 0.50-0.90 glomerular filtration rate ( test code = glomerular filtration rate) >60.00 Urea nitrogen/Creatinine [Ma ss Ratio] in Serum or Plasma (test code = 3097-3) 15.7 12-20 sodium level (test code = so dium level) 141 mmol/L 135-145 Potassium [Moles/volume] in Body fluid (test code = 2821-7) 4.2 mmol/L 3.5-5.2 chloride level (test code = chloride level) 105 mmol/L 98-108 CO2 (test code = CO2) 24 mmol/L 21-32 anion gap (test code = anion gap) 16.2 mEq/L 12-20 calcium level (test code = calcium level) 9.1 mg/dL 8.6-10.0 total protein (test code = t otal protein) 7.2 g/dL 6.6-8.7 albumin (test code = albumin) 4.0 g/dL 3.5-5.2 globulin (test code = globulin) 3.2 gm/dL A/G ratio (test code = A/G ratio) 1.3 >1.0 bilirubin,total (test code = bilirubin,total) <0.3 0.0-1.2 AST/SGOT (test code = AST/SGOT) 12 U/L 15-32 L Alanine aminotransferase [Enzymatic activity/volume] in Serum or Plasma (test code = 1742-6) 20 U/L 0-33 Alkaline phosphatase [Enzyma tic activity/volume] in Serum or Plasma (test code = 6768-6) 180 U/L 35-105 H [facility] Hospital[facility] panel - Serum or [id number] 09:42:00* Test Item Value Reference Range Interpretation Comme nts cholesterol level (test code = cholesterol level) 191 mg/dL 150-200 triglycerides level (test co de = triglycerides level) 264 mg/dL <150 H HDL cholesterol (test code = HDL cholesterol) 37 mg/dL >65 L LDL cholesterol direct (test code = LDL cholesterol direct) 130 mg/dL <100 H cholesterol risk ratio (test code = cholesterol risk ratio) 5.162 [facility] HospitalHepatitis B virus surface Ag [Presence] in Serum or Plasma by [id number] 00:00:00* Test Item Value Reference Range Interpretation Comme nts Hepatitis B virus surface Ag [Presence] in Serum or Plasma by Immunoassay (test code = 5196-1) negative negative [facility] AmericaReagin Ab [Presence] in Serum by RPR 2020-02-18 00:00:00* Test Item Value Reference Range Interpretation Comme nts Reagin Ab [Presence] in Seru m by RPR (test code = 58387-5) non reactive non reactive [facility] AmericaHIV 1+2 Ab+HIV1 p24 Ag [Presence] in Serum or Plasma by [id number] 00:00:00* Test Item Value Reference Range Interpretation Comme nts HIV 1+2 Ab+HIV1 p24 Ag [Presence] in Serum or Plasma by Immunoassay (test code = 82777-2) non reactive non reactive [facility] [id number] 05:33:00* Test Item Value Reference Range Interpretation Comme [facility] Surgical pathology study (test code = 99716-7) see separate pathology report. [facility] W Auto Differential panel - [id number] 11:30:00 * Test Item Value Reference Range Interpretation Comme [facility] white blood count (test code = white blood count) 9.7 K/uL 4.0-11.5 red blood count (test code = red blood count) 4.85 M/uL 3.80-5.20 hemoglobin (test code = hemoglobin) 14.0 g/dL 10.5-15.7 hematocrit (test code = hematocrit) 41.0 % 34.0-50.0 MCV [Entitic volume] (test c ode = 74112-1) 84.5 fL 86-100 L mean corpuscular hemoglobin (test code = mean corpuscular hemoglobin) 28.9 pg 26.2-33.4 mean corpuscular HGB conc (t est code = mean corpuscular HGB conc) 34.1 g/dL 30-34 H red cell distribution width (test code = red cell distribution width) 11.9 % 12.0-15.5 L platelet count (test code = platelet count) 310 K/uL 165-450 mean platelet volume (test c ode = mean platelet volume) 9.5 fL 9.4-12.6 Segmented neutrophils/100 leukocytes in Blood (test code = 92700-5) 65.5 % 44.4-80.1 Immature granulocytes [#/vol ume] in Blood (test code = 81313-4) 0.1 K/uL 0.0-0.03 H lymphocyte% (test code = lymphocyte%) 25.6 % 10.0-50.0 mono % (test code = mono %) 5.8 % 3.6-12.0 eos % (test code = eos %) 2.2 % 0.0-5.4 Basophils/100 leukocytes in Unspecified specimen (test code = 20616-8) 0.4 % 0.1-1.2 Band form neutrophils [#/vol ume] in Blood (test code = 83360-5) 6.37 K/uL 1.56-6.13 H Lymphocytes [#/volume] in Unspecified specimen by Automated count (test code = 46649-0) 2.5 K/uL 1.18-3.74 mono # (test code = mono #) 0.56 K/uL 0.24-0.86 eos # (test code = eos #) 0.21 K/uL 0.04-0.36 basophil # (test code = baso dany #) 0.04 K/uL 0.01-0.08 NRBC% (test code = NRBC%) 0 /100 WBC 0-0.2 NRBC# (test code = NRBC#) 0 K/uL [facility] HospitalDifferential panel, method unspecified - [id number] 11:30:00NeutrophilsBandLymphocyteAtypical LymphMonocyteEosinophilMetamyelocytePlatelet EstimatePlatelet MorphologyToxic VacuolationNoxubee General HospitalHemoglobin A1c [Mass/volume] in Blood 2019-09-22 11:30:00* Test Item Value Reference Range Interpretation Comme nts Hemoglobin A1c [Mass/volume] in Blood (test code = 24534-6) 9.0 % 4.0-6.0 H [facility] HospitalChoriogonadotropin ( test) [Presence] in Serum or [id number] 11:30:00* Test Item Value Reference Range Interpretation Comme nts Choriogonadotropin.beta subu nit ( test) [Presence] in Serum or Plasma (test code = 2110-5) negative neg [facility] HospitalCom[facility] 2000 panel - Serum or Plasma 2019-09-22 11:30:00* Test Item Value Reference Range Interpretation Comme nts Glucose [Mass/volume] in Ser um or Plasma (test code = 2345-7) 294 mg/dL 74-106 H Urea nitrogen [Mass/volume] in Serum or Plasma (test code = 3094-0) 10 mg/dL 6-20 osmolality calculated,serum (test code = osmolality calculated,serum) 278 mOsm/kg 280-300 L creatinine (test code = creatinine) 0.6 mg/dL 0.50-0.90 glomerular filtration rate ( test code = glomerular filtration rate) >60.00 Urea nitrogen/Creatinine [Ma ss Ratio] in Serum or Plasma (test code = 3097-3) 16.7 12-20 sodium level (test code = so dium level) 134 mmol/L 135-145 L potassium level (test code = potassium level) 4.2 mmol/L 3.5-5.2 chloride level (test code = chloride level) 99 mmol/L 98-108 CO2 (test code = CO2) 21 mmol/L 21-32 anion gap (test code = anion gap) 18.2 mEq/L 12-20 calcium level (test code = calcium level) 9.2 mg/dL 8.6-10.0 total protein (test code = t otal protein) 7.6 g/dL 6.6-8.7 albumin (test code = albumin) 4.1 g/dL 3.5-5.2 globulin (test code = globulin) 3.5 gm/dL A/G ratio (test code = A/G ratio) 1.2 >1.0 bilirubin,total (test code = bilirubin,total) 0.3 mg/dL 0.0-1.2 AST/SGOT (test code = AST/SGOT) 17 U/L 15-32 Alanine aminotransferase [Enzymatic activity/volume] in Serum or Plasma (test code = 1742-6) 35 U/L 0-33 H Alkaline phosphatase [Enzyma tic activity/volume] in Serum or Plasma (test code = 6768-6) 168 U/L 35-105 H [facility] HospitalPrealbumin [Mass/volume] in Serum or [id number] 11:30:00* Test Item Value Reference Range Interpretation Comme nts pre-albumin (test code = pre-albumin) 23.0 mg/dL 20-40 [facility] W Auto Differential panel - [id number] 06:11:00 * Test Item Value Reference Range Interpretation Comme nts white blood count (test code = white blood count) 10.6 K/uL 4.0-11.5 red blood count (test code = red blood count) 5.00 M/uL 3.80-5.20 hemoglobin (test code = hemoglobin) 14.5 g/dL 10.5-15.7 hematocrit (test code = hematocrit) 42.1 % 34.0-50.0 MCV [Entitic volume] (test c ode = 48833-6) 84.2 fL 86-100 L mean corpuscular hemoglobin (test code = mean corpuscular hemoglobin) 29.0 pg 26.2-33.4 mean corpuscular HGB conc (t est code = mean corpuscular HGB conc) 34.4 g/dL 30-34 H red cell distribution width (test code = red cell distribution width) 11.9 % 12.0-15.5 L platelet count (test code = platelet count) 326 K/uL 165-450 mean platelet volume (test c ode = mean platelet volume) 9.6 fL 9.4-12.6 Segmented neutrophils/100 leukocytes in Blood (test code = 81196-1) 56.6 % 44.4-80.1 Immature granulocytes [#/vol ume] in Blood (test code = 20788-9) 0.1 K/uL 0.0-0.03 H lymphocyte% (test code = lymphocyte%) 33.3 % 10.0-50.0 mono % (test code = mono %) 6.5 % 3.6-12.0 eos % (test code = eos %) 2.5 % 0.0-5.4 Basophils/100 leukocytes in Unspecified specimen (test code = 97700-0) 0.4 % 0.1-1.2 Band form neutrophils [#/vol ume] in Blood (test code = 57725-8) 6.02 K/uL 1.56-6.13 Lymphocytes [#/volume] in Unspecified specimen by Automated count (test code = 99779-5) 3.5 K/uL 1.18-3.74 mono # (test code = mono #) 0.69 K/uL 0.24-0.86 eos # (test code = eos #) 0.26 K/uL 0.04-0.36 basophil # (test code = baso dany #) 0.04 K/uL 0.01-0.08 NRBC% (test code = NRBC%) 0 /100 WBC 0-0.2 NRBC# (test code = NRBC#) 0 K/uL [facility] HospitalDifferential panel, method unspecified - [id number] 06:11:00NeutrophilsBandLymphocyteAtypical LymphMonocyteEosinophilBasophilNucleated Red Blood CellPlatelet EstimatePlatelet MorphologyHypochromasiaPoikilocytosisAnisocytosisMacrocytosisHowell-jolly BodiesToxic GranulationHypersegmented PolysToxic VacuolationDifferential comment-PMaAllegiance Specialty Hospital of GreenvillePT/[id number] 06:11:00* Test Item Value Reference Range Interpretation Comme nts prothrombin time (test code = prothrombin time) 10.3 seconds 10.3-12.3 INR in Blood by Coagulation assay (test code = 73974-0) 0.95 [facility] Hospitalpartial thromboplastin [id number] 06:11:00* Test Item Value Reference Range Interpretation Comme nts INR in Blood by Coagulation assay (test code = 42041-0) 28.6 seconds 22.5-37.0 [facility] HospitalComprehensive [facility] 2000 panel - Serum or Plasma 2019-09-11 06:11:00* Test Item Value Reference Range Interpretation Comme nts glucose (test code = glucose) 159 mg/dL 74-106 H Urea nitrogen [Mass/volume] in Serum or Plasma (test code = 3094-0) 12 mg/dL 6-20 osmolality calculated,serum (test code = osmolality calculated,serum) 283 mOsm/kg 280-300 creatinine (test code = creatinine) 0.7 mg/dL 0.50-0.90 glomerular filtration rate ( test code = glomerular filtration rate) >60.00 Urea nitrogen/Creatinine [Ma ss Ratio] in Serum or Plasma (test code = 3097-3) 17.1 12-20 sodium level (test code = so dium level) 140 mmol/L 135-145 Potassium [Moles/volume] in Body fluid (test code = 2821-7) 3.7 mmol/L 3.5-5.2 chloride level (test code = chloride level) 103 mmol/L 98-108 CO2 (test code = CO2) 24 mmol/L 21-32 anion gap (test code = anion gap) 16.7 mEq/L 12-20 calcium level (test code = calcium level) 9.4 mg/dL 8.6-10.0 total protein (test code = t otal protein) 7.9 g/dL 6.6-8.7 albumin (test code = albumin) 4.5 g/dL 3.5-5.2 globulin (test code = globulin) 3.4 gm/dL A/G ratio (test code = A/G ratio) 1.3 >1.0 bilirubin,total (test code = bilirubin,total) <0.3 0.0-1.2 AST/SGOT (test code = AST/SGOT) 16 U/L 15-32 Alanine aminotransferase [Enzymatic activity/volume] in Serum or Plasma (test code = 1742-6) 39 U/L 0-33 H Alkaline phosphatase [Enzyma tic activity/volume] in Serum or Plasma (test code = 6768-6) 156 U/L 35-105 H [facility] HospitalNatriuretic peptide.B prohormone N-Terminal [Mass/volume] in Serum or [id number] 06:11:00* Test Item Value Reference Range Interpretation Comme nts N-term pro natriuretic pepti de (test code = N-term pro natriuretic peptide) 15 pg/mL 0-125 [facility] HospitalCreatine kinase [Enzymatic activity/volume] in Serum or [id number] 06:11:00* Test Item Value Reference Range Interpretation Comme nts creatine kinase (test code = creatine kinase) 71 U/L 20-180 [facility] HospitalTroponin I.cardiac [Mass/volume] in [id number] 06:11:00* Test Item Value Reference Range Interpretation Comme [facility] cardiac troponin I (test cod e = cardiac troponin I) <0.30 0.0-0.5 [facility] HospitalCreatine kinase.MB [Mass/volume] in Serum or Plasma 2019-09-11 06:11:00* Test Item Value Reference Range Interpretation Comme [facility] Creatine kinase.MB [Mass/vol ume] in Serum or Plasma by Immunoassay (test code = 81696-7) <1.0 0.0-3.6 [facility]
[2024-01-18] MEDS ORDERED: IBUPROFEN 200 MG TAB PO ONE (10:20)
--- NOTE | 2024-01-18 11:15 | EDPHYS ---
Physician Documentation [facility] Name: Anisha Navarro Age: 33 yrs Sex: Female : 1990 Arrival Date: 01/18/2024 Time: 10:11 Bed 12 Private MD: ED Physician Wilbert Worthington HPI: 01/17 11:12 This 33 yrs old Female presents to ER via Ambulatory with complaints of Ankle uvaldo Injury. 11:12 The patient presents with decreased range of motion, pain, that is acute. The uvaldo complaints affect the left ankle. Onset: The symptoms/episode began/occurred just prior to arrival. Context: resulted from a mis-step by the patient. Associated signs and symptoms: The patient has no apparent associated signs or symptoms. Modifying factors: The symptoms are alleviated by nothing, elevation of extremity. Severity of symptoms: At their worst the symptoms were moderate, in the emergency department the symptoms are unchanged. The patient has not experienced similar symptoms in the past. 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 - Infectious Disease History:: Denies. - Social history:: Smoking status: Patient denies any tobacco usage or history of. - Family history:: not pertinent. ROS: 11:12 Constitutional: Negative for fever, chills, and weight loss, Eyes: Negative for injury, uvaldo pain, redness, and discharge, ENT: Negative for injury, pain, and discharge, Neck: Negative for injury, pain, and swelling, Cardiovascular: Negative for chest pain, palpitations, and edema, Respiratory: Negative for shortness of breath, cough, wheezing, and pleuritic chest pain, Abdomen/GI: Negative for abdominal pain, nausea, vomiting, diarrhea, and constipation, Back: Negative for injury and pain, : Negative for injury, bleeding, discharge, and swelling, Skin: Negative for injury, rash, and discoloration, Neuro: Negative for headache, weakness, numbness, tingling, and seizure, Psych: Negative for depression, anxiety, suicide ideation, homicidal ideation, and hallucinations, Allergy/Immunology: Negative for hives, rash, and allergies, Endocrine: Negative for neck swelling, polydipsia, polyuria, polyphagia, and marked weight changes, Hematologic/Lymphatic: Negative for swollen nodes, abnormal bleeding, and unusual bruising, 11:12 MS/extremity: Positive for injury or acute deformity, contusion, decreased range of motion, swelling, tenderness, of the left lateral ankle, Exam: 11:12 Constitutional: This is a well developed, well nourished patient who is awake, alert, uvaldo and in no acute distress. Head/Face: Normocephalic, atraumatic. Eyes: Pupils equal round and reactive to light, extra-ocular motions intact. Lids and lashes normal. Conjunctiva and sclera are non-icteric and not injected. Cornea within normal limits. Periorbital areas with no swelling, redness, or edema. ENT: Nares patent. No nasal discharge, no septal abnormalities noted. Tympanic membranes are normal and external auditory canals are clear. Oropharynx with no redness, swelling, or masses, exudates, or evidence of obstruction, uvula midline. Mucous membranes moist. Neck: Trachea midline, no thyromegaly or masses palpated, and no cervical lymphadenopathy. Supple, full range of motion without nuchal rigidity, or vertebral point tenderness. No Meningismus. Chest/axilla: Normal chest wall appearance and motion. Nontender with no deformity. No lesions are appreciated. Cardiovascular: Regular rate and rhythm with a normal S1 and S2. No gallops, murmurs, or rubs. Normal PMI, no JVD. No pulse deficits. Respiratory: Lungs have equal breath sounds bilaterally, clear to auscultation and percussion. No rales, rhonchi or wheezes noted. No increased work of breathing, no retractions or nasal flaring. Abdomen/GI: Soft, non-tender, with normal bowel sounds. No distension or tympany. No guarding or rebound. No evidence of tenderness throughout. Back: No spinal tenderness. No costovertebral tenderness. Full range of motion. Skin: Warm, dry with normal turgor. Normal color with no rashes, no lesions, and no evidence of cellulitis. Neuro: Awake and alert, GCS 15, oriented to person, place, time, and situation. Cranial nerves II-XII grossly intact. Motor strength 5/5 in all extremities. Sensory grossly intact. Cerebellar exam normal. Normal gait. Psych: Awake, alert, with orientation to person, place and time. Behavior, mood, and affect are within normal limits. 11:12 Musculoskeletal/extremity: Extremities: grossly normal except: noted in the left lateral ankle and anterior aspect of left ankle: pain, swelling, tenderness, Vital Signs: 10:27 BP 135 / 81; Pulse 80; Resp 18 S; Pulse Ox 100% on R/A; Weight 95.25 kg; Height 5 ft. 2 kc6 in. (R); Pain 01/02; 10:27 Body Mass Index 38.41 (95.25 kg, 157.48 cm) kc6 10:27 Pain Scale: Adult kc6 MDM: 10:14 Medical Screening Exam initiated [facility] 01/17 10:29 Order name: Ankle Left 3 View EDMS 01/17 10:14 Order name: Ice pack; Complete Time: 10:23 [facility] 01/17 11:12 Order name: Walking boot; Complete Time: 11:34 uvaldo Administered Medications: 10:27 Drug: Ibuprofen PO 600 mg PO once Route: PO; kc6 11:39 Follow up: Response: No adverse reaction kc6 Disposition Summary: 01/18/24 11:15 Discharge Ordered Notes: Location: Home uvaldo Problem: new uvaldo Symptoms: have improved uvaldo Condition: Stable uvaldo Diagnosis - Sprain of ankle uvaldo - Sprain of calcaneofibular ligament of left ankle uvaldo Followup: uvaldo - With: Private Physician - When: 2 - 3 days - Reason: Recheck today's complaints, Continuance of care, Re-evaluation by your physician Followup: uvaldo - With: Kvng Dawson MD - When: 2 - 3 days - Reason: Recheck today's complaints, Re-evaluation by your physician Discharge Instructions: - Discharge Summary Sheet uvaldo - Ankle Sprain uvaldo - Ankle Sprain, [id number] uvaldo - Ankle Pain uvaldo - Ankle Exercises uvaldo Forms: - Medication Reconciliation Form uvaldo - Antibiotic Education uvaldo - Prescription Opioid Use uvaldo - Patient Portal Instructions uvaldo - Leadership Thank You Letter uvaldo - Work release form aa5 Prescriptions: - Ibuprofen 600 mg Oral Tablet - take 1 tablet ORAL route every 6 hours As needed take with food; 30 tablet; [facility] Refills: 0, Product Selection Permitted Signatures: Dispatcher [employer] EDWilbert Clifford MD MD cha Campbell, Kaitlyn RN RN kc6 Corrections: (The following items were deleted from the chart) 10:29 10:15 Ankle Right 3 View+RAD.RAD.BRZ ordered. CECI ORNELAS
--- NOTE | 2024-01-18 11:15 | ER ---
Nurse's Notes [facility] Name: Anisha Navarro Age: 33 yrs Sex: Female : 1990 Arrival Date: 01/18/2024 Time: 10:11 Bed 12 Private MD: Diagnosis: Sprain of ankle;Sprain of calcaneofibular ligament of left ankle Presentation: 01/17 10:27 Chief complaint: Patient states: she fell while going down the stairs and rolled her kc6 left ankle 20min [employer]AD[employer]. reports 10/10 pain. Coronavirus screen: At this time, the client does not indicate any symptoms associated with coronavirus-19. Ebola Screen: No symptoms or risks identified at this time. Initial Sepsis Screen: Does the patient meet any 2 criteria? No. Patient's initial sepsis screen is negative. Does the patient have a suspected source of infection? No. Patient's initial sepsis screen is negative. Risk Assessment: Do you want to hurt yourself or someone else? Patient reports no desire to harm self or others. Onset of symptoms was January 18, 2024. 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 - Infectious Disease History:: Denies. - Social history:: Smoking status: Patient denies any tobacco usage or history of. - Family history:: not pertinent. Screenin:29 [facility] ED Fall Risk Assessment (Adult) History of falling in the last 3 months, [facility] including since admission Yes- single mechanical fall (1 pt) Confusion or Disorientation No (0 pts) Intoxicated or Sedated No (0 pts) Impaired Gait No (0 pts) Mobility Assist Device Used No (0 pt) Altered Elimination No (0 pt) Score/Fall Risk Level 0 - 2 = Low Risk Oriented to surroundings. Abuse screen: Denies threats or abuse. Denies injuries from another. Nutritional screening: No deficits noted. Tuberculosis screening: No symptoms or risk factors identified. Assessment: 10:47 General: Appears in no apparent distress. uncomfortable, well groomed, well developed, kc6 Behavior is calm, cooperative, appropriate for age. Pain: Complains of pain in left foot Pain currently is 10 out of 10 on a pain scale. Neuro: Level of Consciousness is awake, alert, obeys commands, Oriented to person, place, time, situation, Appropriate for age. Cardiovascular: Capillary refill < 3 seconds. Respiratory: Airway is patent Trachea midline Respiratory effort is even, unlabored, Respiratory pattern is regular, symmetrical. GI: No signs and/or symptoms were reported involving the gastrointestinal system. : No signs and/or symptoms were reported regarding the genitourinary system. EENT: No signs and/or symptoms were reported regarding the EENT system. Derm: No signs and/or symptoms reported regarding the dermatologic system. Skin is intact, is healthy with good turgor, Skin is pink, warm \T\ dry. Musculoskeletal: Circulation, motion, and sensation intact. Capillary refill < 3 seconds, Range of motion: limited in left ankle. 11:39 Reassessment: Patient appears in no apparent distress at this time. No changes from kc6 previously documented assessment. Patient and/or family updated on plan of care and expected duration. Pain level reassessed. Patient is alert, oriented x 3, equal unlabored respirations, skin warm/dry/pink. 11:45 Reassessment: Patient is alert, oriented x 3, equal unlabored respirations, skin aa5 warm/dry/pink. Vital Signs: 10:27 BP 135 / 81; Pulse 80; Resp 18 S; Pulse Ox 100% on R/A; Weight 95.25 kg; Height 5 ft. 2 kc6 in. (R); Pain 10/10; 10:27 Body Mass Index 38.41 (95.25 kg, 157.48 cm) kc6 10:27 Pain Scale: Adult kc6 ED Course: 10:12 Patient arrived in ED. mr 10:14 Wilbert Worthington MD is Attending Physician. [facility] 10:23 Svetlana Griffin, BERNIE is Primary Nurse. kc6 10:28 Triage completed. kc6 10:28 Arm band placed on. kc6 10:29 Patient has correct armband on for positive identification. Bed in low position. Call kc6 light in reach. Side rails up X 1. Adult w/ patient. Pulse ox on. NIBP on. Door closed. Noise minimized. Lights dimmed. Pillow given. Ice pack to injury. 10:29 Wound care: ice pack applied. kc6 10:30 Patient maintains SpO2 saturation greater than 95% on room air. kc6 10:39 Ankle Left 3 View In Process Unspecified. EDAK 11:14 Kvng Dawson MD is Referral Physician. [facility] 11:34 3D boot applied to left foot. em1 11:45 No provider procedures requiring assistance completed. Patient did not have IV access aa5 during this emergency room visit. Administered Medications: 10:27 Drug: Ibuprofen PO 600 mg PO once Route: PO; kc6 11:39 Follow up: Response: No adverse reaction kc6 Medication: 11:45 VIS not applicable for this client. aa5 Outcome: 11:15 Discharge ordered by . [facility] 11:45 Discharged to home ambulatory, with family, aa5 11:45 Condition: stable 11:45 Discharge instructions given to patient, Instructed on discharge instructions, follow up and referral plans. medication usage, Demonstrated understanding of instructions, follow-up care, medications, Prescriptions given X 1, 11:48 Patient left the ED. aa5 Signatures: Dispatcher [employer] EDMS Wilbert Worthington MD MD cha Rivera, Mary, Reg Reg Neo Patterson em1 Lisha Louie, RN RN aa5 Svetlana Griffin RN RN kc6
--- NOTE | 2024-01-18 11:24 | RAD REPORT ---
EXAMINATION: Ankle Left 3 View CLINICAL INDICATION: Female, 33 years old. [facility] MA[facility] PAIN Bed: TECHNIQUE: 3 view radiographs of the left ankle were obtained. COMPARISON: No prior exam. FINDINGS: No bone or joint abnormality seen. IMPRESSION: No acute or significant abnormalities.
[2024-01-18 20:55] VITALS: BP 135/81; O2SAT 100
== END 2024-01-18 11:48 | disposition home or self-care (01) ==
LOC: ER 10:11
DX: S93.412A Sprain of calcaneofibular ligament of left ankle, initial encounter (principal)
CPT/HCPCS: 99284

== ENCOUNTER 2024-01-30 15:51 | Emergency (ER) | payer SELFPAY ==
--- OUTSIDE RECORDS SUMMARY | 2024-01-30 15:54 | XMS REPORT | Continuity of Care Document ---
Author Name Unknown Address [address] [facility] [address]. [address] [place] [address] [facility] Address [address] [facility] Ernesto. [address] [place] [address] Care Team Providers Care [employer] Finisher Name Role Phone JESUS LI Attending Clinician [...] Source [place] [facility] [place]MEDICAID) [id number] 2021 00:00:00 [place] FOR[place] [facility] [id number] [place] [id number] Problems Condition Name Condition Details Condition Category Status Onset Date Resolution Date Last Treatment Date Treating Clinician Comments Source Type 2 diabetes mellitus Type 2 Diabetes Mellitus Problem Active 2019-03 00:00: 00 [facility] Essential hypertensi on Essential Hypertensi on Problem Active 2019-03 00:00: 00 [facility] Acid reflux Acid Reflux Problem Active 2019-03 00:00: 00 [facility] Allergies, Adverse Reactions, Alerts Allergy Name Allergy Type Status Severity Reaction(s) Onset Date Inactive Date Treating Clinician Comments Source Benzonat ate Allergy to substanc e Active [facility] Bactrim Allergy to substanc e Active [facility] Tessalon Perles Allergy to substanc e Active Chest pain [facility] Social History Smoking Status Start Date Stop Date Source Former Smoker [facility] Never [facility] Medications Ordered Medication Name Filled Medication Name Start Date Stop Date Current Medication? Ordering Clinician Indication Dosage Frequency Signature (SIG) Comments Components Source lisinopril 20 mg tablet Take 1 tablet every day by oral route for 90 days. lisinopril 20 mg tablet Take 1 tablet every day by oral route for 90 days. No 1 Q1D lisinopril 20 mg tablet Take 1 tablet every day by oral route for 90 days. [facility] metformin 500 mg tablet Take 1 tablet twice a day by oral route for 30 days. metformin 500 mg tablet Take 1 tablet twice a day by oral route for 30 days. No metformin 500 mg tablet Take 1 tablet twice a day by oral route for 30 days. [facility] Zithromax Z-Stanford 250 mg tablet TAKE 2 [...] ONCE DAILY FOR 4 DAYS No Zithromax Z-Stanford 250 mg tablet TAKE 2 TABLETS (500 MG) BY ORAL ROUTE ONCE DAILY FOR 1 DAY THEN 1 TABLET (250 MG) BY ORAL ROUTE ONCE DAILY FOR 4 DAYS [facility] Vital Signs Vital Name Observation Time Observation Value Sahil tamayo Body Weight 2024-01-23 00:00:00 210 [lb_av] [facility] BP Systolic 2024-01-23 00:00:00 139 mm[Hg] [facility] BP Diastolic 2024-01-23 00:00:00 96 mm[Hg] [facility] Height 2024-01-23 00:00:00 62 [in_i] [facility] BMI (Body Mass Index) 2024-01-23 00:00:00 38.4 kg/m2 [facility] Height 2022-04-06 00:00:00 62 [in_i] [facility] BMI (Body Mass Index) 2022-04-06 00:00:00 40.4 kg/m2 [facility] Body Weight 2022-04-06 00:00:00 221 [lb_av] [facility] BP Diastolic 2021-02-24 00:00:00 86 mm[Hg] [facility] Height 2021-02-24 00:00:00 62 [in_i] [facility] BMI (Body Mass Index) 2021-02-24 00:00:00 41.5 kg/m2 [facility] BP Systolic 2021-02-24 00:00:00 124 mm[Hg] [facility] Body Weight 2021-02-24 00:00:00 227 [lb_av] [facility] BP Diastolic 2021-01-21 00:00:00 87 mm[Hg] [facility] Height 2021-01-21 00:00:00 62 [in_i] [facility] BMI (Body Mass Index) 2021-01-21 00:00:00 41.2 kg/m2 [facility] BP Systolic 2021-01-21 00:00:00 121 mm[Hg] [facility] Body Weight 2021-01-21 00:00:00 3600 [oz_av] [facility] BP Diastolic 2020-12-31 00:00:00 80 mm[Hg] [facility] Height 2020-12-31 00:00:00 62 [in_i] [facility] BMI (Body Mass Index) 2020-12-31 00:00:00 41 kg/m2 [facility] BP Systolic 2020-12-31 00:00:00 118 mm[Hg] [facility] Body Weight 2020-12-31 00:00:00 3585 [oz_av] [facility] Height 2020-04-12 00:00:00 62 [in_i] [facility] BMI (Body Mass Index) 2020-04-12 00:00:00 41.3 kg/m2 [facility] Body Weight 2020-04-12 00:00:00 3616 [oz_av] [facility] Height 2020-02-17 00:00:00 62 [in_i] [facility] BMI (Body Mass Index) 2020-02-17 00:00:00 40.1 kg/m2 [facility] Body Weight 2020-02-17 00:00:00 219 [lb_av] [facility] BP Diastolic 2020-01-07 00:00:00 96 mm[Hg] [facility] Height 2020-01-07 00:00:00 62 [in_i] [facility] BMI (Body Mass Index) 2020-01-07 00:00:00 41.4 kg/m2 [facility] BP Systolic 2020-01-07 00:00:00 131 mm[Hg] [facility] Body Weight 2020-01-07 00:00:00 3622 [oz_av] [facility] BP Diastolic 2019-10-09 00:00:00 83 mm[Hg] [facility] Height 2019-10-09 00:00:00 62 [in_i] [facility] BMI (Body Mass Index) 2019-10-09 00:00:00 42.3 kg/m2 [facility] BP Systolic 2019-10-09 00:00:00 130 mm[Hg] [facility] Body Weight 2019-10-09 00:00:00 231 [lb_av] [facility] BP Diastolic 2019-10-07 00:00:00 110 mm[Hg] [facility] Height 2019-10-07 00:00:00 62 [in_i] [facility] BMI (Body Mass Index) 2019-10-07 00:00:00 42.3 kg/m2 [facility] BP Systolic 2019-10-07 00:00:00 148 mm[Hg] [facility] Body Weight 2019-10-07 00:00:00 3703 [oz_av] [facility] BP Diastolic 2019-09-16 00:00:00 98 mm[Hg] [facility] Height 2019-09-16 00:00:00 62 [in_i] [facility] BMI (Body Mass Index) 2019-09-16 00:00:00 43.2 kg/m2 [facility] BP Systolic 2019-09-16 00:00:00 138 mm[Hg] [facility] Body Weight 2019-09-16 00:00:00 236 [lb_av] [facility] BP Diastolic 2019-09-10 00:00:00 101 mm[Hg] [facility] Height 2019-09-10 00:00:00 62 [in_i] [facility] BMI (Body Mass Index) 2019-09-10 00:00:00 43.2 kg/m2 [facility] BP Systolic 2019-09-10 00:00:00 143 mm[Hg] [facility] Body Weight 2019-09-10 00:00:00 3776 [oz_av] [facility] Procedures Procedure Date / Time Performed Performing Clinician Source Esophagogastroduodenoscopy 2019-09-24 00:00:00 [facility] Carpal Tunnel Surgery [facility] Cholecystectomy [facility] Endoscopy of Upper Gastrointestinal Tract [facility] Carpal T[facility] Hand Surgery [facility] Plan of Care Planned Activity Planned Date Details Comments Source Diagnostic Test Pending 2021-01-21 00:00:00 rapid strep group A, throat [code = rapid strep group A, throat] [facility] Encounters Start Date/Time End Date/Time Encounter Type Admission Type Attending Clinicians Care Facility Care Department Encounter ID Source 2024-01-23 00:00:00 2024-01-23 00:00:00 Tiffany Carlton, FEDERAL AGENT: [address], [place] [address] , Ph. [facility] [id number] [facility] 2023-08-02 08:07:00 2023-08-02 11:00:00 emergency [facility] [id number] 2023-08-02 08:07:00 2023-08-02 11:00:00 Emergency ER DIAMONDROBY JESUS [facility] [id number] [facility] 2023-05-30 08:23:00 2023-05-30 10:10:00 emergency [facility] [id number] 2023-05-30 08:23:00 2023-05-30 10:10:00 Emergency ER BERNADETTE BELCHER [facility] [id number] [facility] 2022-09-02 19:58:00 2022-09-02 23:35:00 Emergency ER ROMARIO XIONG [facility] [id number] [facility] 2022-07-13 00:00:00 2022-07-13 00:00:00 Outpatient [facility]I [facility] [id number] [facility] 2022-06-15 02:28:00 2022-06-15 03:00:00 Emergency ER GERBER CORREIA [facility] [id number] [facility] 2022-05-18 12:57:00 2022-05-18 14:21:00 Emergency ER ROSANGELA SUERO [facility] [id number] [facility] 2022-04-30 00:00:00 2022-04-30 00:00:00 Outpatient LISTER[facility]MELI [facility] [id number] [facility] 2022-04-24 00:00:00 2022-04-24 00:00:00 Outpatient LISTER[facility]MELI [facility] [id number] [facility] 2022-04-06 00:00:00 2022-04-06 00:00:00 Outpatient [facility]ISTER[facility]ELI [facility] [id number] [facility] 2022-04-06 00:00:00 2022-04-06 00:00:00 Tiffany Carlton, FEDERAL AGENT: [address] [facility] [facility] [address] [place] [address] , Ph. [facility] Worship [facility] [id number] [facility] 2022-04-05 00:00:00 2022-04-05 00:00:00 Outpatient [facility] [id number] [facility] 2021-06-22 14:54:00 2021-06-22 17:09:00 Emergency ER SILVATOÑABUDDHISM [facility] [id number] [facility] 2021-03-25 13:31:00 2021-03-25 14:30:00 Emergency ER NOEL FLORES [facility] [id number] [facility] 2021-03-15 06:07:00 2021-03-15 06:07:00 Outpatient LISTER[facility]ELI [facility] [id number] [facility] 2021-02-24 05:41:00 2021-02-24 05:41:00 Outpatient [facility]ELI [facility] [id number] [facility] 2021-02-24 00:00:00 2021-02-24 00:00:00 Tiffany Carlton, FEDERAL AGENT: [address], [place] [address] , Ph. [facility] Worship [facility] [id number] [facility] 2021-02-20 11:08:00 2021-02-20 11:08:00 Outpatient [facility]ISTER[facility]ELI [facility] [id number] [facility] 2021-02-14 01:32:00 2021-02-14 01:32:00 Outpatient [facility]ISTER[facility]ELI [facility] [id number] [facility] 2021-01-29 14:44:00 2021-01-29 17:11:00 Emergency TR LISA GIBBS [facility] [id number] [facility] 2021-01-25 10:03:00 2021-01-25 10:37:00 Emergency ER MORENOMartiNOEL [facility] [id number] [facility] 2021-01-24 11:52:00 2021-01-24 11:52:00 Outpatient Koudela_A [facility] [id number] [facility] 2021-01-21 11:10:00 2021-01-21 11:10:00 Outpatient Koudela_A MM[facility] [id number] [facility] 2021-01-21 00:00:00 2021-01-21 00:00:00 Cheryl Flor PA-C: [address] [facility] [address], [place] [address] , Ph. [facility] [id number] [facility] 2021-01-04 10:49:00 2021-01-04 10:49:00 Outpatient Zuniga_F [facility] [id number] [facility] 2020-12-31 11:30:00 2020-12-31 11:30:00 Outpatient Zuniga_F MM[facility] [id number] [facility] 2020-12-31 11:30:00 2020-12-31 11:30:00 Outpatient Zuniga_F [facility] [id number] [facility] 2020-12-31 11:30:00 2020-12-31 11:30:00 Outpatient Zuniga_F MM[facility] [id number] [facility] 2020-12-31 00:00:00 2020-12-31 00:00:00 Blanka Carrera MD: [address] [facility] [address], [place] [address] , Ph. [facility] [id number] [facility] 2020-12-25 18:57:00 2020-12-25 22:08:00 Emergency ER LOLY BARAJAS [facility] [id number] [facility] 2020-08-09 12:08:00 2020-08-09 13:11:00 Emergency ER KATIE DICKSON [facility] [id number] [facility] 2020-06-13 01:04:00 2020-06-13 01:04:00 Outpatient Zuniga_F [facility] [id number] [facility] 2020-06-03 05:57:00 2020-06-03 05:57:00 Outpatient Zuniga_F MM[facility] [id number] [facility] 2020-05-09 01:00:00 2020-05-09 01:00:00 Outpatient Zuniga_F [facility] [id number] [facility] 2020-05-07 10:32:00 2020-05-07 10:32:00 Outpatient Zuniga_F [facility] [id number] [facility] 2020-04-15 01:04:00 2020-04-15 01:04:00 Outpatient Zuniga_F [facility] [id number] [facility] 2020-04-13 09:09:00 2020-04-13 09:09:00 Outpatient Zuniga_F [facility] [id number] [facility] 2020-04-12 10:15:00 2020-04-12 10:15:00 Outpatient Zuniga_F [facility] [id number] [facility] 2020-04-12 00:00:00 2020-04-12 00:00:00 Blanka Carrera MD: [address] [place] [address] , Ph. [facility] [id number] [facility] 2020-04-05 04:11:00 2020-04-05 04:11:00 Outpatient Zuniga_F [facility] [id number] [facility] 2020-04-01 10:31:00 2020-04-01 10:31:00 Outpatient BLANKA FLOWERS [facility] [id number] [facility] 2020-03-25 01:04:00 2020-03-25 01:04:00 Outpatient Zuniga_F [facility] [id number] [facility] 2020-03-22 10:45:00 2020-03-22 10:45:00 Outpatient Zuniga_F [facility] [id number] [facility] 2020-02-19 01:04:00 2020-02-19 01:04:00 Outpatient Zuniga_F [facility] [id number] [facility] 2020-02-17 05:23:00 2020-02-17 05:23:00 Outpatient [facility]ISTER[facility]I [facility] [id number] [facility] 2020-02-17 00:00:00 2020-02-17 00:00:00 Tiffany Carlton, FEDERAL AGENT: [address], [place] [address] , Ph. [facility] Worship [facility]EL [facility] [id number] [facility] 2020-02-16 11:50:00 2020-02-16 11:50:00 Outpatient LISTER[facility]ELI [facility] [id number] [facility] 2020-02-11 02:22:00 2020-02-11 02:22:00 Outpatient Zuniga_F [facility] [id number] [facility] 2020-02-10 02:14:00 2020-02-10 02:14:00 Outpatient LISTER[facility]ELI [facility] [id number] [facility] 2020-01-19 12:53:00 2020-01-19 16:27:00 Emergency ER RADHABrittneyHANNAH [facility] [id number] [facility] 2020-01-15 01:05:00 2020-01-15 01:05:00 Outpatient Zuniga_F [facility] [id number] [facility] 2020-01-13 09:13:00 2020-01-13 09:13:00 Outpatient Zuniga_F [facility] [id number] [facility] 2020-01-11 01:03:00 2020-01-11 01:03:00 [id number] [facility] 2020-01-08 11:51:00 2020-01-08 11:51:00 Outpatient Zuniga_F [facility] [id number] [facility] 2020-01-07 03:29:00 2020-01-07 03:29:00 Outpatient Zuniga_F [facility] [id number] [facility] 2020-01-07 00:00:00 2020-01-07 00:00:00 Blanka Carrera MD: [address] [place] [phone] , Ph. [facility] [id number] [facility] 2020-01-06 06:02:00 2020-01-06 06:02:00 [facility] [id number] [facility] 2019-12-23 11:05:00 2019-12-23 11:05:00 [facility] [id number] [facility] 2019-11-18 12:59:00 2019-11-18 12:59:00 [facility] [id number] [facility] 2019-11-17 10:40:00 2019-11-17 10:40:00 Outpatient Zuniga_F [facility] [id number] [facility] 2019-10-13 12:26:00 2019-10-13 12:26:00 [facility] [id number] [facility] 2019-10-09 04:28:00 2019-10-09 04:28:00 Outpatient Zuniga_F [facility] [id number] [facility] 2019-10-09 00:00:00 2019-10-09 00:00:00 Chano Henry MD: [address], [place] [address] , Ph. [phone] [facility] [id number] [facility] 2019-10-08 04:39:00 2019-10-08 04:39:00 Outpatient Zuniga_F MMG [facility] [id number] [facility] 2019-10-07 07:35:00 2019-10-07 07:35:00 Outpatient Zuniga_F MM[facility] [id number] [facility] 2019-10-07 00:00:00 2019-10-07 00:00:00 Blanka Carrera MD: [address] [facility] [address], [place] [address] , Ph. [facility] [id number] [facility] 2019-09-25 03:59:00 2019-09-25 03:59:00 Outpatient Zuniga_F MMG [facility] [id number] [facility] 2019-09-24 06:22:00 2019-09-24 06:22:00 Outpatient CHANO VELAZQUEZ [facility] [id number] [facility] 2019-09-17 11:08:00 2019-09-17 11:08:00 Outpatient Zuniga_F MMG [facility] [id number] [facility] 2019-09-16 12:03:00 2019-09-16 12:03:00 Outpatient Zuniga_F MM[facility] [id number] [facility] 2019-09-16 00:00:00 2019-09-16 00:00:00 Chano Henry MD: [address] [facility] [address], [place] [address] , Ph. [phone] [facility] [id number] [facility] 2019-09-11 19:57:00 2019-09-11 23:00:00 Emergency ER RAMAN HARGROVE [facility] [id number] [facility] 2019-09-11 09:13:00 2019-09-11 09:13:00 [facility] [id number] [facility] 2019-09-10 07:30:00 2019-09-10 07:30:00 Outpatient Zuniga_F [facility] [id number] [facility] 2019-09-10 00:00:00 2019-09-10 00:00:00 Blanka Carrera MD: [address] [place] [address] [address], [place] [address] , Ph. G [facility] [id number] [facility] 2019-08-25 04:23:00 2019-08-25 04:23:00 Outpatient Zuniga_F [facility] [id number] [facility] 2019-07-02 19:18:00 2019-07-02 20:17:00 Emergency ER ALFREDO YANES [facility] [id number] [facility] 2019-06-17 12:47:00 2019-06-17 14:04:00 Emergency ER RAMAN HARGROVE [facility] [id number] [facility] 2019-05-18 18:05:00 2019-05-18 19:41:00 Emergency ER HANNAH DEY [facility] [id number] [facility] 2019 21:09:00 2019 23:45:00 Emergency ER RAMAN HARGROVE [facility] [id number] [facility] 2019-02-18 23:54:00 2019-02-19 01:28:00 Emergency ER MORENONICKOLAS KiddRony [facility] [id number] [facility] 2019-01-28 19:42:00 2019-01-29 01:02:00 Emergency ER VITALY ROCHA [facility] [id number] [facility] 2017-05-25 14:37:00 2017-05-25 16:22:00 Emergency ER NOEL FLORES [facility] [id number] [facility] 2017-05-10 22:50:00 2017-05-11 01:15:00 Emergency ER RAMAN HARGROVE [facility] [id number] [facility] 2017-03-26 03:18:00 2017-03-26 05:35:00 Emergency ER BARAK ARREDONDO [facility] [id number] [facility] 2017-03-01 19:04:00 2017-03-01 21:51:00 Emergency ER RAMAN HARGROVE [facility] [id number] [facility] 2017-01-13 11:01:00 2017-01-13 12:28:00 Emergency ER NOEL FLORES [facility] [id number] [facility] 2016-04-28 16:46:00 2016-04-28 18:23:00 Emergency ER CRISTIAN, CLEMENT [facility] [id number] [facility] 2016-01-22 00:38:00 2016-01-22 03:02:00 Emergency ER CRISTIAN CLEMENT [facility] [id number] [facility] 2015-12-06 23:09:00 2015-12-07 00:36:00 Emergency ER ALEXIA GUILLEN [facility] [id number] [facility] 2015-11-11 20:01:00 2015-11-11 22:02:00 Emergency ER UGORBRITTANY, CLEMENT [facility] [id number] [facility] 2015-09-11 22:03:00 2015-09-11 23:29:00 Emergency ER ALEXIA GUILLEN [facility] [id number] [facility] 2015-08-21 22:14:00 2015-08-22 02:45:00 Emergency ER OLIVIA PABLO [facility] [id number] [facility] 2015-05-03 10:57:00 2015-05-03 11:40:00 Emergency ER NOEL FLORES [facility] [id number] [facility] 2015-03-20 00:02:00 2015-03-20 03:22:00 Emergency ER DALTON KUMARI [facility] [id number] [facility] 2014-09-06 00:08:00 2014-09-06 03:36:00 Emergency ER ALEXIA GUILLEN [facility] [id number] [facility] 2014-04-14 23:52:00 2014-04-15 03:27:00 Emergency ER UGMARYELLEN, CLEMENT [facility] [id number] [facility] 2014-03-11 16:42:00 2014-03-11 20:43:00 Emergency ER UGORJI, CLEMENT [facility] [id number] [facility] 2014-03-08 19:08:00 2014-03-08 20:20:00 Emergency ER SURYAADBIRDIESUNNY [facility] [id number] [facility] 2014-01-02 13:30:00 2014-01-02 16:54:00 Emergency ER CLAUDE OBIDIKE [facility] [id number] [facility] 2013-04-12 18:30:00 2013-04-12 21:31:00 Emergency ER UGORBRITTANY, CLEMENT [facility] [id number] [facility] 2007-12-19 06:58:00 2007-12-19 09:50:00 Emergency ER NITA TORO [facility] [id number] [facility] Results Test Description Test Time Test Comments Results Result Co mments Source [facility] [Presence] in Serum by RPR 2022-04-07 00:00:00* Test Item Value Reference Range Interpretation Comme nts Reagin Ab [Presence] in Seru m by RPR (test code = 93045-2) non reactive non reactive [facility] and 2 tests - Meaningful Use [id number] 00:00:00* Test Item Value Reference Range Interpretation Comme nts HIV 1+2 Ab+HIV1 p24 Ag [Presence] in Serum or Plasma by Immunoassay (test code = 35991-0) non reactive non reactive [facility]atitis B virus surface Ag [Presence] in Serum or Plasma by [id number] 00:00:00* Test Item Value Reference Range Interpretation Comme nts Hepatitis B virus surface Ag [Presence] in Serum or Plasma by Immunoassay (test code = 5196-1) negative negative [facility] Differential panel - Blood 2020-04-01 09:42:00* Test Item Value Reference Range Interpretation Comme nts white blood count (test code = white blood count) 8.8 K/uL 4.0-11.5 red blood count (test code = red blood count) 4.27 M/uL 3.80-5.20 hemoglobin (test code = hemoglobin) 11.9 g/dL 10.5-15.7 hematocrit (test code = hematocrit) 36.5 % 34.0-50.0 MCV [Entitic volume] (test c ode = 19059-8) 85.5 fL 86-100 L mean corpuscular hemoglobin [...] neutrophils/100 leukocytes in Blood (test code = 34169-5) 56.8 % 44.4-80.1 Immature granulocytes [#/vol ume] in Blood (test code = 80351-4) 0.0 K/uL 0.0-0.03 H lymphocyte% (test code = lymphocyte%) 33.1 % 10.0-50.0 mono % (test code = mono %) 6.6 % 3.6-12.0 eos % (test code = eos %) 2.3 % 0.0-5.4 Basophils/100 leukocytes in Unspecified specimen (test code = 64939-7) 0.7 % 0.1-1.2 Band form neutrophils [#/vol ume] in Blood (test code = 50971-0) 5.00 K/uL 1.56-6.13 Lymphocytes [#/volume] in Unspecified specimen by Automated count (test code = 46484-7) 2.9 K/uL 1.18-3.74 mono # (test code = mono #) 0.58 K/uL 0.24-0.86 eos # (test code = eos #) 0.20 K/uL 0.04-0.36 basophil # (test code = baso dany #) 0.06 K/uL 0.01-0.08 NRBC% (test code = NRBC%) 0 /100 WBC 0-0.2 NRBC# (test code = NRBC#) 0 K/uL [facility], method unspecified - [id number] 09:42:00NeutrophilsBandLymphocyteAtypical LymphMonocyteEosinophilBasophilMetamyelocyteMyelocytePromyelocyteBlastsNucleated Red Blood CellAbs Neutrophil Count (Man)Abs Lymph Count (Man)Abs Monocyte Count (Man)Abs Eosinophil Count (Man)Abs Basophil Count (Man)Platelet EstimatePlatelet MorphologyAnisocytosisMacrocytosisStomatocyteToxic GranulationToxic VacuolationSmudge CellsGiant PlateletsSickle CellsDifferential comment-PMaCentral Mississippi Residential CenterHemoglobin A1c [Mass/volume] in [id number] 09:42:00* Test Item Value Reference Range Interpretation Comme [facility] Hemoglobin A1c [Mass/volume] in Blood (test code = 22939-4) 6.4 % 4.0-6.0 H [facility] CenterComprehensive metabolic 2000 panel - Serum or Plasma [...] code = 6768-6) 180 U/L 35-105 H [facility] CenterLipid 1996 panel - Serum or [id number] 09:42:00* Test Item Value Reference Range Interpretation [...] (test code = cholesterol risk ratio) 5.162 [facility] CenterReagin Ab [Presence] in Serum by [id number] 00:00:00* Test Item Value Reference Range Interpretation Comme [facility] Reagin Ab [Presence] in Seru m by RPR (test code = 83649-8) non reactive non reactive [facility] Ab+HIV1 p24 Ag [Presence] in Serum or Plasma by [id number] 00:00:00* Test Item Value Reference Range Interpretation Comme nts HIV 1+2 Ab+HIV1 p24 Ag [Presence] in Serum or Plasma by Immunoassay (test code = 90906-7) non reactive non reactive [facility] TempleHepatitis B virus surface Ag [Presence] in Serum or Plasma by [id number] 00:00:00* Test Item Value Reference Range Interpretation Comme [facility] Hepatitis B virus surface Ag [Presence] in Serum or Plasma by Immunoassay (test code = 5196-1) negative [facility] [id number] 05:33:00* Test Item Value Reference Range Interpretation Comme [facility] Surgical pathology study (test code = 48141-3) see separate pathology report. [facility] W Auto Differential panel - [id number] 11:30:00 * Test Item Value Reference Range Interpretation Comme nts white blood count (test code = white blood count) 9.7 K/uL 4.0-11.5 red blood count (test code = red blood count) 4.85 M/uL 3.80-5.20 hemoglobin (test code = hemoglobin) 14.0 g/dL 10.5-15.7 hematocrit (test code = hematocrit) 41.0 % 34.0-50.0 MCV [Entitic volume] (test c ode = 83003-9) 84.5 fL 86-100 L mean corpuscular hemoglobin [...] neutrophils/100 leukocytes in Blood (test code = 33569-8) 65.5 % 44.4-80.1 Immature granulocytes [#/vol ume] in Blood (test code = 30066-0) 0.1 K/uL 0.0-0.03 H lymphocyte% (test code = lymphocyte%) 25.6 % 10.0-50.0 mono % (test code = mono %) 5.8 % 3.6-12.0 eos % (test code = eos %) 2.2 % 0.0-5.4 Basophils/100 leukocytes in Unspecified specimen (test code = 23014-6) 0.4 % 0.1-1.2 Band form neutrophils [#/vol ume] in Blood (test code = 12685-5) 6.37 K/uL 1.56-6.13 H Lymphocytes [#/volume] in Unspecified specimen by Automated count (test code = 08491-2) 2.5 K/uL 1.18-3.74 mono # (test code = mono #) 0.56 K/uL 0.24-0.86 eos # (test code = eos #) 0.21 K/uL 0.04-0.36 basophil # (test code = baso dany #) 0.04 K/uL 0.01-0.08 NRBC% (test code = NRBC%) 0 /100 WBC 0-0.2 NRBC# (test code = NRBC#) 0 K/uL [facility]Differential panel, method unspecified - [id number] 11:30:00NeutrophilsBandLymphocyteAtypical LymphMonocyteEosinophilMetamyelocytePlatelet EstimatePlatelet MorphologyToxic VacuolationB[facility] Medical CenterHemoglobin A1c [Mass/volume] in Blood 2019-09-22 11:30:00* Test Item Value Reference Range Interpretation Comme nts Hemoglobin A1c [Mass/volume] in Blood (test code = 76421-7) 9.0 % 4.0-6.0 H [facility] CenterChoriogonadotropin ( test) [Presence] in Serum or [id number] 11:30:00* Test Item Value Reference Range Interpretation Comme nts Choriogonadotropin.beta subu nit ( test) [Presence] in Serum or Plasma (test code = 2110-5) negative neg [facility] CenterComprehensive metabolic 2000 panel - Serum or Plasma [...] code = 6768-6) 168 U/L 35-105 H [facility] CenterPrealbumin [Mass/volume] in Serum or [id number] 11:30:00* Test Item Value Reference Range Interpretation Comme nts pre-albumin (test code = pre-albumin) 23.0 mg/dL 20-40 [facility] W Auto Differential panel - [id number] 06:11:00 * Test Item Value Reference Range Interpretation Comme nts white blood count (test code = white blood count) 10.6 K/uL 4.0-11.5 red blood count (test code = red blood count) 5.00 M/uL 3.80-5.20 hemoglobin (test code = hemoglobin) 14.5 g/dL 10.5-15.7 hematocrit (test code = hematocrit) 42.1 % 34.0-50.0 MCV [Entitic volume] (test c ode = 46457-6) 84.2 fL 86-100 L mean corpuscular hemoglobin [...] neutrophils/100 leukocytes in Blood (test code = 15368-4) 56.6 % 44.4-80.1 Immature granulocytes [#/vol ume] in Blood (test code = 40919-5) 0.1 K/uL 0.0-0.03 H lymphocyte% (test code = lymphocyte%) 33.3 % 10.0-50.0 mono % (test code = mono %) 6.5 % 3.6-12.0 eos % (test code = eos %) 2.5 % 0.0-5.4 Basophils/100 leukocytes in Unspecified specimen (test code = 59717-6) 0.4 % 0.1-1.2 Band form neutrophils [#/vol ume] in Blood (test code = 26688-7) 6.02 K/uL 1.56-6.13 Lymphocytes [#/volume] in Unspecified specimen by Automated count (test code = 41431-0) 3.5 K/uL 1.18-3.74 mono # (test code = mono #) 0.69 K/uL 0.24-0.86 eos # (test code = eos #) 0.26 K/uL 0.04-0.36 basophil # (test code = baso dany #) 0.04 K/uL 0.01-0.08 NRBC% (test code = NRBC%) 0 /100 WBC 0-0.2 NRBC# (test code = NRBC#) 0 K/uL [facility] CenterDifferential panel, method unspecified - [id number] 06:11:00NeutrophilsBandLymphocyteAtypical LymphMonocyteEosinophilBasophilNucleated Red Blood CellPlatelet EstimatePlatelet MorphologyHypochromasiaPoikilocytosisAnisocytosisMacrocytosisHowell-jolly BodiesToxic GranulationHypersegmented PolysToxic VacuolationDifferential comment-PMataMississippi Baptist Medical CenterPT/[id number] 06:11:00* Test Item Value Reference Range Interpretation Comme nts prothrombin time (test code = prothrombin time) 10.3 seconds 10.3-12.3 INR in Blood by Coagulation assay (test code = 98503-5) 0.95 [facility] Centerpartial thromboplastin [id number] 06:11:00* Test Item Value Reference Range Interpretation Comme nts INR in Blood by Coagulation assay (test code = 21947-3) 28.6 seconds 22.5-37.0 [facility] CenterComprehensive metabolic 2000 panel - Serum or Plasma [...] code = 6768-6) 156 U/L 35-105 H [facility] CenterNatriuretic peptide.B prohormone N-Terminal [Mass/volume] in Serum or [id number] 06:11:00* Test Item Value Reference Range Interpretation Comme nts N-term pro natriuretic pepti de (test code = N-term pro natriuretic peptide) 15 pg/mL 0-125 [facility] CenterCreatine kinase [Enzymatic activity/volume] in Serum or [id number] 06:11:00* Test Item Value Reference Range Interpretation Comme nts creatine kinase (test code = creatine kinase) 71 U/L 20-180 [facility] CenterTroponin I.cardiac [Mass/volume] in [id number] 06:11:00* Test Item Value Reference Range Interpretation Comme [facility] cardiac troponin I (test cod e = cardiac troponin I) <0.30 0.0-0.5 [facility] CenterCreatine kinase.MB [Mass/volume] in Serum or Plasma 2019-09-11 06:11:00* Test Item Value Reference Range Interpretation Comme [facility] Creatine kinase.MB [Mass/vol ume] in Serum or Plasma by Immunoassay (test code = 67869-2) <1.0 0.0-3.6 [facility]
[2024-01-30] MEDS ORDERED: KETOROLAC 30 MG/ML INJ ONE (16:18)
--- NOTE | 2024-01-30 17:54 | RAD REPORT ---
EXAMINATION: XR Ankle Left 3 View CLINICAL INDICATION: Female, 33 years old. [facility] MA[facility] PA[facility] Bed Name: 9 TECHNIQUE: 3 view radiographs of the left ankle were obtained. COMPARISON: No prior exam. FINDINGS: No bone or joint abnormality seen. Alignment is maintained. No suspicious osseous lesion. S oft tissues are unremarkable. IMPRESSION: No acute or significant abnormalities.
--- NOTE | 2024-01-30 18:06 | EDPHYS ---
Physician Documentation [facility] Name: Anisha Navarro Age: 33 yrs Sex: Female : 1990 Arrival Date: 01/30/2024 Time: 15:51 Bed 9 Private MD: ED Physician Monik Stack HPI: 01/29 18:04 This 33 yrs old Female presents to ER via Ambulatory with complaints of left kb ankle pain. 18:04 Patient is a 33-year-old female who presents for left ankle pain that started 2 weeks kb ago. States she sprained her ankle and was seen here at that time, diagnosed with a sprain, put in a walking boot and told to follow-up with Ortho. States has been unable to get in touch with an orthopedist and is still having pain so that is what brought her in today.. Historical: - Allergies: 16:05 Bactrim; cm10 16:05 Tessalon Perles; cm10 16:05 tramadol; cm10 - PMHx: 16:05 diabetes mellitus; Hypertensive disorder; cm10 - PSHx: 16:05 carpal tunnel; Cholecystectomy; cm10 - Immunization history:: Adult Immunizations up to date. - Infectious Disease History:: Denies. - Social history:: Smoking status: Patient denies any tobacco usage or history of. ROS: 17:57 Constitutional: As per HPI kb Exam: 17:57 Constitutional: This is a well developed, well nourished patient who is awake, alert, kb and in no acute distress. Head/Face: Normocephalic, atraumatic. ENT: Moist Mucous membranes Cardiovascular: Regular rate Respiratory: Respirations even and unlabored. No increased work of breathing. Talking in full sentences Skin: Warm, dry with normal turgor. Normal color. Neuro: Awake and alert, GCS 15, oriented to person, place, time, and situation. 17:57 Musculoskeletal/extremity: Extremities: grossly normal except: noted in the left lateral ankle: pain, tenderness, ROM: limited active range of motion due to pain, in the left lateral ankle, Circulation is intact in all extremities. Sensation intact. Weight bearing: able to fully bear weight, Vital Signs: 16:04 BP 158 / 89; Pulse 89; Resp 18; Temp 97.1; Pulse Ox 100% on R/A; Weight 94.35 kg; cm10 Height 5 ft. 2 in. ; Pain 10/10; 16:42 BP 137 / 88; Pulse 70; Resp 17; Pulse Ox 99% on R/A; rs5 18:20 BP 128 / 74; Pulse 71; Resp 17; Pulse Ox 99% on R/A; rs5 16:04 Body Mass Index 38.04 (94.35 kg, 157.48 cm) cm10 16:04 Pain Scale: Adult cm10 MDM: 15:56 Medical Screening Exam initiated kb 18:03 Differential diagnosis: sprain, fracture. Data reviewed: vital signs, nurses notes. kb Counseling: I had a detailed discussion with the patient and/or guardian regarding the historical points, exam findings, and any diagnostic results supporting the discharge/admit diagnosis, radiology results, the need for outpatient follow up, a orthopedic surgeon, to return to the emergency department if symptoms worsen or persist or if there are any questions or concerns that arise at home. 01/29 16:12 Order name: Ankle Left 3 View XRAY; Complete Time: 17:57 kb Administered Medications: 16:20 Drug: Ketorolac IM 30 mg IM once Route: IM; Site: left deltoid; rs5 17:00 Follow up: Response: No adverse reaction; Pain is decreased rs5 Disposition Summary: 01/30/24 18:05 Discharge Ordered Notes: Location: Home kb Condition: Stable kb Diagnosis - Pain in left ankle and joints of left foot kb Followup: kb - With: Emergency Department - When: As needed - Reason: Worsening of condition Followup: kb - With: Private Physician - When: 2 - 3 days - Reason: Recheck today's complaints, Continuance of care, Re-evaluation by your physician Discharge Instructions: - Discharge Summary Sheet kb - Ankle Pain kb Forms: - Medication Reconciliation Form kb - Antibiotic Education kb - Prescription Opioid Use kb - Patient Portal Instructions kb - Leadership Thank You Letter kb Signatures: Dispatcher [employer] Angelica Graham FNP-C FNP-Ckb Sotelo, Ricky, RN RN rs5 Mary Martinez RN RN cm10
--- NOTE | 2024-01-30 18:06 | ER ---
Nurse's Notes [facility] Name: Anisha Navarro Age: 33 yrs Sex: Female : 1990 Arrival Date: 01/30/2024 Time: 15:51 Bed 9 Private MD: Diagnosis: Pain in left ankle and joints of left foot Presentation: 01/29 16:04 Chief complaint: Patient states: Left ankle pain. Pt states that she sprained her ankle cm10 2 weeks ago and it is not getting better. PT states that she hasn't been able to follow-up with ortho. Coronavirus screen: Client denies travel out of the [place] in the last 14 days. Ebola Screen: Patient denies travel to an Ebola-affected area in the 21 days before illness onset. No symptoms or risks identified at this time. Initial Sepsis Screen: Does the patient meet any 2 criteria? No. Patient's initial sepsis screen is negative. Does the patient have a suspected source of infection? No. Patient's initial sepsis screen is negative. Risk Assessment: Do you want to hurt yourself or someone else? Patient reports no desire to harm self or others. Onset of symptoms was January 30, 2024. 16:04 Method Of Arrival: Ambulatory cm10 16:04 Acuity: NIKKI 4 cm10 Triage Assessment: 16:05 General: Appears in no apparent distress. uncomfortable, Behavior is calm, cooperative. cm10 Pain: Complains of pain in Left ankle. Neuro: No deficits noted. Level of Consciousness is awake, alert, obeys commands, Oriented to person, place, time, situation, Appropriate for age. Respiratory: No deficits noted. Airway is patent Respiratory effort is even, unlabored, Respiratory pattern is regular, symmetrical. Musculoskeletal: No deficits noted. Reports pain in Left ankle. Historical: - Allergies: 16:05 Bactrim; cm10 16:05 Tessalon Perles; cm10 16:05 tramadol; cm10 - PMHx: 16:05 diabetes mellitus; Hypertensive disorder; cm10 - PSHx: 16:05 carpal tunnel; Cholecystectomy; cm10 - Immunization history:: Adult Immunizations up to date. - Infectious Disease History:: Denies. - Social history:: Smoking status: Patient denies any tobacco usage or history of. Screenin:07 [facility] ED Fall Risk Assessment (Adult) History of falling in the last 3 months, rs5 including since admission Yes- single mechanical fall (1 pt) Confusion or Disorientation No (0 pts) Intoxicated or Sedated No (0 pts) Impaired Gait Yes (1 pt) Mobility Assist Device Used Yes (1 pt) Altered Elimination No (0 pt) Score/Fall Risk Level 3 or more points = High Risk Oriented to surroundings, Maintained a safe environment. 16:07 Abuse screen: Denies threats or abuse. Nutritional screening: No deficits noted. rs5 Tuberculosis screening: No symptoms or risk factors identified. Assessment: 16:07 General: Appears in no apparent distress. uncomfortable, Behavior is calm, cooperative. rs5 Pain: Complains of pain in left ankle Pain currently is 6 out of 10 on a pain scale. Quality of pain is described as aching, Is continuous. 16:07 Neuro: Level of Consciousness is awake, alert, obeys commands, Oriented to person, rs5 place, time, situation. Cardiovascular: Patient's skin is warm and dry. Respiratory: Airway is patent Respiratory effort is even, unlabored, Respiratory pattern is regular, symmetrical. GI: No signs and/or symptoms were reported involving the gastrointestinal system. : No signs and/or symptoms were reported regarding the genitourinary system. EENT: No signs and/or symptoms were reported regarding the EENT system. Derm: Skin is intact, Skin is pink, warm \T\ dry. Musculoskeletal: Range of motion: limited in left ankle. 16:41 Reassessment: Patient and/or family updated on plan of care and expected duration. Pain rs5 level reassessed. Patient is alert, oriented x 3, equal unlabored respirations, skin warm/dry/pink. 17:35 Reassessment: Patient and/or family updated on plan of care and expected duration. Pain rs5 level reassessed. Patient is alert, oriented x 3, equal unlabored respirations, skin warm/dry/pink. 18:15 Reassessment: Patient and/or family updated on plan of care and expected duration. Pain rs5 level reassessed. Patient is alert, oriented x 3, equal unlabored respirations, skin warm/dry/pink. Vital Signs: 16:04 BP 158 / 89; Pulse 89; Resp 18; Temp 97.1; Pulse Ox 100% on R/A; Weight 94.35 kg; cm10 Height 5 ft. 2 in. ; Pain 10/10; 16:42 BP 137 / 88; Pulse 70; Resp 17; Pulse Ox 99% on R/A; rs5 18:20 BP 128 / 74; Pulse 71; Resp 17; Pulse Ox 99% on R/A; rs5 16:04 Body Mass Index 38.04 (94.35 kg, 157.48 cm) cm10 16:04 Pain Scale: Adult cm10 ED Course: 15:54 Patient arrived in ED. im 15:55 Angelica Manning [facility]-C [facility] 15:55 Monik Stack MD is Attending Physician. kb 16:05 Triage completed. cm10 16:06 Arm band placed on right wrist. Patient placed in waiting room. cm10 16:07 Patient has correct armband on for positive identification. Placed in gown. Bed in low rs5 position. Call light in reach. Side rails up X2. 16:07 No provider procedures requiring assistance completed. rs5 16:15 Rafat Obrien, RN is Primary Nurse. rs5 17:16 Ankle Left 3 View XRAY In Process Unspecified. EDMS 18:20 Patient did not have IV access during this emergency room visit. rs5 Administered Medications: 16:20 Drug: Ketorolac IM 30 mg IM once Route: IM; Site: left deltoid; rs5 17:00 Follow up: Response: No adverse reaction; Pain is decreased rs5 Medication: 16:42 VIS not applicable for this client. rs5 Outcome: 18:05 Discharge ordered by MD. kb 18:20 Discharged to home ambulatory, rs5 18:20 Condition: stable rs5 18:20 Discharge instructions given to patient, family, Instructed on discharge instructions, follow up and referral plans. Demonstrated understanding of instructions, follow-up care, 18:21 Patient left the ED. rs5 Signatures: Dispatcher [employer] EDTN Angelica Manning FNP-C FNP-Rafat Kang, RN RN rs5 Mecca Junior Clarissa RN RN cm10
[2024-01-30 18:47] VITALS: TEMP 97.1
[2024-01-30 18:48] VITALS: BP 137/88; O2SAT 99
== END 2024-01-30 18:21 | disposition home or self-care (01) ==
LOC: ER 15:51
DX: M25.572 Pain in left ankle and joints of left foot (principal)

== ENCOUNTER 2024-06-15 09:23 | Emergency (ER) | payer SELFPAY ==
--- OUTSIDE RECORDS SUMMARY | 2024-06-15 09:28 | XMS REPORT | Continuity of Care Document ---
Author Name Unknown Address [address] [facility] [address]. [address] [place] [address] [facility] Address [address] [facility]. [address] [place] [address] Support Name Relationship Address Phone MD RAMAN HARGROVE Emergency Provider [address] [place] [address] VIKKI GRANT Primary Care Physician [address] [place] [address] SYLVESTER CABEZAS Next of Kin [address] [address] MD ALFREDO YANES Emergency Provider [address] [place] [address] MD BLANKA CARRERA Primary Care Physician [address] [place] [address] MD HANNAH DEY Emergency Provider [address] [place] [address] MD KATIE DICKSON Emergency Provider [address] [place] [address] MD LOLY BARAJAS Emergency Provider [address] [place] [address] MD NOEL FLORES Emergency Provider [address] [place] [address] MD ADAM SILVA Emergency Provider [address] [place] [address] MD Bernadette Belcher Emergency Provider [address] [place] [address] JAAD SR Family Member [address] [address] NAZARIO CABEZAS Guarantor [address] [place] [address] MD JESUS LI Emergency Provider [address] [place] [address] SYLVESTER CABEZAS Next of Kin [address] [place] [address] JADA SR Family Member [id number] [place] [address] Care Team Providers 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 Role Phone ROSANGELA SUERO Attending Clinician UnavailJESUS Bazan Attending Clinician Unavailab BERNADETTE Conrad Attending Clinician Unavailab ROMARIO Palacios Attending Clinician Unavailab le DAVID Attending Clinician Unavailable GERBER CORREIA Attending Clinician Unavailable ADAM SILVA Attending Clinician Unavailable NOEL FLORES Attending Clinician Unavailable LISA GIBBS Attending Clinician Unavailable Koudela_A Attending Clinician Unavailable Zuniga_F Attending Clinician Unavailable LOLY BARAJAS Attending Clinician Unavailab KATIE Doran Attending Clinician Unavailable BLANKA CARRERA Attending Clinician Unavailab HANNAH Rodriguez Attending Clinician Unavailable CHANO HENRY Attending Clinician Unavaila RAMAN Vigil Attending Clinician Unavail able ALFREDO YANES Attending Clinician Unavailable VITALY ROCHA Attending Clinician Unavailabl e BARAK ARREDONDO Attending Clinician Unavailable TOÑO FOSTER Attending Clinician Unavailab ALEXIA Hess Attending Clinician Unavailable OLIVIA PABLO Attending Clinician Unavailable DALTON KUMARI Attending Clinician Unavailable SUNNY ARCE Attending Clinician Unavailable NITA TORO Attending Clinician Unavailabl e JOMAR_DOMINIQUE Admitting Clinician Unavailable Koudela_A Admitting Clinician Unavailable Zuniga_F Admitting Clinician Unavailable Payers Payer Name Policy Type Policy Number Effective Date Expirati on Date Source [place] [place]MEDICAID[place] [id number] 2021 00:00:00 [place] [facility] (INSTITUTIONAL) [id number] [place] [id number] Problems Condition Name Condition Details Condition Category [...] Benzonat ate Allergy to substanc e [facility] Bactrim Allergy to substanc e [facility] Tessalon Perles Allergy to substanc e Active Chest pain [facility] Social History Smoking Status Start Date Stop Date Source Former Smoker [facility] Never Smoker [facility] Medications Ordered Medication Name [...] day by oral route for 90 days. [facility] metformin 500 mg tablet Take 1 tablet twice a day by oral route for 30 days. metformin 500 mg tablet Take 1 tablet twice a day by oral route for 30 days. No metformin 500 mg tablet Take 1 tablet twice a day by oral route for 30 days. [facility] Zithromax Z-Stan[facility] 250 mg [...] Vital Name Observation Time Observation Value Comments Rony tamayo Body Weight 2024-01-23 00:00:00 210 [lb_av] [facility] BP Systolic 2024-01-23 00:00:00 139 mm[Hg] [facility] BP Diastolic 2024-01-23 00:00:00 96 mm[Hg] [facility] Height 2024-01-23 00:00:00 62 [in_i] [facility] BMI (Body Mass Index) 2024-01-23 00:00:00 38.4 kg/m2 [facility] Height 2022-04-06 00:00:00 62 [in_i] [facility] BMI (Body Mass Index) 2022-04-06 00:00:00 40.4 kg/m2 [place] [facility] Body Weight 2022-04-06 00:00:00 221 [lb_av] [facility] BP Diastolic 2021-02-24 00:00:00 86 mm[Hg] [facility] Height 2021-02-24 00:00:00 62 [in_i] [facility] BMI (Body Mass Index) 2021-02-24 00:00:00 41.5 kg/m2 [facility] BP Systolic 2021-02-24 00:00:00 124 mm[Hg] [facility] Body Weight 2021-02-24 00:00:00 227 [lb_av] [facility] BP Diastolic 2021-01-21 00:00:00 87 mm[Hg] [facility] Height 2021-01-21 00:00:00 62 [in_i] [facility] BMI (Body Mass Index) 2021-01-21 00:00:00 41.2 kg/m2 [facility] BP Systolic 2021-01-21 00:00:00 121 mm[Hg] [facility] Body Weight 2021-01-21 00:00:00 3600 [oz_av] [facility] BP Diastolic 2020-12-31 00:00:00 80 mm[Hg] [facility] Height 2020-12-31 00:00:00 62 [in_i] [facility] BMI (Body Mass Index) 2020-12-31 00:00:00 41 kg/m2 [facility] BP Systolic 2020-12-31 00:00:00 118 mm[Hg] [facility] Body Weight 2020-12-31 00:00:00 3585 [oz_av] [facility] Height 2020-04-12 00:00:00 62 [in_i] [facility] BMI (Body Mass Index) 2020-04-12 00:00:00 41.3 kg/m2 [facility] Body Weight 2020-04-12 00:00:00 3616 [oz_av] [facility] Height 2020-02-17 00:00:00 62 [in_i] [facility] BMI (Body Mass Index) 2020-02-17 00:00:00 40.1 kg/m2 [place] [facility] Body Weight 2020-02-17 00:00:00 219 [lb_av] [facility] BP Diastolic 2020-01-07 00:00:00 96 mm[Hg] [facility] Height 2020-01-07 00:00:00 62 [in_i] [facility] BMI (Body Mass Index) 2020-01-07 00:00:00 41.4 kg/m2 [facility] BP Systolic 2020-01-07 00:00:00 131 mm[Hg] [facility] Body Weight 2020-01-07 00:00:00 3622 [oz_av] [facility] BP Diastolic 2019-10-09 00:00:00 83 mm[Hg] [facility] Height 2019-10-09 00:00:00 62 [in_i] [facility] BMI (Body Mass Index) 2019-10-09 00:00:00 42.3 kg/m2 [facility] BP Systolic 2019-10-09 00:00:00 130 mm[Hg] [facility] Body Weight 2019-10-09 00:00:00 231 [lb_av] [facility] BP Diastolic 2019-10-07 00:00:00 110 mm[Hg] [facility] Height 2019-10-07 00:00:00 62 [in_i] [facility] BMI (Body Mass Index) 2019-10-07 00:00:00 42.3 kg/m2 [facility] BP Systolic 2019-10-07 00:00:00 148 mm[Hg] [facility] Body Weight 2019-10-07 00:00:00 3703 [oz_av] [facility] BP Diastolic 2019-09-16 00:00:00 98 mm[Hg] [facility] Height 2019-09-16 00:00:00 62 [in_i] [facility] BMI (Body Mass Index) 2019-09-16 00:00:00 43.2 kg/m2 [facility] BP Systolic 2019-09-16 00:00:00 138 mm[Hg] [facility] Body Weight 2019-09-16 00:00:00 236 [lb_av] [facility] BP Diastolic 2019-09-10 00:00:00 101 mm[Hg] [facility] Height 2019-09-10 00:00:00 62 [in_i] [facility] BMI (Body Mass Index) 2019-09-10 00:00:00 43.2 kg/m2 [facility] BP Systolic 2019-09-10 00:00:00 143 mm[Hg] [facility] Body Weight 2019-09-10 00:00:00 3776 [oz_av] [facility] Procedures Procedure Date / Time Performed Performing Clinician Source Esophagogastroduodenoscopy 2019-09-24 00:00:00 [facility] Carpal Tunnel Surgery [facility] [place] [facility] Cholecystectomy [facility] Endoscopy of Upper Gastrointestinal Tract [facility] [place] [facility] Hand Surgery [facility] Plan of Care Planned Activity Planned Date Details Comments Source Diagnostic Test Pending 2021-01-21 00:00:00 rapid strep group A, throat [code = rapid strep group A, throat] [facility] Encounters Start Date/Time End Date/Time Encounter Type Admission Type Attending Clinicians Care Facility Care Department Encounter ID Source 2024-04-10 17:34:00 2024-04-10 20:02:00 Emergency ER ROSANGELA SUERO [facility] [id number] [facility] 2024-01-23 00:00:00 2024-01-23 00:00:00 Dominique Carlton, ROOM SERVICE WAITER: [address], [place] [address] , [address] [facility] APPRENTICE COSMETOLOGIST [id number] [facility] 2023-08-02 08:07:00 2023-08-02 11:00:[address] [facility] [id number] 2023-08-02 08:07:00 2023-08-02 11:00:00 Emergency ER JESUS LI [facility] [id number] [facility] 2023-05-30 08:23:00 2023-05-30 10:10:[address] [facility] [id number] 2023-05-30 08:23:00 2023-05-30 10:10:00 Emergency ER BERNADETTE BELCHER [facility] [id number] [facility] 2022-09-02 19:58:00 2022-09-02 23:35:00 Emergency ER ROMARIO XIONG [facility] [id number] [facility] 2022-07-13 00:00:00 2022-07-13 00:00:00 Outpatient LISTER_MELI [facility] [id number] [facility] 2022-06-15 02:28:00 2022-06-15 03:00:00 Emergency ER GERBER CORREIA [facility] [id number] [facility] 2022-05-18 12:57:00 2022-05-18 14:21:00 Emergency ER ROSANGELA SUERO [facility] [id number] [facility] 2022-04-30 00:00:00 2022-04-30 00:00:00 Outpatient LISTER_MELI [facility] [id number] [facility] 2022-04-24 00:00:00 2022-04-24 00:00:00 Outpatient LISTER_MELI [facility] [id number] [facility] 2022-04-06 00:00:00 2022-04-06 00:00:00 Outpatient LISTER_MELI [facility] [id number] [facility] 2022-04-06 00:00:00 2022-04-06 00:00:00 Dominique Carlton, ROOM SERVICE WAITER: [address], [place] [address] , Ph. [facility] Nondenominational [facility] APPRENTICE COSMETOLOGIST [id number] [facility] 2022-04-05 00:00:00 2022-04-05 00:00:00 Outpatient LISTER_MELI [facility] [id number] [facility] 2021-06-22 14:54:00 2021-06-22 17:09:00 Emergency ER ADAM SILVA [facility] [id number] [facility] 2021-03-25 13:31:00 2021-03-25 14:30:00 Emergency ER NOEL FLORES [facility] [id number] [facility] 2021-03-15 06:07:00 2021-03-15 06:07:00 Outpatient LISTER_MELI [facility] [id number] [facility] 2021-02-24 05:41:00 2021-02-24 05:41:00 Outpatient LISTER_MELI [facility] [id number] [facility] 2021-02-24 00:00:00 2021-02-24 00:00:00 Dominique Carlton, ROOM SERVICE WAITER: [address], [place] [address] , Ph. [facility] Nondenominational HOP - [facility] APPRENTICE COSMETOLOGIST [id number] [facility] 2021-02-20 11:08:00 2021-02-20 11:08:00 Outpatient LISTER_MELI [facility] [id number] [facility] 2021-02-14 01:32:00 2021-02-14 01:32:00 Outpatient LISTER_MELI [facility] [id number] [facility] 2021-01-29 14:44:00 2021-01-29 17:11:00 Emergency TR LISA GIBBS [facility] [id number] [facility] 2021-01-25 10:03:00 2021-01-25 10:37:00 Emergency ER MORENOMartiNOEL [facility] [id number] [facility] 2021-01-24 11:52:00 2021-01-24 11:52:00 Outpatient Koudela_A MM[facility] MM [id number] [facility] 2021-01-21 11:10:00 2021-01-21 11:10:00 Outpatient Koudela_A MMG MMG [id number] [facility] 2021-01-21 00:00:00 2021-01-21 00:00:00 Cheryl Flor PA-C: [address], [place] [address] , Ph. [facility] [id number] [facility] 2021-01-04 10:49:00 2021-01-04 10:49:00 Outpatient Zuniga_F MMG MM [id number] [facility] 2020-12-31 11:30:00 2020-12-31 11:30:00 Outpatient Zuniga_F MMG MM [id number] [facility] 2020-12-31 11:30:00 2020-12-31 11:30:00 Outpatient Zuniga_F MMG MM [id number] [facility] 2020-12-31 11:30:00 2020-12-31 11:30:00 Outpatient Zuniga_F MMG MM [id number] [facility] 2020-12-31 00:00:00 2020-12-31 00:00:00 Blanka Carrera MD: [address], [place] [address] , Ph. [facility] [id number] [facility] 2020-12-25 18:57:00 2020-12-25 22:08:00 Emergency ER LOLY BARAJAS [facility] [id number] [facility] 2020-08-09 12:08:00 2020-08-09 13:11:00 Emergency ER KATIE DICKSON [facility] [id number] [facility] 2020-06-13 01:04:00 2020-06-13 01:04:00 Outpatient Zuniga_F MMG MMG [id number] [facility] 2020-06-03 05:57:00 2020-06-03 05:57:00 Outpatient Zuniga_F MMG MMG [id number] [facility] 2020-05-09 01:00:00 2020-05-09 01:00:00 Outpatient Zuniga_F MMG MMG [id number] [facility] 2020-05-07 10:32:00 2020-05-07 10:32:00 Outpatient Zuniga_F MMG MMG [id number] [facility] 2020-04-15 01:04:00 2020-04-15 01:04:00 Outpatient Zuniga_F MMG MMG [id number] [facility] 2020-04-13 09:09:00 2020-04-13 09:09:00 Outpatient Zuniga_F MMG MMG [id number] [facility] 2020-04-12 10:15:00 2020-04-12 10:15:00 Outpatient Zuniga_F MMG MMG [id number] [facility] 2020-04-12 00:00:00 2020-04-12 00:00:00 Blanka Carrera MD: [address] [place] [phone] , Ph. MMG [facility] [id number] [facility] 2020-04-05 04:11:00 2020-04-05 04:11:00 Outpatient Zuniga_F MMG MMG [id number] [facility] 2020-04-01 10:31:00 2020-04-01 10:31:00 Outpatient BLANKA FLOWERS [facility] [id number] [facility] 2020-03-25 01:04:00 2020-03-25 01:04:00 Outpatient Zuniga_F MMG MMG [id number] [facility] 2020-03-22 10:45:00 2020-03-22 10:45:00 Outpatient Zuniga_F MMG MMG [id number] [facility] 2020-02-19 01:04:00 2020-02-19 01:04:00 Outpatient Zuniga_F MMG MMG [id number] [facility] 2020-02-17 05:23:00 2020-02-17 05:23:00 Outpatient LISTER_MELI [facility] [id number] [facility] 2020-02-17 00:00:00 2020-02-17 00:00:00 Dominique Carlton, ROOM SERVICE WAITER: [address] [facility] [place] [address] , Ph. [facility] [place] [facility] H[facility] - [facility] APPRENTICE COSMETOLOGIST [id number] [facility] 2020-02-16 11:50:00 2020-02-16 11:50:00 Outpatient LISTER_MELI [facility] [id number] [facility] 2020-02-11 02:22:00 2020-02-11 02:22:00 Outpatient Zuniga_F MMG MMG [id number] [facility] 2020-02-10 02:14:00 2020-02-10 02:14:00 Outpatient LISTER_MELI [facility] [id number] [facility] 2020-01-19 12:53:00 2020-01-19 16:27:00 Emergency ER HANNAH DEY [facility] [id number] [facility] 2020-01-15 01:05:00 2020-01-15 01:05:00 Outpatient Zuniga_F MMG MMG [id number] [facility] 2020-01-13 09:13:00 2020-01-13 09:13:00 [id number] 2020-01-11 01:03:00 2020-01-11 01:03:00 Outpatient Zuniga_F MMG [facility] [id number] [facility] 2020-01-08 11:51:00 2020-01-08 11:51:00 Outpatient Zuniga_F MMG [facility] [id number] [facility] 2020-01-07 03:29:00 2020-01-07 03:29:00 Outpatient Zuniga_F MMG [facility] [id number] [facility] 2020-01-07 00:00:00 2020-01-07 00:00:00 Blanka Carrera MD: [address] [place] [address], [place] [address] , Ph. [facility] [id number] [facility] 2020-01-06 06:02:00 2020-01-06 06:02:00 [facility] [id number] [facility] 2019-12-23 11:05:00 2019-12-23 11:05:00 [facility] [id number] [facility] 2019-11-18 12:59:00 2019-11-18 12:59:00 Outpatient Zuniga_F MMG [facility] [id number] [facility] 2019-11-17 10:40:00 2019-11-17 10:40:00 Outpatient Zuniga_F MMG [facility] [id number] [facility] 2019-10-13 12:26:00 2019-10-13 12:26:00 Outpatient Zuniga_F MMG [facility] [id number] [facility] 2019-10-09 04:28:00 2019-10-09 04:28:00 Outpatient Zuniga_F MMG MMG [id number] [facility] 2019-10-09 00:00:00 2019-10-09 00:00:00 Chano Henry MD: [address], [place] [address] , Ph. [phone] [facility] [id number] [facility] 2019-10-08 04:39:00 2019-10-08 04:39:00 Outpatient Zuniga_F MMG MMG [id number] [facility] 2019-10-07 07:35:00 2019-10-07 07:35:00 Outpatient Zuniga_F MMG MMG [id number] [facility] 2019-10-07 00:00:00 2019-10-07 00:00:00 Blanka Carrera MD: [address], [place] [address] , Ph. [facility] [id number] [facility] 2019-09-25 03:59:00 2019-09-25 03:59:00 Outpatient Zuniga_F MMG MMG [id number] [facility] 2019-09-24 06:22:00 2019-09-24 06:22:00 Outpatient CHANO VELAZQUEZ [facility] [id number] [facility] 2019-09-17 11:08:00 2019-09-17 11:08:00 Outpatient Zuniga_F MMG MMG [id number] [facility] 2019-09-16 12:03:00 2019-09-16 12:03:00 Outpatient Zuniga_F MMG MMG [id number] [facility] 2019-09-16 00:00:00 2019-09-16 00:00:00 Chano Henry MD: [address], [place] [address] , Ph. [phone] [facility] [id number] [facility] 2019-09-11 19:57:00 2019-09-11 23:00:00 Emergency ER RAMAN HARGROVE [facility] [id number] [facility] 2019-09-11 09:13:00 2019-09-11 09:13:00 Outpatient Zuniga_F MMG MM [id number] [facility] 2019-09-10 07:30:00 2019-09-10 07:30:00 Outpatient Zuniga_F MMG MM [id number] [facility] 2019-09-10 00:00:00 2019-09-10 00:00:00 Blanka Carrera MD: [address] [place] [address] , Ph. [facility] [id number] [facility] 2019-08-25 04:23:00 2019-08-25 04:23:00 Outpatient Zuniga_F MMG [facility] [id number] [facility] 2019-07-02 19:18:00 2019-07-02 20:17:00 Emergency ER ALFREDO YANES [facility] [id number] [facility] 2019-06-17 12:47:00 2019-06-17 14:04:00 Emergency ER RAMAN HARGROVE [facility] [id number] [facility] 2019-05-18 18:05:00 2019-05-18 19:41:00 Emergency ER HANNAH DEY [facility] [id number] [facility] 2019 21:09:00 2019 23:45:00 Emergency ER RAMAN HARGROVE [facility] [id number] [facility] 2019-02-18 23:54:00 2019-02-19 01:28:00 Emergency ER NOEL FLORES [facility] [id number] [facility] 2019-01-28 19:42:00 2019-01-29 01:02:00 Emergency ER VITALY ROCHA [facility] [id number] [facility] 2017-05-25 14:37:00 2017-05-25 16:22:00 Emergency ER NOEL FLORES [facility] [id number] [facility] 2017-05-10 22:50:00 2017-05-11 01:15:00 Emergency ER RAMAN HARGROVE [facility] [id number] [facility] 2017-03-26 03:18:00 2017-03-26 05:35:00 Emergency ER BARAK ARREDONDO [facility] [id number] [facility] 2017-03-01 19:04:00 2017-03-01 21:51:00 Emergency ER RAMAN HARGROVE [facility] [id number] [facility] 2017-01-13 11:01:00 2017-01-13 12:28:00 Emergency ER NOEL FLORES [facility] [id number] [facility] 2016-04-28 16:46:00 2016-04-28 18:23:00 Emergency ER TOÑO FOSTER [facility] [id number] [facility] 2016-01-22 00:38:00 2016-01-22 03:02:00 Emergency ER TOÑO FOSTER [facility] [id number] [facility] 2015-12-06 23:09:00 2015-12-07 00:36:00 Emergency ER ALEXIA GUILLEN [facility] [id number] [facility] 2015-11-11 20:01:00 2015-11-11 22:02:00 Emergency ER CRISTIAN, CLEMENT [facility] [id number] [facility] 2015-09-11 22:03:00 2015-09-11 23:29:00 Emergency ER SHEIKH WASIM [facility] [id number] [facility] 2015-08-21 22:14:00 2015-08-22 02:45:00 Emergency ER OLIVIA PABLO [facility] [id number] [facility] 2015-05-03 10:57:00 2015-05-03 11:40:00 Emergency ER NOEL FLORES [facility] [id number] [facility] 2015-03-20 00:02:00 2015-03-20 03:22:00 Emergency ER DALTON KUMARI [facility] [id number] [facility] 2014-09-06 00:08:00 2014-09-06 03:36:00 Emergency ER ALEXIA GUILLEN [facility] [id number] [facility] 2014-04-14 23:52:00 2014-04-15 03:27:00 Emergency ER CRISTIAN, CLEMENT [facility] [id number] [facility] 2014-03-11 16:42:00 2014-03-11 20:43:00 Emergency ER CRISTIAN, CLEMENT [facility] [id number] [facility] 2014-03-08 19:08:00 2014-03-08 20:20:00 Emergency ER JANAGEOFF PACKERIDINIDA [facility] [id number] [facility] 2014-01-02 13:30:00 2014-01-02 16:54:00 Emergency ER JANABIRDIE OBIDIKE [facility] [id number] [facility] 2013-04-12 18:30:2013-04-12 21:31:00 Emergency ER TOÑO FOSTER [facility] [id number] [facility] 2007-12-19 06:58:00 2007-12-19 09:50:00 Emergency ER NIAT TORO [facility] [id number] [facility] Results Test Description Test Time Test Comments Results Result Co mments Source [facility]Presence] in Serum by RPR 2022-04-07 00:00:00* Test Item Value Reference Range Interpretation Comme nts Reagin Ab [Presence] in Seru m by RPR (test code = 19364-6) non reactive non reactive [facility] 2 tests - Meaningful Use [id number] 00:00:00* Test Item Value Reference Range Interpretation Comme nts HIV 1+2 Ab+HIV1 p24 Ag [Presence] in Serum or Plasma by Immunoassay (test code = 85164-2) non reactive non reactive [facility]atitis B virus surface Ag [Presence] in Serum or Plasma by [id number] 00:00:00* Test Item Value Reference Range Interpretation Comme nts Hepatitis B virus surface Ag [Presence] in Serum or Plasma by Immunoassay (test code = 5196-1) negative negative [facility] Auto Differential panel - Blood 2020-04-01 09:42:00* Test Item Value Reference Range Interpretation Comme nts white blood count (test code = white blood count) 8.8 K/uL 4.0-11.5 red blood count (test code = red blood count) 4.27 M/uL 3.80-5.20 hemoglobin (test code = hemoglobin) 11.9 g/dL 10.5-15.7 hematocrit (test code = hematocrit) 36.5 % 34.0-50.0 MCV [Entitic volume] (test c ode = 30034-7) 85.5 fL 86-100 L mean corpuscular hemoglobin [...] neutrophils/100 leukocytes in Blood (test code = 53318-3) 56.8 % 44.4-80.1 Immature granulocytes [#/vol ume] in Blood (test code = 35857-5) 0.0 K/uL 0.0-0.03 H lymphocyte% (test code = lymphocyte%) 33.1 % 10.0-50.0 mono % (test code = mono %) 6.6 % 3.6-12.0 eos % (test code = eos %) 2.3 % 0.0-5.4 Basophils/100 leukocytes in Unspecified specimen (test code = 17962-2) 0.7 % 0.1-1.2 Band form neutrophils [#/vol ume] in Blood (test code = 85723-4) 5.00 K/uL 1.56-6.13 Lymphocytes [#/volume] in Unspecified specimen by Automated count (test code = 07696-7) 2.9 K/uL 1.18-3.74 mono # (test code = mono #) 0.58 K/uL 0.24-0.86 eos # (test code = eos #) 0.20 K/uL 0.04-0.36 basophil # (test code = baso dany #) 0.06 K/uL 0.01-0.08 NRBC% (test code = NRBC%) 0 /100 WBC 0-0.2 NRBC# (test code = NRBC#) 0 K/uL [facility], method unspecified - [id number] 09:42:00NeutrophilsBandLymphocyteAtypical LymphMonocyteEosinophilBasophilMetamyelocyteMyelocytePromyelocyteBlastsNucleated Red Blood CellAbs Neutrophil Count (Man)Abs Lymph Count (Man)Abs Monocyte Count (Man)Abs Eosinophil Count (Man)Abs Basophil Count (Man)Platelet EstimatePlatelet MorphologyAnisocytosisMacrocytosisStomatocyteToxic GranulationToxic VacuolationSmudge CellsGiant PlateletsSickle CellsDifferential comment-PMaPanola Medical CenterHemoglobin A1c [Mass/volume] in [id number] 09:42:00* Test Item Value Reference Range Interpretation Comme nts Hemoglobin A1c [Mass/volume] in Blood (test code = 64697-7) 6.4 % 4.0-6.0 H [facility] HospitalComprehensive metabolic 2000 panel - Serum or [...] code = 6768-6) 180 U/L 35-105 H [facility] HospitalLipid 1996 panel - Serum or [id number] 09:42:00* Test Item Value Reference Range Interpretation [...] (test code = cholesterol risk ratio) 5.162 [facility] HospitalRe[facility] Ab [Presence] in Serum by [id number] 00:00:00* Test Item Value Reference Range Interpretation Comme [facility] Reagin Ab [Presence] in Seru m by RPR (test code = 33209-9) non reactive non reactive [facility]+2 Ab+HIV1 p24 Ag [Presence] in Serum or Plasma by [id number] 00:00:00* Test Item Value Reference Range Interpretation Comme nts HIV 1+2 Ab+HIV1 p24 Ag [Presence] in Serum or Plasma by Immunoassay (test code = 32971-0) non reactive non reactive [facility] ProgramHepatitis B virus surface Ag [Presence] in Serum or Plasma by [id number] 00:00:00* Test Item Value Reference Range Interpretation Comme nts Hepatitis B virus surface Ag [Presence] in Serum or Plasma by Immunoassay (test code = 5196-1) negative negative [facility] [id number] 05:33:00* Test Item Value Reference Range Interpretation Comme [facility] Surgical pathology study (test code = 52293-3) see separate pathology report. [facility] W Auto Differential panel - [id number] 11:30:00 * Test Item Value Reference Range Interpretation Comme nts white blood count (test code = white blood count) 9.7 K/uL 4.0-11.5 red blood count (test code = red blood count) 4.85 M/uL 3.80-5.20 hemoglobin (test code = hemoglobin) 14.0 g/dL 10.5-15.7 hematocrit (test code = hematocrit) 41.0 % 34.0-50.0 MCV [Entitic volume] (test c ode = 59409-0) 84.5 fL 86-100 L mean corpuscular hemoglobin [...] neutrophils/100 leukocytes in Blood (test code = 80365-5) 65.5 % 44.4-80.1 Immature granulocytes [#/vol ume] in Blood (test code = 11951-3) 0.1 K/uL 0.0-0.03 H lymphocyte% (test code = lymphocyte%) 25.6 % 10.0-50.0 mono % (test code = mono %) 5.8 % 3.6-12.0 eos % (test code = eos %) 2.2 % 0.0-5.4 Basophils/100 leukocytes in Unspecified specimen (test code = 16157-1) 0.4 % 0.1-1.2 Band form neutrophils [#/vol ume] in Blood (test code = 45486-4) 6.37 K/uL 1.56-6.13 H Lymphocytes [#/volume] in Unspecified specimen by Automated count (test code = 51459-1) 2.5 K/uL 1.18-3.74 mono # (test code = mono #) 0.56 K/uL 0.24-0.86 eos # (test code = eos #) 0.21 K/uL 0.04-0.36 basophil # (test code = baso dany #) 0.04 K/uL 0.01-0.08 NRBC% (test code = NRBC%) 0 /100 WBC 0-0.2 NRBC# (test code = NRBC#) 0 K/uL [facility] HospitalDifferential panel, method unspecified - [id number] 11:30:00NeutrophilsBandLymphocyteAtypical LymphMonocyteEosinophilMetamyelocytePlatelet EstimatePlatelet MorphologyToxic VacuolationSouth Mississippi State HospitalHemoglobin A1c [Mass/volume] in Blood 2019-09-22 11:30:00* Test Item Value Reference Range Interpretation Comme nts Hemoglobin A1c [Mass/volume] in Blood (test code = 76509-4) 9.0 % 4.0-6.0 H [facility] HospitalChoriogonadotropin ( test) [Presence] in Serum or [id number] 11:30:00* Test Item Value Reference Range Interpretation Comme nts Choriogonadotropin.beta subu nit ( test) [Presence] in Serum or Plasma (test code = 2110-5) negative neg [facility] HospitalComprehensive metabolic 2000 panel - Serum or [...] code = 6768-6) 168 U/L 35-105 H [facility] HospitalPrealbumin [Mass/volume] in Serum or [id number] 11:30:00* Test Item Value Reference Range Interpretation Comme nts pre-albumin (test code = pre-albumin) 23.0 mg/dL 20-40 [facility] W Auto Differential panel - [id number] 06:11:00 * Test Item Value Reference Range Interpretation Comme nts white blood count (test code = white blood count) 10.6 K/uL 4.0-11.5 red blood count (test code = red blood count) 5.00 M/uL 3.80-5.20 hemoglobin (test code = hemoglobin) 14.5 g/dL 10.5-15.7 hematocrit (test code = hematocrit) 42.1 % 34.0-50.0 MCV [Entitic volume] (test c ode = 42305-9) 84.2 fL 86-100 L mean corpuscular hemoglobin [...] neutrophils/100 leukocytes in Blood (test code = 87805-7) 56.6 % 44.4-80.1 Immature granulocytes [#/vol ume] in Blood (test code = 13289-6) 0.1 K/uL 0.0-0.03 H lymphocyte% (test code = lymphocyte%) 33.3 % 10.0-50.0 mono % (test code = mono %) 6.5 % 3.6-12.0 eos % (test code = eos %) 2.5 % 0.0-5.4 Basophils/100 leukocytes in Unspecified specimen (test code = 39784-0) 0.4 % 0.1-1.2 Band form neutrophils [#/vol ume] in Blood (test code = 63140-6) 6.02 K/uL 1.56-6.13 Lymphocytes [#/volume] in Unspecified specimen by Automated count (test code = 22904-6) 3.5 K/uL 1.18-3.74 mono # (test code = mono #) 0.69 K/uL 0.24-0.86 eos # (test code = eos #) 0.26 K/uL 0.04-0.36 basophil # (test code = baso dany #) 0.04 K/uL 0.01-0.08 NRBC% (test code = NRBC%) 0 /100 WBC 0-0.2 NRBC# (test code = NRBC#) 0 K/uL [facility] HospitalDifferential panel, method unspecified - [id number] 06:11:00NeutrophilsBandLymphocyteAtypical LymphMonocyteEosinophilBasophilNucleated Red Blood CellPlatelet EstimatePlatelet MorphologyHypochromasiaPoikilocytosisAnisocytosisMacrocytosisHowell-jolly BodiesToxic GranulationHypersegmented PolysToxic VacuolationDifferential comment-PMaPanola Medical CenterPT/[id number] 06:11:00* Test Item Value Reference Range Interpretation Comme nts prothrombin time (test code = prothrombin time) 10.3 seconds 10.3-12.3 INR in Blood by Coagulation assay (test code = 49564-5) 0.95 [facility] Hospitalpartial thromboplastin [id number] 06:11:00* Test Item Value Reference Range Interpretation Comme nts INR in Blood by Coagulation assay (test code = 54937-4) 28.6 seconds 22.5-37.0 [facility] HospitalComprehensive metabolic 2000 panel - Serum or [...] code = 6768-6) 156 U/L 35-105 H [facility] HospitalNatriuretic peptide.B prohormone N-Terminal [Mass/volume] in Serum or [id number] 06:11:00* Test Item Value Reference Range Interpretation Comme nts N-term pro natriuretic pepti de (test code = N-term pro natriuretic peptide) 15 pg/mL 0-125 [facility] HospitalCreatine kinase [Enzymatic activity/volume] in Serum or [id number] 06:11:00* Test Item Value Reference Range Interpretation Comme nts creatine kinase (test code = creatine kinase) 71 U/L 20-180 [facility] HospitalTroponin I.cardiac [Mass/volume] in [id number] 06:11:00* Test Item Value Reference Range Interpretation Comme [facility] cardiac troponin I (test cod e = cardiac troponin I) <0.30 0.0-0.5 [facility] HospitalCreatine kinase.MB [Mass/volume] in Serum or Plasma 2019-09-11 06:11:00* Test Item Value Reference Range Interpretation Comme [facility] Creatine kinase.MB [Mass/vol ume] in Serum or Plasma by Immunoassay (test code = 16209-9) <1.0 0.0-3.6 [facility]
[2024-06-15] MEDS ORDERED: MAGNES/ALUMIN/SIMET 30ML UCUP ONE (10:18)
[2024-06-15] MEDS ORDERED: PROMETHAZINE INJ 25 MG/ML AMP ONE (10:18)
[2024-06-15] MEDS ORDERED: FAMOTIDINE 20 MG TAB ONE (10:18)
[2024-06-15] MEDS ORDERED: LIDOCAINE VISCOUS 2% 10ML ORAL SOLN ONE (10:19)
--- NOTE | 2024-06-15 10:25 | EDPHYS ---
Physician Documentation [facility] Name: Anisha Navarro Age: 34 yrs Sex: Female : 1990 Arrival Date: 06/15/2024 Time: 09: Bed 20 Private MD: ED Physician Farzaneh Palomo HPI: 06/15 10:21 This 34 yrs old Female presents to ER via Ambulatory with complaints of sp3 heartburn and vomiting from hiatal hernia. 10:21 34-year-old female with history of diabetes, hypertension and known hiatal hernia with sp3 history of gastritis on last endoscopy now presents to the ED with chief complaint heartburn and mild epigastric pain. She also has chronic diarrhea she has been battling for several months. She is seeing her PCP on this already. She is here today primarily for help with her "heartburn". She has not seen GI recently or general surgery on any potential intervention regarding the hiatal hernia. She denies any fever, bloody emesis, melena, weakness, syncope, near syncope, palpitations, chest pain, shortness of breath, lower abdominal pain, or any other signs or symptoms on ROS at this time.. 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 - Infectious Disease History:: Denies. - Social history:: Smoking status: Patient denies any tobacco usage or history of. ROS: 10:22 Constitutional: Negative for fever, chills, and weight loss, Eyes: Negative for injury, sp3 pain, redness, and discharge, ENT: Negative for injury, pain, and discharge, Neck: Negative for injury, pain, and swelling, Cardiovascular: Negative for chest pain, palpitations, and edema, Respiratory: Negative for shortness of breath, cough, wheezing, and pleuritic chest pain, Back: Negative for injury and pain, : Negative for injury, bleeding, discharge, and swelling, MS/Extremity: Negative for injury and deformity, Skin: Negative for injury, rash, and discoloration, Neuro: Negative for headache, weakness, numbness, tingling, and seizure, 10:22 All other systems are negative, Exam: 10:22 Constitutional: This is a well developed, well nourished patient who is awake, alert, sp3 and in no acute distress. Head/Face: Normocephalic, atraumatic. Eyes: Pupils equal round and reactive to light, extra-ocular motions intact. Lids and lashes normal. Conjunctiva and sclera are non-icteric and not injected. Cornea within normal limits. Periorbital areas with no swelling, redness, or edema. Neck: Trachea midline, no thyromegaly or masses palpated, and no cervical lymphadenopathy. Supple, full range of motion without nuchal rigidity, or vertebral point tenderness. No Meningismus. Chest/axilla: Normal chest wall appearance and motion. Nontender with no deformity. No lesions are appreciated. Cardiovascular: Regular rate and rhythm with a normal S1 and S2. No gallops, murmurs, or rubs. Normal PMI, no JVD. No pulse deficits. Respiratory: Lungs have equal breath sounds bilaterally, clear to auscultation and percussion. No rales, rhonchi or wheezes noted. No increased work of breathing, no retractions or nasal flaring. Back: No spinal tenderness. No costovertebral tenderness. Full range of motion. Skin: Warm, dry with normal turgor. Normal color with no rashes, no lesions, and no evidence of cellulitis. MS/ Extremity: Pulses equal, no cyanosis. Neurovascular intact. Full, normal range of motion. Neuro: Awake and alert, GCS 15, oriented to person, place, time, and situation. Cranial nerves II-XII grossly intact. Motor strength 5/5 in all extremities. Sensory grossly intact. Cerebellar exam normal. Normal gait. Psych: Awake, alert, with orientation to person, place and time. Behavior, mood, and affect are within normal limits. 10:22 Abdomen/GI: Very mild epigastric tenderness to palpation., Vital Signs: 09:42 BP 146 / 95; Pulse 99; Resp 14; Temp 98.1; Pulse Ox 99% ; Weight 93.89 kg; Height 5 ft. sp 2 in. ; 10:34 BP 136 / 90; Pulse 90; Resp 18; Temp 98; Pulse Ox 100% on R/A; hb 09:42 Body Mass Index 37.86 (93.89 kg, 157.48 cm) sp MDM: 09:41 Medical Screening Exam initiated sp3 10:23 Data reviewed: vital signs, nurses notes. ED course: 34-year-old female with known sp3 hiatal hernia now with heartburn and gastritis type symptoms. Symptoms are not new and none of her complaints are acute. We will treat symptomatically with Phenergan IM, GI cocktail, Pepcid. Follow-up will be with GI along with p.o. meds for her symptoms. No further diagnostics or workup indicated in the ED. Vital signs are normal patient is resting comfortably in no acute distress.. Administered Medications: 10:37 Drug: GI Cocktail without - (Maalox PO 30 ml, Lidocaine Mucous Membrane 2 % 15 hb ml) PO once Route: PO; 10:38 Follow up: Response: Medication administered at discharge. hb 10:37 Drug: Famotidine PO 10 mg PO once Route: PO; hb 10:38 Follow up: Response: Medication administered at discharge. hb 10:37 Drug: Promethazine IM 25 mg IM once Route: IM; Site: right deltoid; hb 10:38 Follow up: Response: Medication administered at discharge. hb Disposition Summary: 06/15/24 10:24 Discharge Ordered Notes: Location: Home sp3 Condition: Stable sp3 Diagnosis - Gastritis, hiatal hernia, GERD sp3 Followup: sp3 - With: Private Physician - When: Upon discharge from the Emergency Department - Reason: Continuance of care Followup: sp3 - With: Jose Wood MD - When: Upon discharge from the Emergency Department - Reason: Recheck today's complaints Discharge Instructions: - Discharge Summary Sheet sp3 Forms: - Work release form hb - Medication Reconciliation Form sp3 - Antibiotic Education sp3 - Prescription Opioid Use sp3 - Patient Portal Instructions sp3 - Leadership Thank You Letter sp3 Prescriptions: - Protonix 40 mg Oral Tablet - take 1 tablet ORAL route once daily; 30 tablet; Refills: 0, Product Selection sp3 Permitted - ondansetron 8 mg Oral Tablet,disintegrating - take 1 tablet ORAL route every 12 hours; 20 tablet; Refills: 0, Product sp3 Selection Permitted Signatures: Makenzie Reid RN RN Parks, Rhonda, RN RN hb Palomo, Setul, MD MD sp3
--- NOTE | 2024-06-15 10:25 | ER ---
Nurse's Notes [facility] Name: Anisha Navarro Age: 34 yrs Sex: Female : 1990 Arrival Date: 06/15/2024 Time: : Bed 20 Private MD: Diagnosis: Gastritis, hiatal hernia, GERD Presentation: 06/15 09:41 Chief complaint: Patient states: N/V, heartburn x 4 days. HX of hiatal hernia. ss Coronavirus screen: Client denies travel out of the [place] in the last 14 days. Ebola Screen: Patient denies exposure to infectious person. Patient denies travel to an Ebola-affected area in the 21 days before illness onset. Initial Sepsis Screen: Does the patient meet any 2 criteria? No. Patient's initial sepsis screen is negative. Does the patient have a suspected source of infection? No. Patient's initial sepsis screen is negative. Risk Assessment: Do you want to hurt yourself or someone else? Patient reports no desire to harm self or others. Onset of symptoms was June 11, 2024. 09:41 Method Of Arrival: Ambulatory 09:41 Acuity: NIKKI 3 ss Triage Assessment: 10:10 General: see nurses assessment. GI: Reports upper abdominal pain, since last 4 days. 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 - Infectious Disease History:: Denies. - Social history:: Smoking status: Patient denies any tobacco usage or history of. Screenin:15 [facility] ED Fall Risk Assessment (Adult) History of falling in the last 3 months, hb including since admission No falls in past 3 months (0 pts) Confusion or Disorientation No (0 pts) Intoxicated or Sedated No (0 pts) Impaired Gait No (0 pts) Mobility Assist Device Used No (0 pt) Altered Elimination No (0 pt) Score/Fall Risk Level 0 - 2 = Low Risk Maintained a safe environment, Hourly rounding (assess needs \T\ fall precautionary measures) done. Abuse screen: Denies threats or abuse. Denies injuries from another. Nutritional screening: No deficits noted. Tuberculosis screening: No symptoms or risk factors identified. Assessment: 10:00 General: Appears in no apparent distress. Behavior is calm, cooperative. Pain: hb Complains of pain in abdomen Pain currently is 6 out of 10 on a pain scale. Neuro: Level of Consciousness is awake, Oriented to person, place, time. Cardiovascular: Patient's skin is warm and dry. Respiratory: Airway is patent Respiratory effort is unlabored. GI: Abdomen is non-distended. : No signs and/or symptoms were reported regarding the genitourinary system. Vital Signs: 09:42 BP 146 / 95; Pulse 99; Resp 14; Temp 98.1; Pulse Ox 99% ; Weight 93.89 kg; Height 5 ft. sp 2 in. ; 10:34 BP 136 / 90; Pulse 90; Resp 18; Temp 98; Pulse Ox 100% on R/A; hb 09:42 Body Mass Index 37.86 (93.89 kg, 157.48 cm) sp ED Course: 09:26 Patient arrived in ED. im 09:32 Farzaneh Palomo MD is Attending Physician. sp3 09:42 Triage completed. ss 09:42 Arm band placed on right wrist. ss 10:15 Patient has correct armband on for positive identification. Bed in low position. Call hb light in reach. Provided Education on: call light. 10:15 No provider procedures requiring assistance completed. hb 10:24 Jose Wood MD is Referral Physician. sp3 10:32 Rhonda aPrks, BERNIE is Primary Nurse. hb 10:40 Patient did not have IV access during this emergency room visit. hb Administered Medications: 10:37 Drug: GI Cocktail without - (Maalox PO 30 ml, Lidocaine Mucous Membrane 2 % 15 hb ml) PO once Route: PO; 10:38 Follow up: Response: Medication administered at discharge. hb 10:37 Drug: Famotidine PO 10 mg PO once Route: PO; hb 10:38 Follow up: Response: Medication administered at discharge. hb 10:37 Drug: Promethazine IM 25 mg IM once Route: IM; Site: right deltoid; hb 10:38 Follow up: Response: Medication administered at discharge. hb Medication: 10:15 VIS not applicable for this client. hb Outcome: 10:24 Discharge ordered by MD. lovell 10:39 Discharged to home ambulatory, 10:39 Condition: stable 10:39 Discharge instructions given to patient, Instructed on discharge instructions, follow up and referral plans. Demonstrated understanding of instructions, follow-up care, 10:55 Patient left the ED. hb Signatures: Sade Herring Shelby, RN RN Rhonda Parks RN RN Farzaneh Palomo MD MD sp3 Mecca Junior
[2024-06-15 11:01] VITALS: BP 136/90; TEMP 98; O2SAT 100
== END 2024-06-15 10:55 | disposition home or self-care (01) ==
LOC: ER 09:23
DX: K29.70 Gastritis, unspecified, without bleeding (principal); K21.9 Gastro-esophageal reflux disease without esophagitis; K44.9 Diaphragmatic hernia without obstruction or gangrene
CPT/HCPCS: 96372; 99284; J2550

== ENCOUNTER 2024-07-19 10:53 | Emergency (ER) | payer SELFPAY ==
--- OUTSIDE RECORDS SUMMARY | 2024-07-19 10:57 | XMS REPORT | Continuity of Care Document ---
Author Name Unknown Address [address] [facility] Ernesto. [address] [place] [address] [facility] Address [address] [facility]. [address] [place] [address] Support Name Relationship Address Phone ELISABETH FLANAGAN Unknown [phone] MD RAMAN HARGROVE Emergency Provider [address] [place] [address] VIKKI GRANT Primary Care Physician [address] [place] [address] SYLVESTER CABEZAS Next of Kin [address] [place] [address] MD ALFREDO YANES Emergency Provider [address] [place] [address] MD BLANKA CARRERA Primary Care Physician [address] [place] [address] MD HANNAH DEY Emergency Provider [address] [place] [address] MD KATIE DICKSON Emergency Provider [address] [place] [address] MD LOLY BARAJAS Emergency Provider [address] [place] [address] MD NOEL FLORES Emergency Provider [address] [place] [address] MD ADAM SILVA Emergency Provider [address] [place] [address] MD Bernadette Belcher Emergency Provider [address] [place] [address] SR JADA Family Member [address] [place] [address] NAZARIO CABEZAS Guarantor [address] [place] [address] MD JESUS LI Emergency Provider [address] [place] [address] SYLVESTER CABEZAS Next of Kin [address] [place] [address] SR, JADA Family Member [phone] [place] [address] Care Team Providers Care Tennis Centre Manager Name Role Phone BLANKA CARRERA Primary Care Physician Unavaila SUREKHA Roper Attending Clinician Unavailable SUREKHA MARINA Attending Clinician Unavailable Surekha Garcia Attending Clinician ROSANGEAL SUERO Attending Clinician UnavailJESUS Bazan Attending Clinician Unavailab BERNADETTE [place] Attending Clinician Unavailab ROMARIO Palacios Attending Clinician Unavailab julius HERNANDEZ Attending Clinician Unavailable GERBER CORREIA Attending Clinician Unavailable ADAM SILVA Attending Clinician Unavailable NOEL FLORES Attending Clinician Unavailable LISA GIBBS Attending Clinician Unavailable Sunil Attending Clinician Unavailable Ruperto Attending Clinician Unavailable LOLY BARAJAS Attending Clinician [...] Unavailable NITA TORO Attending Clinician Unavailabl e LISTER_MELISSA Admitting Clinician Unavailable Sunil Admitting Clinician Unavailable Ruperto Admitting Clinician Unavailable Payers Payer Name Policy Type Policy Number Effective Date Expirati on Date Source [facility] [place] [facility] [id number] 2024 00:00:00 [place] [place]MEDICAID[place] [id number] 2021 00:00:00 [place] [facility] ([facility]) [id number] [place] [id number] Problems Condition Name Condition Details Condition Category [...] Date Inactive Date Treating Clinician Comments Source Benadryl Deconges tant Propensi ty to adverse reaction s Active Other - See comments 2024-0 4-04 00:00: 00 Panic attack [facility] Benzonat ate Propensi ty to adverse reaction s Active Shortness of Breath 2024-0 4-04 00:00: 00 [facility] Tramadol Propensi ty to adverse reaction s Active Itching 2024-0 4-04 00:00: 00 [facility] SULFAMET HOXAZOLE -TRIMETH OPRIM DRUG Active SOB 2024-0 4-04 00:00: 00 [facility] BENADRYL DECONGES TANT DRUG Active Other-Cmnt 2024-0 4-04 00:00: 00 [facility] BENZONAT ATE DRUG INGREDI Active SOB 2024-0 4-04 00:00: 00 [facility] TRAMADOL DRUG INGREDI Active ITCHING 2024-0 4-04 00:00: 00 [facility] Sulfamet hoxazole -Trimeth oprim Propensi ty to adverse reaction s Active Shortness of Breath 4-04 00:00: 00 [facility] Bactrim Allergy to substanc e Active [facility] Tessalon Perles Allergy to substanc e Active Chest pain [facility] Benzonat ate Allergy to substanc e Active [facility] Social History Social Habit Start Date Stop Date Quantity Comments Source Sexual orientation [facility] Sex assigned at 1990 00:00:00 1990 00:00:00 [facility] Smoking Status Start Date Stop Date Source Former Smoker [facility] Never Smoker [facility] Tobacco smoking consumption unknown [facility] Medications Ordered Medication Name Filled Medication Name Start Date Stop Date Current Medication? Ordering Clinician Indication Dosage Frequency Signature (SIG) Comments Components Source traMADOL (ULTRAM) 50 mg tablet 06-09 00:00: 00 Yes [id number] 50mg Take 1 tablet by mouth every 6 (six) hours as needed for Pain (scale 7-10). [facility] ondansetron (ZOFRAN) 4 mg tablet 06-09 00:00: 00 Yes [id number] 4mg Take 1 tablet by mouth every 8 (eight) hours as needed for Nausea and Vomiting (N/V). [facility] lisinopril 20 mg tablet Take 1 tablet every day by oral route for 90 days. lisinopril 20 mg tablet Take 1 tablet every day by oral route for 90 days. No 1 Q1D lisinopril 20 mg tablet Take 1 tablet every day by oral route for 90 days. [facility] metformin 500 mg tablet Take 1 tablet twice a day by oral route for 30 days. metformin 500 mg tablet Take 1 tablet twice a day by oral route for 30 days. No metformin 500 mg tablet Take 1 tablet twice a day by oral route for 30 days. [facility] Zithromax Z-Stanford 250 mg tablet TAKE 2 [...] ROUTE ONCE DAILY FOR 4 DAYS [facility] Vital Signs Vital Name Observation Time Observation Value Comments S ource Systolic blood pressure 2024-06-28 00:04:00 146 mm[Hg] [facility] Diastolic blood pressure 2024-06-28 00:04:00 100 mm[Hg] [facility] Heart rate 2024-06-28 00:04:00 79 /min [facility] Body temperature 2024-06-28 00:04:00 37 Mita [facility] Respiratory rate 2024-06-28 00:04:00 20 /min [facility] Body height 2024-06-28 00:04:00 157.5 cm [facility] Body weight 2024-06-28 00:04:00 92.987 kg [facility] BMI 2024-06-28 00:04:00 37.49 kg/m2 [facility] Oxygen saturation in Arterial blood by Pulse oximetry 2024-06-28 00:04:00 95 /min [facility] Body Weight 2024-01-23 00:00:00 210 [lb_av] [facility] ag[facility]a [facility] BP Systolic 2024-01-23 00:00:00 139 mm[Hg] [place] mel[facility] BP Diastolic 2024-01-23 00:00:00 96 mm[Hg] [facility] Height 2024-01-23 00:00:00 62 [in_i] [place] [facility] BMI (Body Mass Index) 2024-01-23 00:00:00 38.4 kg/m2 [place] [facility] Height 2022-04-06 00:00:00 62 [in_i] [place] [facility] BMI (Body Mass Index) 2022-04-06 00:00:00 40.4 kg/m2 [place] [facility] Body Weight 2022-04-06 00:00:00 221 [lb_av] [place] [facility] BP Diastolic 2021-02-24 00:00:00 86 mm[Hg] [facility] [place] Height 2021-02-24 00:00:00 62 [in_i] [place] [facility] BMI (Body Mass Index) 2021-02-24 00:00:00 41.5 kg/m2 [place] [facility] BP Systolic 2021-02-24 00:00:00 124 mm[Hg] [place] Body Weight 2021-02-24 00:00:00 227 [lb_av] [facility] BP Diastolic 2021-01-21 00:00:00 87 mm[Hg] [facility] Height 2021-01-21 00:00:00 62 [in_i] [facility] BMI (Body Mass Index) 2021-01-21 00:00:00 41.2 kg/m2 [facility] BP Systolic 2021-01-21 00:00:00 121 mm[Hg] [facility] Body Weight 2021-01-21 00:00:00 3600 [oz_av] [facility] BP Diastolic 2020-12-31 00:00:00 80 mm[Hg] [facility] Height 2020-12-31 00:00:00 62 [in_i] [facility] BMI (Body Mass Index) 2020-12-31 00:00:00 41 kg/m2 [facility] BP Systolic 2020-12-31 00:00:00 118 mm[Hg] [facility] Body Weight 2020-12-31 00:00:00 3585 [oz_av] [facility] Height 2020-04-12 00:00:00 62 [in_i] [facility] BMI (Body Mass Index) 2020-04-12 00:00:00 41.3 kg/m2 [facility] Body Weight 2020-04-12 00:00:00 3616 [oz_av] [facility] Height 2020-02-17 00:00:00 62 [in_i] [place] [facility] BMI (Body Mass Index) 2020-02-17 00:00:00 40.1 kg/m2 [place] [facility] Body Weight 2020-02-17 00:00:00 219 [lb_av] [facility] BP Diastolic 2020-01-07 00:00:00 96 mm[Hg] [facility] Height 2020-01-07 00:00:00 62 [in_i] [facility] BMI (Body Mass Index) 2020-01-07 00:00:00 41.4 kg/m2 [facility] BP Systolic 2020-01-07 00:00:00 131 mm[Hg] [facility] Body Weight 2020-01-07 00:00:00 3622 [oz_av] [facility] BP Diastolic 2019-10-09 00:00:00 83 mm[Hg] [facility] Height 2019-10-09 00:00:00 62 [in_i] [facility] BMI (Body Mass Index) 2019-10-09 00:00:00 42.3 kg/m2 [facility] BP Systolic 2019-10-09 00:00:00 130 mm[Hg] [facility] Body Weight 2019-10-09 00:00:00 231 [lb_av] [facility] BP Diastolic 2019-10-07 00:00:00 110 mm[Hg] [facility] Height 2019-10-07 00:00:00 62 [in_i] [facility] BMI (Body Mass Index) 2019-10-07 00:00:00 42.3 kg/m2 [facility] BP Systolic 2019-10-07 00:00:00 148 mm[Hg] [facility] Body Weight 2019-10-07 00:00:00 3703 [oz_av] [facility] BP Diastolic 2019-09-16 00:00:00 98 mm[Hg] [facility] Height 2019-09-16 00:00:00 62 [in_i] [facility] BMI (Body Mass Index) 2019-09-16 00:00:00 43.2 kg/m2 [facility] BP Systolic 2019-09-16 00:00:00 138 mm[Hg] [facility] Body Weight 2019-09-16 00:00:00 236 [lb_av] [facility] BP Diastolic 2019-09-10 00:00:00 101 mm[Hg] [facility] Height 2019-09-10 00:00:00 62 [in_i] [facility] BMI (Body Mass Index) 2019-09-10 00:00:00 43.2 kg/m2 [facility] BP Systolic 2019-09-10 00:00:00 143 mm[Hg] [facility] Body Weight 2019-09-10 00:00:00 3776 [oz_av] [facility] Procedures Procedure Date / Time Performed Performing Clinician Source Esophagogastroduodenoscopy 2019-09-24 00:00:00 [facility] Cholecystectomy [place] [facility] Endoscopy of Upper Gastrointestinal Tract [place] [facility] Hand Surgery [place] [facility] Plan of Care Planned Activity Planned Date Details Comments Source Diagnostic Test Pending 2021-01-21 00:00:00 rapid strep group A, throat [code = rapid strep group A, throat] [facility] Encounters Start Date/Time End Date/Time Encounter Type Admission Type Attending Clinicians Care Facility Care Department Encounter ID Source 2024-06-27 19:08:00 2024-06-27 22:22:00 Emergency X SUREKHA MARINA [facility]IC[facility] ERT [id number] [facility] 2024-06-27 19:08:00 2024-06-27 22:22:00 Emergency Surekha Marina AT [facility] [id number] [facility] 2024-04-10 17:34:00 2024-04-10 20:02:00 Emergency ER ROSANGELA SUERO [facility] [id number] [facility] 2024-01-23 00:00:00 2024-01-23 00:00:00 Tiffany Carlton, LOT BOSS: [address], [place] [address] , Ph. [facility] HOP - [facility] IMPLEMENTATION SPECIALIST [id number] [facility] 2023-08-02 08:07:00 2023-08-02 11:00:00 emergency [facility] [id number] 2023-08-02 08:07:00 2023-08-02 11:00:00 Emergency ER JESUS LI [facility] [id number] [facility] 2023-05-30 08:23:00 2023-05-30 10:10:00 emergency [facility] [id number] 2023-05-30 08:23:00 2023-05-30 10:10:00 Emergency ER BERNADETTE BELCHER [facility] [id number] [facility] 2022-09-02 19:58:00 2022-09-02 23:35:00 Emergency ER ROMARIO XIONG [facility] [id number] [facility] 2022-07-13 00:00:00 2022-07-13 00:00:00 Outpatient LISTER_SANDRAI [facility] [id number] [facility] 2022-06-15 02:28:00 2022-06-15 03:00:00 Emergency ER GERBER CORREIA [facility] [id number] [facility] 2022-05-18 12:57:00 2022-05-18 14:21:00 Emergency ER ROSANGELA SUERO [facility] [id number] [facility] 2022-04-30 00:00:00 2022-04-30 00:00:00 Outpatient LISTER_MELI [facility] [id number] [facility] 2022-04-24 00:00:00 2022-04-24 00:00:00 Outpatient LISTER_MELI [facility] [id number] [facility] 2022-04-06 00:00:00 2022-04-06 00:00:00 Outpatient LISTER_MELI [facility] [id number] [facility] 2022-04-06 00:00:00 2022-04-06 00:00:00 Tiffany Carlton, LOT BOSS: [address] [facility] [address] [place] [address] , Ph. [facility] Rest[facility] IMPLEMENTATION SPECIALIST [id number] [facility] 2022-04-05 00:00:00 2022-04-05 00:00:00 Outpatient LISTER_MELI [facility] [id number] [facility] 2021-06-22 14:54:00 2021-06-22 17:09:00 Emergency ER ADAM SILVA [facility] [id number] [facility] 2021-03-25 13:31:00 2021-03-25 14:30:00 Emergency ER MARKNICKOLASRony [facility] [id number] [facility] 2021-03-15 06:07:2021-03-15 06:07:00 Outpatient LISTER_MELI [facility] [id number] [facility] 2021-02-24 05:41:00 2021-02-24 05:41:00 Outpatient LISTER_MELI [facility] [id number] [facility] 2021-02-24 00:00:00 2021-02-24 00:00:00 Tiffany Carlton, LOT BOSS: [address], [place] [address] , Ph. [facility] [place] [facility] HOP - [facility] IMPLEMENTATION SPECIALIST [id number] [facility] 2021-02-20 11:08:00 2021-02-20 11:08:00 Outpatient LISTER_MELI [facility] [id number] [facility] 2021-02-14 01:32:00 2021-02-14 01:32:00 Outpatient LISTER_MELI [facility] [id number] [facility] 2021-01-29 14:44:00 2021-01-29 17:11:00 Emergency TR LISA GIBBS [facility] [id number] [facility] 2021-01-25 10:03:00 2021-01-25 10:37:00 Emergency ER NOEL FLORES [facility] [id number] [facility] 2021-01-24 11:52:00 2021-01-24 11:52:00 Outpatient Koudela_A [facility] [id number] [facility] 2021-01-21 11:10:00 2021-01-21 11:10:00 Outpatient Koudela_A MMG [facility] [id number] [facility] 2021-01-21 00:00:00 2021-01-21 00:00:00 Cheryl Flor PA-C: [address] [place] [address] [place] [address] , Ph. MM[facility] [id number] [facility] 2021-01-04 10:49:00 2021-01-04 10:49:00 Outpatient Zuniga_F MMG [facility] [id number] [facility] 2020-12-31 11:30:00 2020-12-31 11:30:00 Outpatient Zuniga_F MMG [facility] [id number] [facility] 2020-12-31 11:30:00 2020-12-31 11:30:00 Outpatient Zuniga_F MMG [facility] [id number] [facility] 2020-12-31 11:30:00 2020-12-31 11:30:00 Outpatient Zuniga_F MMG [facility] [id number] [facility] 2020-12-31 00:00:00 2020-12-31 00:00:00 Blanka Carrera MD: [address] [facility] [address] [address] , [facility]. [facility] [id number] [facility] 2020-12-25 18:57:00 2020-12-25 22:08:00 Emergency ER LOLY BARAJAS [facility] [id number] [facility] 2020-08-09 12:08:00 2020-08-09 13:11:00 Emergency ER KATIE DICKSON [facility] [id number] [facility] 2020-06-13 01:04:00 2020-06-13 01:04:00 Outpatient Zuniga_F MMG [facility] [id number] [facility] 2020-06-03 05:57:00 2020-06-03 05:57:00 Outpatient Zuniga_F MMG [facility] [id number] [facility] 2020-05-09 01:00:00 2020-05-09 01:00:00 Outpatient Zuniga_F [facility] [id number] [facility] 2020-05-07 10:32:00 2020-05-07 10:32:00 Outpatient Zuniga_F [facility] [id number] [facility] 2020-04-15 01:04:00 2020-04-15 01:04:00 Outpatient Zuniga_F MM[facility] [id number] [facility] 2020-04-13 09:09:00 2020-04-13 09:09:00 Outpatient Zuniga_F MM[facility] [id number] [facility] 2020-04-12 10:15:00 2020-04-12 10:15:00 Outpatient Zuniga_F MM[facility] [id number] [facility] 2020-04-12 00:00:00 2020-04-12 00:00:00 Blanka Carrera MD: [address] [place] [address] , Ph. [facility] [id number] [facility] 2020-04-05 04:11:00 2020-04-05 04:11:00 Outpatient Zuniga_F MM[facility] [id number] [facility] 2020-04-01 10:31:00 2020-04-01 10:31:00 Outpatient BLANKA FLOWERS [facility] [id number] [facility] 2020-03-25 01:04:00 2020-03-25 01:04:00 Outpatient Zuniga_F MM[facility] [id number] [facility] 2020-03-22 10:45:00 2020-03-22 10:45:00 Outpatient Zuniga_F MM[facility] [id number] [facility] 2020-02-19 01:04:00 2020-02-19 01:04:00 Outpatient Zuniga_F MMG [facility] [id number] [facility] 2020-02-17 05:23:00 2020-02-17 05:23:00 Outpatient BEULAH SHIP[facility] [id number] [facility] 2020-02-17 00:00:00 2020-02-17 00:00:00 Tiffany Carlton, LOT BOSS: [address] [place] [address] , Ph. [facility] [place] [facility] HOP - [facility] IMPLEMENTATION SPECIALIST [id number] [facility] 2020-02-16 11:50:00 2020-02-16 11:50:00 Outpatient JOMAR_RADHA SHIPLEY [facility] [id number] [facility] 2020-02-11 02:22:00 2020-02-11 02:22:00 Outpatient Zuniga_F MMG [facility] [id number] [facility] 2020-02-10 02:14:00 2020-02-10 02:14:00 Outpatient JOMAR_RADHA [facility]IP[facility] [id number] [facility] 2020-01-19 12:53:00 2020-01-19 16:27:00 Emergency ER HANNAH DEY [facility] [id number] [facility] 2020-01-15 01:05:00 2020-01-15 01:05:00 Outpatient Zuniga_F MMG [facility] [id number] [facility] 2020-01-13 09:13:00 2020-01-13 09:13:00 Outpatient Zuniga_F MMG [facility] [id number] [facility] 2020-01-11 01:03:00 2020-01-11 01:03:00 Outpatient Zuniga_F MMG [facility] [id number] [facility] 2020-01-08 11:51:00 2020-01-08 11:51:00 Outpatient Zuniga_F MM[facility] [id number] [facility] 2020-01-07 03:29:00 2020-01-07 03:29:00 Outpatient Zuniga_F MMG MM [id number] [facility] 2020-01-07 00:00:00 2020-01-07 00:00:00 Blanka Carrera MD: [address] [facility] [address], [place] [address] , Ph. MMG [facility] [id number] [facility] 2020-01-06 06:02:00 2020-01-06 06:02:00 Outpatient Zuniga_F MMG MM [id number] [facility] 2019-12-23 11:05:00 2019-12-23 11:05:00 Outpatient Zuniga_F MMG MM [id number] [facility] 2019-11-18 12:59:00 2019-11-18 12:59:00 Outpatient Zuniga_F MMG MM [id number] [facility] 2019-11-17 10:40:00 2019-11-17 10:40:00 Outpatient Zuniga_F MMG MM [id number] [facility] 2019-10-13 12:26:00 2019-10-13 12:26:00 Outpatient Zuniga_F MMG MM [id number] [facility] 2019-10-09 04:28:00 2019-10-09 04:28:00 Outpatient Zuniga_F MMG MM [id number] [facility] 2019-10-09 00:00:00 2019-10-09 00:00:00 Chano Henry MD: [address] [address] , Ph. [phone] MM[facility] surgery [id number] [facility] 2019-10-08 04:39:00 2019-10-08 04:39:00 Outpatient Zuniga_F MMG [facility] [id number] [facility] 2019-10-07 07:35:00 2019-10-07 07:35:00 Outpatient Zuniga_F MMG [facility] [id number] [facility] 2019-10-07 00:00:00 2019-10-07 00:00:00 Blanka Carrera MD: [address] [address] , [facility]. [facility] [id number] [facility] 2019-09-25 03:59:00 2019-09-25 03:59:00 Outpatient Zuniga_F MMG [facility] [id number] [facility] 2019-09-24 06:22:00 2019-09-24 06:22:00 Outpatient CHANO VELAZQUEZ [facility] [id number] [facility] 2019-09-17 11:08:00 2019-09-17 11:08:00 Outpatient Zuniga_F MMG [facility] [id number] [facility] 2019-09-16 12:03:00 2019-09-16 12:03:00 Outpatient Zuniga_F MMG [facility] [id number] [facility] 2019-09-16 00:00:00 2019-09-16 00:00:00 Chano Henry MD: [address] [address] , Ph. [phone] [facility] [id number] [facility] 2019-09-11 19:57:00 2019-09-11 23:00:00 Emergency ER RAMAN HARGROVE [facility] [id number] [facility] 2019-09-11 09:13:00 2019-09-11 09:13:00 Outpatient Zuniga_F MMG [facility] [id number] [facility] 2019-09-10 07:30:00 2019-09-10 07:30:00 Outpatient Zkaya_F [facility] [id number] [facility] 2019-09-10 00:00:00 2019-09-10 00:00:00 Blanka Carrera MD: [address] [place] [address] [address] [address] , Ph. MM[facility] [place] [facility] [id number] [facility] 2019-08-25 04:23:00 2019-08-25 04:23:00 Outpatient Akuakaya_F [facility] [id number] [facility] 2019-07-02 19:18:00 2019-07-02 20:17:00 Emergency ER ALFREDO YANES [facility] [id number] [facility] 2019-06-17 12:47:00 2019-06-17 14:04:00 Emergency ER RAMAN HARGROVE [facility] [id number] [facility] [facility] 2019-05-18 18:05:00 2019-05-18 19:41:00 Emergency ER ANIJOLANTAGrisHANNAH [facility] [id number] [facility] 2019 21:09:00 2019 23:45:00 Emergency ER RAMAN HARGROEV [facility] [id number] [facility] 2019-02-18 23:54:00 2019-02-19 01:28:00 Emergency ER NOEL FLORES [facility] [id number] [facility] 2019-01-28 19:42:00 2019-01-29 01:02:00 Emergency ER VITALY ROCHA [facility] [id number] [facility] 2017-05-25 14:37:00 2017-05-25 16:22:00 Emergency ER NOEL FLORES [facility] [id number] [facility] 2017-05-10 22:50:00 2017-05-11 01:15:00 Emergency ER RAMAN HARGROVE [facility] [id number] [facility] 2017-03-26 03:18:00 2017-03-26 05:35:00 Emergency ER BARAK ARREDONDO [facility] [id number] [facility] 2017-03-01 19:04:00 2017-03-01 21:51:00 Emergency ER RAMAN HARGROVE [facility] [id number] [facility] 2017-01-13 11:01:00 2017-01-13 12:28:00 Emergency ER NOEL FLORES [facility] [id number] [facility] 2016-04-28 16:46:00 2016-04-28 18:23:00 Emergency ER CRISTIAN, CLEMENT [facility] [id number] [facility] 2016-01-22 00:38:00 2016-01-22 03:02:00 Emergency ER CRISTIAN, CLEMENT [facility] [id number] [facility] 2015-12-06 23:09:00 2015-12-07 00:36:00 Emergency ER , WASIM [facility] [id number] [facility] 2015-11-11 20:01:00 2015-11-11 22:02:00 Emergency ER CRISTIAN, CLEMENT [facility] [id number] [facility] 2015-09-11 22:03:00 2015-09-11 23:29:00 Emergency ER , WASIM [facility] [id number] [facility] 2015-08-21 22:14:00 2015-08-22 02:45:00 Emergency ER OLIVIA PABLO [facility] [id number] [facility] 2015-05-03 10:57:00 2015-05-03 11:40:00 Emergency ER NOEL FLORES [facility] [id number] [facility] 2015-03-20 00:02:00 2015-03-20 03:22:00 Emergency ER DALTON KUMARI [facility] [id number] [facility] 2014-09-06 00:08:00 2014-09-06 03:36:00 Emergency ER ALXEIA GUILLEN [facility] [id number] [facility] 2014-04-14 23:52:00 2014-04-15 03:27:00 Emergency ER TOÑO FOSTER [facility] [id number] [facility] 2014-03-11 16:42:00 2014-03-11 20:43:00 Emergency ER TOÑO FOSTER [facility] [id number] [facility] 2014-03-08 19:08:00 2014-03-08 20:20:00 Emergency ER SURYASUNNY KATE [facility] [id number] [facility] 2014-01-02 13:30:00 2014-01-02 16:54:00 Emergency ER SUNNY ARCE [facility] [id number] [facility] 2013-04-12 18:30:00 2013-04-12 21:31:00 Emergency ER TOÑO FOSTER [facility] [id number] [facility] 2007-12-19 06:58:00 2007-12-19 09:50:00 Emergency ER NITA TORO [facility] [id number] [facility] Results Test Description Test Time Test Comments Results Result Co mments Source [place] [facility] [Presence] in Serum by RPR 2022-04-07 00:00:00* Test Item Value Reference Range Interpretation Comme nts Reagin Ab [Presence] in Seru m by RPR (test code = 36113-1) non reactive non reactive [facility] - Meaningful Use [id number] 00:00:00* Test Item Value Reference Range Interpretation Comme nts HIV 1+2 Ab+HIV1 p24 Ag [Presence] in Serum or Plasma by Immunoassay (test code = 21957-0) non reactive non reactive [facility] LakeHepatitis B virus surface Ag [Presence] in Serum or Plasma by [id number] 00:00:00* Test Item Value Reference Range Interpretation Comme nts Hepatitis B virus surface Ag [Presence] in Serum or Plasma by Immunoassay (test code = 5196-1) negative negative [facility] Auto Differential panel - Blood 2020-04-01 09:42:00* Test Item Value Reference Range Interpretation Comme nts white blood count (test code = white blood count) 8.8 K/uL 4.0-11.5 red blood count (test code = red blood count) 4.27 M/uL 3.80-5.20 hemoglobin (test code = hemoglobin) 11.9 g/dL 10.5-15.7 hematocrit (test code = hematocrit) 36.5 % 34.0-50.0 MCV [Entitic volume] (test c ode = 10717-2) 85.5 fL 86-100 L mean corpuscular hemoglobin [...] neutrophils/100 leukocytes in Blood (test code = 69085-4) 56.8 % 44.4-80.1 Immature granulocytes [#/vol ume] in Blood (test code = 68218-6) 0.0 K/uL 0.0-0.03 H lymphocyte% (test code = lymphocyte%) 33.1 % 10.0-50.0 mono % (test code = mono %) 6.6 % 3.6-12.0 eos % (test code = eos %) 2.3 % 0.0-5.4 Basophils/100 leukocytes in Unspecified specimen (test code = 13029-0) 0.7 % 0.1-1.2 Band form neutrophils [#/vol ume] in Blood (test code = 45588-6) 5.00 K/uL 1.56-6.13 Lymphocytes [#/volume] in Unspecified specimen by Automated count (test code = 37747-4) 2.9 K/uL 1.18-3.74 mono # (test code = mono #) 0.58 K/uL 0.24-0.86 eos # (test code = eos #) 0.20 K/uL 0.04-0.36 basophil # (test code = baso dany #) 0.06 K/uL 0.01-0.08 NRBC% (test code = NRBC%) 0 /100 WBC 0-0.2 NRBC# (test code = NRBC#) 0 K/uL [facility]Different[facility], method unspecified - [id number] 09:42:00NeutrophilsBandLymphocyteAtypical LymphMonocyteEosinophilBasophilMetamyelocyteMyelocytePromyelocyteBlastsNucleated Red Blood CellAbs Neutrophil Count (Man)Abs Lymph Count (Man)Abs Monocyte Count (Man)Abs Eosinophil Count (Man)Abs Basophil Count (Man)Platelet EstimatePlatelet MorphologyAnisocytosisMacrocytosisStomatocyteToxic GranulationToxic VacuolationSmudge CellsGiant PlateletsSickle CellsDifferential comment-PMaOchsner Medical CenterHemoglobin A1c [Mass/volume] in [id number] 09:42:00* Test Item Value Reference Range Interpretation Comme nts Hemoglobin A1c [Mass/volume] in Blood (test code = 74565-0) 6.4 % 4.0-6.0 H [facility] CenterComprehensive metabolic 1999 panel - Serum or Plasma 2020-04-01 09:42:00* [...] code = 6768-6) 180 U/L 35-105 H [facility] CenterLipid 1995 panel - Serum or [id number] 09:42:00* Test Item Value Reference Range Interpretation [...] (test code = cholesterol risk ratio) 5.162 [facility] CenterReagin Ab [Presence] in Serum by [id number] 00:00:00* Test Item Value Reference Range Interpretation Comme [facility] Reagin Ab [Presence] in Seru m by RPR (test code = 81223-3) non reactive non reactive [facility] LakeHIV 1+2 Ab+HIV1 p24 Ag [Presence] in Serum or Plasma by [id number] 00:00:00* Test Item Value Reference Range Interpretation Comme [facility] HIV 1+2 Ab+HIV1 p24 Ag [Presence] in Serum or Plasma by Immunoassay (test code = 36810-0) non reactive non reactive [facility] LakeHepatitis B virus surface Ag [Presence] in Serum or Plasma by [id number] 00:00:00* Test Item Value Reference Range Interpretation Comme [facility] Hepatitis B virus surface Ag [Presence] in Serum or Plasma by Immunoassay (test code = 5196-1) negative [facility] [id number] 05:33:00* Test Item Value Reference Range Interpretation Comme [facility] Surgical pathology study (test code = 37373-8) see separate pathology report. [facility] W Auto Differential panel - [id number] 11:30:00 * Test Item Value Reference Range Interpretation Comme [facility] white blood count (test code = white blood count) 9.7 K/uL 4.0-11.5 red blood count (test code = red blood count) 4.85 M/uL 3.80-5.20 hemoglobin (test code = hemoglobin) 14.0 g/dL 10.5-15.7 hematocrit (test code = hematocrit) 41.0 % 34.0-50.0 MCV [Entitic volume] (test c ode = 12636-9) 84.5 fL 86-100 L mean corpuscular hemoglobin [...] neutrophils/100 leukocytes in Blood (test code = 49993-4) 65.5 % 44.4-80.1 Immature granulocytes [#/vol ume] in Blood (test code = 56029-2) 0.1 K/uL 0.0-0.03 H lymphocyte% (test code = lymphocyte%) 25.6 % 10.0-50.0 mono % (test code = mono %) 5.8 % 3.6-12.0 eos % (test code = eos %) 2.2 % 0.0-5.4 Basophils/100 leukocytes in Unspecified specimen (test code = 01052-4) 0.4 % 0.1-1.2 Band form neutrophils [#/vol ume] in Blood (test code = 70690-6) 6.37 K/uL 1.56-6.13 H Lymphocytes [#/volume] in Unspecified specimen by Automated count (test code = 04885-9) 2.5 K/uL 1.18-3.74 mono # (test code = mono #) 0.56 K/uL 0.24-0.86 eos # (test code = eos #) 0.21 K/uL 0.04-0.36 basophil # (test code = baso dany #) 0.04 K/uL 0.01-0.08 NRBC% (test code = NRBC%) 0 /100 WBC 0-0.2 NRBC# (test code = NRBC#) 0 K/uL [facility] CenterDifferential panel, method unspecified - [id number] 11:30:00NeutrophilsBandLymphocyteAtypical LymphMonocyteEosinophilMetamyelocytePlatelet EstimatePlatelet MorphologyToxic VacuolationUniversity [facility] Medical CenterHemoglobin A1c [Mass/volume] in Blood 2019-09-22 11:30:00* Test Item Value Reference Range Interpretation Comme nts Hemoglobin A1c [Mass/volume] in Blood (test code = 59744-5) 9.0 % 4.0-6.0 H [facility] CenterChoriogonadotropin ( test) [Presence] in Serum or [id number] 11:30:00* Test Item Value Reference Range Interpretation Comme nts Choriogonadotropin.beta subu nit ( test) [Presence] in Serum or Plasma (test code = 2110-5) negative neg [facility] CenterComprehensive metabolic 2000 panel - Serum [...] code = 6768-6) 168 U/L 35-105 H [facility] CenterPrealbumin [Mass/volume] in Serum or [id number] 11:30:00* Test Item Value Reference Range Interpretation Comme nts pre-albumin (test code = pre-albumin) 23.0 mg/dL 20-40 [facility] W Auto Differential panel - [id number] 06:11:00 * Test Item Value Reference Range Interpretation Comme nts white blood count (test code = white blood count) 10.6 K/uL 4.0-11.5 red blood count (test code = red blood count) 5.00 M/uL 3.80-5.20 hemoglobin (test code = hemoglobin) 14.5 g/dL 10.5-15.7 hematocrit (test code = hematocrit) 42.1 % 34.0-50.0 MCV [Entitic volume] (test c ode = 63916-9) 84.2 fL 86-100 L mean corpuscular hemoglobin [...] neutrophils/100 leukocytes in Blood (test code = 25225-7) 56.6 % 44.4-80.1 Immature granulocytes [#/vol ume] in Blood (test code = 06233-8) 0.1 K/uL 0.0-0.03 H lymphocyte% (test code = lymphocyte%) 33.3 % 10.0-50.0 mono % (test code = mono %) 6.5 % 3.6-12.0 eos % (test code = eos %) 2.5 % 0.0-5.4 Basophils/100 leukocytes in Unspecified specimen (test code = 25937-3) 0.4 % 0.1-1.2 Band form neutrophils [#/vol ume] in Blood (test code = 46742-2) 6.02 K/uL 1.56-6.13 Lymphocytes [#/volume] in Unspecified specimen by Automated count (test code = 28548-6) 3.5 K/uL 1.18-3.74 mono # (test code = mono #) 0.69 K/uL 0.24-0.86 eos # (test code = eos #) 0.26 K/uL 0.04-0.36 basophil # (test code = baso dany #) 0.04 K/uL 0.01-0.08 NRBC% (test code = NRBC%) 0 /100 WBC 0-0.2 NRBC# (test code = NRBC#) 0 K/uL [facility] CenterDifferential panel, method unspecified - [id number] 06:11:00NeutrophilsBandLymphocyteAtypical LymphMonocyteEosinophilBasophilNucleated Red Blood CellPlatelet EstimatePlatelet MorphologyHypochromasiaPoikilocytosisAnisocytosisMacrocytosisHowell-jolly BodiesToxic GranulationHypersegmented PolysToxic VacuolationDifferential comment-PMaOchsner Medical CenterPT/[id number] 06:11:00* Test Item Value Reference Range Interpretation Comme nts prothrombin time (test code = prothrombin time) 10.3 seconds 10.3-12.3 INR in Blood by Coagulation assay (test code = 34657-0) 0.95 [facility] Centerpartial thromboplastin [id number] 06:11:00* Test Item Value Reference Range Interpretation Comme nts INR in Blood by Coagulation assay (test code = 70285-7) 28.6 seconds 22.5-37.0 [facility] CenterComprehensive metabolic 2000 panel - Serum [...] code = 6768-6) 156 U/L 35-105 H [facility] CenterNatriuretic peptide.B prohormone N-Terminal [Mass/volume] in Serum or [id number] 06:11:00* Test Item Value Reference Range Interpretation Comme nts N-term pro natriuretic pepti de (test code = N-term pro natriuretic peptide) 15 pg/mL 0-125 [facility] CenterCreatine kinase [Enzymatic activity/volume] in Serum or [id number] 06:11:00* Test Item Value Reference Range Interpretation Comme nts creatine kinase (test code = creatine kinase) 71 U/L 20-180 [facility] CenterTroponin I.cardiac [Mass/volume] in [id number] 06:11:00* Test Item Value Reference Range Interpretation Comme nts cardiac troponin I (test cod e = cardiac troponin I) <0.30 0.0-0.5 [facility] CenterCreatine kinase.MB [Mass/volume] in Serum or Plasma 2019-09-11 06:11:00* Test Item Value Reference Range Interpretation Comme nts Creatine kinase.MB [Mass/vol ume] in Serum or Plasma by Immunoassay (test code = 31600-8) <1.0 0.0-3.6 [facility] Notes Date/Time Note Provider Source 2024-06-27 21:24:40 Patient called from [employer]. No answer at this time. Haily Li RN [facility] 2024-06-27 19:07:39 Patient given UA cup and encouraged to provide sample [facility] 2024-06-27 19:00:42 CC: back pain, patient suspects kidney infection; constipation; frequent urination; N/Vx2 Denies burning with urination PMH: HTN, diabetes T [facility]
[2024-07-19 12:13] LABS: Influenza A Ag Negative; Influenza B Ag Negative; SARS-CoV-2 Antigen Rapid Res Negative (Negative)
--- NOTE | 2024-07-19 12:23 | ER ---
Nurse's Notes [facility] Name: Anisha Navarro Age: 34 yrs Sex: Female : 1990 Arrival Date: 07/19/2024 Time: 10:53 Bed 12 Private MD: Diagnosis: Acute upper respiratory infection, unspecified Presentation: 07/19 11:01 Chief complaint: Patient states: throat pain X 1 week , today her ears are hurting, iw also has had cough, chills, sweating. Coronavirus screen: Client presents with at least one sign or symptom that may indicate coronavirus-19. Ebola Screen: No symptoms or risks identified at this time. Initial Sepsis Screen: Does the patient meet any 2 criteria? No. Patient's initial sepsis screen is negative. Does the patient have a suspected source of infection? No. Patient's initial sepsis screen is negative. Risk Assessment: Do you want to hurt yourself or someone else? Patient reports no desire to harm self or others. Onset of symptoms was July 12, 2024. 11:01 Method Of Arrival: Ambulatory iw 11:01 Acuity: NIKKI 4 iw Historical: - Allergies: 11:00 Bactrim; iw 11:00 Tessalon Perles; iw 11:00 tramadol; iw - PMHx: 11:00 diabetes mellitus; Hypertensive disorder; iw - PSHx: 11:00 carpal tunnel; Cholecystectomy; iw Screenin:05 [facility] ED Fall Risk Assessment (Adult) History of falling in the last 3 months, ss including since admission No falls in past 3 months (0 pts) Confusion or Disorientation No (0 pts) Intoxicated or Sedated No (0 pts) Impaired Gait No (0 pts) Mobility Assist Device Used No (0 pt) Altered Elimination No (0 pt) Score/Fall Risk Level 0 - 2 = Low Risk Oriented to surroundings, Maintained a safe environment. Abuse screen: Denies threats or abuse. Denies injuries from another. Nutritional screening: No deficits noted. Tuberculosis screening: Never had TB. Assessment: 11:04 General: Appears in no apparent distress. Behavior is calm, cooperative. Pain: iw Complains of pain in throat Pain currently is 7 out of 10 on a pain scale. Neuro: Level of Consciousness is awake, alert, obeys commands, Oriented to person, place, time, situation, Moves all extremities. Full function. Cardiovascular: Patient's skin is warm and dry. Respiratory: Respiratory effort is even, unlabored, Respiratory pattern is regular, symmetrical. EENT: Reports pain in throat. Derm: Skin is intact, is healthy with good turgor. Musculoskeletal: Range of motion: intact in all extremities. Vital Signs: 11:01 BP 154 / 92; Pulse 74; Resp 19; Temp 98.6(O); Pulse Ox 100% ; Weight 93.89 kg; Height 5 iw ft. 2 in. ; 11:01 Body Mass Index 37.86 (93.89 kg, 157.48 cm) iw ED Course: 10:56 Patient arrived in ED. cj3 10:58 Angelica Manning FNP-C is [facility]. 11:00 Zaid Lee MD is Attending Physician. kb 11:02 Triage completed. iw 11:04 Taylor Watts, RN is Primary Nurse. iw 11:04 Arm band placed on. iw 11:05 Patient has correct armband on for positive identification. Bed in low position. ss 11:05 Provided Education on: swabs. iw 11:05 No provider procedures requiring assistance completed. Patient did not have IV access iw during this emergency room visit. Administered Medications: 12:42 Drug: Dexamethasone IM 10 mg IM once Route: IM; Site: left deltoid; iw 12:46 Follow up: Response: No adverse reaction; Medication Administered at Departure ss Medication: 11:05 VIS not applicable for this client. iw Outcome: 12:22 Discharge ordered by MD. kb 12:45 Discharged to home ambulatory, ss 12:45 Condition: good 12:45 Discharge instructions given to patient, Instructed on discharge instructions, follow up and referral plans. Demonstrated understanding of instructions, follow-up care, 12:46 Patient left the ED. ss Signatures: Angelica Manning FNP-C FNP-Taylor Telles, RN BERNIE Makenzie Reid RN RN Rhonda Parks RN RN Mireille Arcos cj3
--- NOTE | 2024-07-19 12:23 | EDPHYS ---
Physician Documentation [facility] Name: Anisha Navarro Age: 34 yrs Sex: Female : 1990 Arrival Date: 07/19/2024 Time: 10:53 Bed 12 Private MD: ED Physician Zaid Lee HPI: 07/19 11:18 This 34 yrs old Female presents to ER via Ambulatory with complaints of Flu kb Symptoms, Ear Pain. 11:18 Pt is a 34 year old female who presents for sore throat and cough that started 1.5 kb weeks ago. States she has since developed chills and bilateral ear pain as well. Denies fever. Historical: - Allergies: 11:00 Bactrim; iw 11:00 Tessalon Perles; iw 11:00 tramadol; iw - PMHx: 11:00 diabetes mellitus; Hypertensive disorder; iw - PSHx: 11:00 carpal tunnel; Cholecystectomy; iw ROS: 11:17 Constitutional: As per HPI kb Exam: 11:17 Constitutional: This is a well developed, well nourished patient who is awake, alert, kb and in no acute distress. Head/Face: Normocephalic, atraumatic. ENT: Moist Mucous membranes Cardiovascular: Regular rate Respiratory: Respirations even and unlabored. No increased work of breathing. Talking in full sentences Abdomen/GI: Soft, non-tender. No distention Skin: Warm, dry with normal turgor. Normal color. MS/ Extremity: Pulses equal, no cyanosis. Neurovascular intact. Full, normal range of motion. Neuro: Awake and alert, GCS 15, oriented to person, place, time, and situation. Vital Signs: 11:01 BP 154 / 92; Pulse 74; Resp 19; Temp 98.6(O); Pulse Ox 100% ; Weight 93.89 kg; Height 5 iw ft. 2 in. ; 11:01 Body Mass Index 37.86 (93.89 kg, 157.48 cm) iw MDM: 10:59 Medical Screening Exam initiated kb 11:18 Data reviewed: vital signs, nurses notes. kb 12:21 Differential diagnosis: strep, flu, covid, uri. I considered the following discharge kb prescriptions or medication management in the emergency department I discussed and recommended Over The Counter medications, Antibiotics: At this time antibiotics are not recommended. Counseling: I had a detailed discussion with the patient and/or guardian regarding the historical points, exam findings, and any diagnostic results supporting the discharge/admit diagnosis, lab results, the need for outpatient follow up, a family practitioner, to return to the emergency department if symptoms worsen or persist or if there are any questions or concerns that arise at home. 07/19 11:03 Order name: COVID-19 Ag + Flu A+B Ag; Complete Time: 12:14 kb 07/19 11:03 Order name: Group A Streptococcus Rapid; Complete Time: 11:34 kb 07/19 11:37 Order name: Throat Culture EDMS Administered Medications: 12:42 Drug: Dexamethasone IM 10 mg IM once Route: IM; Site: left deltoid; 12:46 Follow up: Response: No adverse reaction; Medication Administered at Departure ss Disposition Summary: 07/19/24 12:22 Discharge Ordered Notes: Location: Home kb Condition: Stable kb Diagnosis - Acute upper respiratory infection, unspecified kb Followup: kb - With: Emergency Department - When: As needed - Reason: Worsening of condition Followup: kb - With: Private Physician - When: 2 - 3 days - Reason: Recheck today's complaints, Continuance of care, Re-evaluation by your physician Discharge Instructions: - Discharge Summary Sheet kb - Upper Respiratory Infection, Adult, [id number]-[id number] kb Forms: - Medication Reconciliation Form kb - Antibiotic Education kb - Prescription Opioid Use kb - Patient Portal Instructions kb - Leadership Thank You Letter kb - Work release form ss Addendum: 07/21/2024 09:01 Co-signature as Attending Physician, Zaid Lee MD I reviewed the patient's care r n provided by the Advanced Practice Provider and agree with the diagnosis and treatment plan. Signatures: Dispatcher [employer] Angelica Graham, AMPOULE SEALER-C AMPOULE SEALER-Taylor Telles RN RN iw Nieto, Roman, MD MD rn Blanchard, Shelby RN
[2024-07-19] MEDS ORDERED: dexAMETHasone 10 MG/ML VIAL ONE (12:33)
[2024-07-21 17:04] VITALS: BP 154/92; TEMP 98.6; O2SAT 100
== END 2024-07-19 12:46 | disposition home or self-care (01) ==
LOC: ER 10:53
DX: J06.9 Acute upper respiratory infection, unspecified (principal); H92.03 Otalgia, bilateral; Z11.52 Encounter for screening for COVID-19
CPT/HCPCS: 36415; 87070; 87428; 96372; 99284; J1100

== ENCOUNTER 2024-11-11 15:12 | Emergency (ER) | payer SELFPAY ==
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
--- NOTE | 2024-11-11 15:35 | ER ---
Nurse's Notes [facility] Name: Anisha Navarro Age: 34 yrs Sex: Female : 1990 Arrival Date: 11/11/2024 Time: 15:12 Bed 13 Private MD: Diagnosis: Nasal pain, sinus pain Presentation: 11/11 15:19 Chief complaint: Patient states: SHE HAS A NASAL FRACTURE SINCE SEPTEMBER AND IS HAVING RT dd2 SIDED FACIAL PAIN. Coronavirus screen: At this time, the client does not indicate any symptoms associated with coronavirus-19. Ebola Screen: No symptoms or risks identified at this time. Initial Sepsis Screen: Does the patient meet any 2 criteria? No. Patient's initial sepsis screen is negative. Does the patient have a suspected source of infection? No. Patient's initial sepsis screen is negative. Risk Assessment: Do you want to hurt yourself or someone else? Patient reports no desire to harm self or others. Onset of symptoms is unknown. 15:19 Method Of Arrival: Ambulatory dd2 15:19 Acuity: NIKKI 3 dd2 Triage Assessment: 15:21 General: Appears in no apparent distress. uncomfortable, Behavior is cooperative, dd2 appropriate for age, agitated. Pain: Complains of pain in face. EENT: Reports pain in right cheek, right ear, nose, mouth, right roman catholic and right jaw. Historical: - Allergies: 15:21 Bactrim; dd2 15:21 Liquid Benadryl; dd2 15:21 Tessalon Perles; dd2 15:21 tramadol; dd2 - PMHx: 15:21 diabetes mellitus; GERD (Cholecystectomy); Hypertensive disorder; dd2 - PSHx: 15:21 carpal tunnel; Cholecystectomy; dd2 - Immunization history:: Adult Immunizations unknown. - Infectious Disease History:: Denies. - Social history:: Smoking status: Patient denies any tobacco usage or history of. Screenin:42 [facility] ED Fall Risk Assessment (Adult) History of falling in the last 3 months, jb4 including since admission No falls in past 3 months (0 pts) Confusion or Disorientation No (0 pts) Intoxicated or Sedated No (0 pts) Impaired Gait No (0 pts) Mobility Assist Device Used No (0 pt) Altered Elimination No (0 pt) Score/Fall Risk Level 0 - 2 = Low Risk Oriented to surroundings, Maintained a safe environment. Abuse screen: Denies threats or abuse. Nutritional screening: No deficits noted. Tuberculosis screening: No symptoms or risk factors identified. Assessment: 15:42 General: Appears in no apparent distress. uncomfortable, Behavior is calm, cooperative, jb4 appropriate for age. Pain: Complains of pain in right side of head Pain does not radiate. Pain currently is 10 out of 10 on a pain scale. Neuro: Level of Consciousness is awake, alert, obeys commands, Oriented to person, place, time, situation. Cardiovascular: Patient's skin is warm and dry. Respiratory: Airway is patent Respiratory effort is even, unlabored, Respiratory pattern is regular, symmetrical. Derm: Skin is intact, Skin is pink, warm \T\ dry. Musculoskeletal: Circulation, motion, and sensation intact. Range of motion: intact in all extremities. Vital Signs: 15:19 BP 134 / 102; Pulse 80; Resp 16; Temp 98.2; Pulse Ox 100% ; Weight 87.54 kg; Height 5 dd2 ft. 2 in. ; Pain 10/10; 15:19 Body Mass Index 35.30 (87.54 kg, 157.48 cm) dd2 15:19 Pain Scale: Adult dd2 ED Course: 15:17 Patient arrived in ED. cj3 15:18 Farzaneh Palomo MD is Attending Physician. sp3 15:21 Triage completed. dd2 15:21 Arm band placed on right wrist. dd2 15:34 Emily Bowens MD is Referral Physician. sp3 15:42 Patient has correct armband on for positive identification. Bed in low position. Call jb4 light in reach. Side rails up X 1. Provided Education on: discharge instructions.. 15:42 No provider procedures requiring assistance completed. Patient did not have IV access jb4 during this emergency room visit. Administered Medications: No medications were administered Medication: 15:42 VIS not applicable for this client. jb4 Outcome: 15:35 Discharge ordered by . sp3 15:42 Discharged to home ambulatory, jb4 15:42 Condition: stable 15:42 Discharge instructions given to patient, Instructed on discharge instructions, follow up and referral plans. no drinking with medication, medication usage, Demonstrated understanding of instructions, follow-up care, medications, Prescriptions given X 1, 15:44 Patient left the ED. jb4 Signatures: Jewel Wesley RN RN jb4 Farzaneh Palomo MD MD sp3 ESTEPHANIE BEAL RN RN dd2 Mierille Arcos cj3
--- NOTE | 2024-11-11 15:35 | EDPHYS ---
Physician Documentation [facility] Name: Anisha Navarro Age: 34 yrs Sex: Female : 1990 Arrival Date: 11/11/2024 Time: 15:12 Bed 13 Private MD: ED Physician Farzaneh Palomo HPI: 11/11 15:32 This 34 yrs old Female presents to ER via Ambulatory with complaints of Face sp3 Pain-RT SIDE. 15:32 34-year-old female with history of diabetes, hypertension with nasal fracture in September sp3 not having chronic pain into her nose and right side of her face. Patient is having hard time getting into ENT. She is on narcotics. She is here for help and getting a referral and further pain control. She denies any bleeding, neurological symptoms or complaints, malocclusion, difficulty chewing, difficulty swallowing, airway compromise, neck pain, chest pain, shortness of breath or any other signs or symptoms on ROS at this time.. Historical: - Allergies: 15:21 Bactrim; dd2 15:21 Liquid Benadryl; dd2 15:21 Tessalon Perles; dd2 15:21 tramadol; dd2 - PMHx: 15:21 diabetes mellitus; GERD (Cholecystectomy); Hypertensive disorder; dd2 - PSHx: 15:21 carpal tunnel; Cholecystectomy; dd2 - Immunization history:: Adult Immunizations unknown. - Infectious Disease History:: Denies. - Social history:: Smoking status: Patient denies any tobacco usage or history of. ROS: 15:33 Constitutional: Negative for fever, chills, and weight loss, Eyes: Negative for injury, sp3 pain, redness, and discharge, Neck: Negative for injury, pain, and swelling, Cardiovascular: Negative for chest pain, palpitations, and edema, Respiratory: Negative for shortness of breath, cough, wheezing, and pleuritic chest pain, Abdomen/GI: Negative for abdominal pain, nausea, vomiting, diarrhea, and constipation, Back: Negative for injury and pain, MS/Extremity: Negative for injury and deformity, Skin: Negative for injury, rash, and discoloration, Neuro: Negative for headache, weakness, numbness, tingling, and seizure, Psych: Negative for depression, anxiety, suicide ideation, homicidal ideation, and hallucinations, Allergy/Immunology: Negative for hives, rash, and allergies, Endocrine: Negative for neck swelling, polydipsia, polyuria, polyphagia, and marked weight changes, 15:33 All other systems are negative, Exam: 15:33 Constitutional: This is a well developed, well nourished patient who is awake, alert, sp3 and in no acute distress. Head/Face: Normocephalic, atraumatic. Eyes: Pupils equal round and reactive to light, extra-ocular motions intact. Lids and lashes normal. Conjunctiva and sclera are non-icteric and not injected. Cornea within normal limits. Periorbital areas with no swelling, redness, or edema. Neck: Trachea midline, no thyromegaly or masses palpated, and no cervical lymphadenopathy. Supple, full range of motion without nuchal rigidity, or vertebral point tenderness. No Meningismus. Chest/axilla: Normal chest wall appearance and motion. Nontender with no deformity. No lesions are appreciated. Cardiovascular: Regular rate and rhythm with a normal S1 and S2. No gallops, murmurs, or rubs. Normal PMI, no JVD. No pulse deficits. Respiratory: Lungs have equal breath sounds bilaterally, clear to auscultation and percussion. No rales, rhonchi or wheezes noted. No increased work of breathing, no retractions or nasal flaring. Abdomen/GI: Soft, non-tender, with normal bowel sounds. No distension or tympany. No guarding or rebound. No evidence of tenderness throughout. Back: No spinal tenderness. No costovertebral tenderness. Full range of motion. Skin: Warm, dry with normal turgor. Normal color with no rashes, no lesions, and no evidence of cellulitis. MS/ Extremity: Pulses equal, no cyanosis. Neurovascular intact. Full, normal range of motion. Neuro: Awake and alert, GCS 15, oriented to person, place, time, and situation. Cranial nerves II-XII grossly intact. Motor strength 5/5 in all extremities. Sensory grossly intact. Cerebellar exam normal. Normal gait. Psych: Awake, alert, with orientation to person, place and time. Behavior, mood, and affect are within normal limits. 15:33 ENT: No septal hematoma, bleeding, nasal deformity or other process seen.. Vital Signs: 15:19 BP 134 / 102; Pulse 80; Resp 16; Temp 98.2; Pulse Ox 100% ; Weight 87.54 kg; Height 5 dd2 ft. 2 in. ; Pain 10/10; 15:19 Body Mass Index 35.30 (87.54 kg, 157.48 cm) dd2 15:19 Pain Scale: Adult dd2 MDM: 15:19 Medical Screening Exam initiated sp3 15:33 Data reviewed: vital signs, nurses notes, old medical records. ED course: 34-year-old sp3 female with acute on chronic nasal pain secondary to injury that occurred back in September. I have urged her to follow-up with ENT. Will refer to Dr. Bowens next-door. Diclofenac Rx for pain control until she is seen. No further intervention indicated in the emergency department.. Administered Medications: No medications were administered Disposition Summary: 11/11/24 15:35 Discharge Ordered Notes: Location: Home sp3 Condition: Stable sp3 Diagnosis - Nasal pain, sinus pain sp3 Followup: sp3 - With: Emily Bowens MD - When: Upon discharge from the Emergency Department - Reason: Continuance of care Discharge Instructions: - Discharge Summary Sheet sp3 - Sinus Headache sp3 Forms: - Work release form jb4 - Medication Reconciliation Form sp3 - Antibiotic Education sp3 - Prescription Opioid Use sp3 - Patient Portal Instructions sp3 - Leadership Thank You Letter sp3 Prescriptions: - Diclofenac Sodium 75 mg Oral Tablet Sustained Release - take 1 tablet ORAL route 2 times per day; 30 tablet; Refills: 0, Product sp3 Selection Permitted Signatures: Farzaneh Palomo MD MD sp3 ESTEPHANIE BEAL RN RN dd2
[2024-11-11 19:06] VITALS: BP 134/102; TEMP 98.2; O2SAT 100
== END 2024-11-11 15:44 | disposition home or self-care (01) ==
LOC: ER 15:12
DX: J34.89 Other specified disorders of nose and nasal sinuses (principal)
CPT/HCPCS: 99283

== ENCOUNTER 2025-01-13 18:58 | Emergency (ER) | payer SELFPAY ==
--- OUTSIDE RECORDS SUMMARY | 2025-01-13 19:05 | XMS REPORT | Continuity of Care Document ---
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 2016-04-28 16:46:00 2016-04-28 18:23:00 Emergency ER UGMARYELLEN, CLEMENT [facility] [id number] [facility] 2016-01-22 00:38:00 2016-01-22 03:02:00 Emergency ER CRISTIAN, CLEMENT [facility] [id number] [facility] 2015-12-06 23:09:00 2015-12-07 00:36:00 Emergency ER GUILLENALEXIA [facility] [id number] [facility] 2015-11-11 20:01:00 2015-11-11 22:02:00 Emergency ER CRISTIAN CLEMENT [facility] [id number] [facility] 2015-09-11 22:03:00 2015-09-11 23:29:00 Emergency ER ALEXIA GUILLEN [facility] [id number] [facility] 2015-08-21 22:14:00 2015-08-22 02:45:00 Emergency ER OLIVIA PABLO [facility] [id number] [facility] 2015-05-03 10:57:00 2015-05-03 11:40:00 Emergency ER NOEL FLORES [facility] [id number] [facility] 2015-03-20 00:02:00 2015-03-20 03:22:00 Emergency ER SANTOS KUMARIA [facility] [id number] [facility] 2014-09-06 00:08:00 2014-09-06 03:36:00 Emergency ER ALEXIA GUILLEN [facility] [id number] [facility] 2014-04-14 23:52:00 2014-04-15 03:27:00 Emergency ER CRISTIAN CLEMENT [facility] [id number] [facility] 2014-03-11 16:42:00 2014-03-11 20:43:00 Emergency ER CRISTIAN CLEMENT [facility] [id number] [facility] 2014-03-08 19:08:00 2014-03-08 20:20:00 Emergency ER GEOFF ARCEIDINIDA [facility] [id number] [facility] 2014-01-02 13:30:00 2014-01-02 16:54:00 Emergency ER GEOFF ARCEIDIKE [facility] [id number] [facility] 2013-04-12 18:30:00 2013-04-12 21:31:00 Emergency ER TOÑO FOSTER [facility] [id number] [facility] 2007-12-19 06:58:00 2007-12-19 09:50:00 Emergency ER NITA TORO [facility] [id number] [facility] Results Test Description Test Time Test Comments Results Result Comments Source CT Trauma Abdomen Pelvis w Contrast 07:03:24 Ordering physician: WILY ZHANG Indication: Blunt abdominal trauma COMPARISON: None TECHNIQUE: Axial images of the abdomen and pelvis are performed followingadministration of intravenous contrast material. Images were reformatted inthe coronal and sagittal plane. CT scan was performed according to ALARA(as low as reasonably achievable) policy. FINDINGS: The lung bases are clear. The patient is status postcholecystectomy. The liver, spleen, adrenal glands and pancreas are withinnormal limits. The kidneys are normal in appearance bilaterally withouthydronephrosis. No abdominal aortic aneurysm or dissection is appreciated. There is no free fluid in the pelvis. There is a dominant follicle in theright ovary, measuring 15 mm (series 2, image 126). There is no bowelobstruction, widespread diverticulosis or acute diverticulitis. Theappendix is identified and within normal limits. ?Bone windows through theabdomen and pelvis demonstrate no osseous destructive lesion. [facility] Ethanol - For all patients >16 years old 06:52:11 ALCOHOL<10mg/dL01/11/2025 1:52 [facility] Enpactxd68-565 Toxic>100 Depression of OIL SPOT WASHER>400 [facility] 06:50:15* Test Item Value Reference Range Interpretation Comme nts LIPASE (test code = 0984185572) 101 U/L 0-220 Lab Interpretation (test cod e = 24707-1) Normal [facility] Confirmation (Lab Only)2025-01-11 06:29:00* Test Item Value Reference Range Interpretation Comme nts ABO & RH (test code = 20) O Positive [facility]landProthrombin Time / [id number] 06:26:51* Test Item Value Reference Range Interpretation Comme nts PROTIME PATIENT (test code = 5964-2) 11.9 10.1-12.6 INR (test code = 6301-6) 1 <=4.5 Normal INR <1.1; Warfarin Therapeutic range 2.0 to 3.0 or 2.5 to 3.5, depending upon the indications. Lab Interpretation (test code = 58854-0) Normal [facility]landaPTT2025-10-19 06:26:51* Test Item Value Reference Range Interpretation Comme [facility] APTT Patient (test code = 3173-2) 28 26-36 DARIEL (test code = DARIEL) The [facility] patient population mean normal value for aPTT is 30 seconds. Lab Interpretation (test code = 57007-4) Normal [facility]CBC Without [id number] 06:14:13* Test Item Value Reference Range Interpretation Comme [facility] WBC (test code = 6690-2) 20.21 4.30-11.10 H RBC (test code = 789-8) 4.41 3.93-5.25 HGB (test code = 718-7) 13.2 g/dL 11.6-15.0 HCT (test code = 4544-3) 38.3 % 35.7-45.2 MCH (test code = 785-6) 29.9 pg 25.9-32.8 MCV (test code = 787-2) 86.8 fL 80.6-95.5 MCHC (test code = 786-4) 34.5 g/dL 31.6-35.1 PLT (test code = 777-3) 366 166-358 H MPV (test code = 54827-6) 10.1 fL 9.5-12.9 RDW-CV (test code = 788-0) 11.9 % 12.0-15.5 L RDW-SD (test code = 80819-2) 37.6 fL 39.0-49.9 L NRBC x10^3 (test code = 2662900498) See_Comment [Automated messa ge] The system which generated this result transmitted reference range: 10*3/?L. The reference range was not used to interpret this result as normal/abnormal. NRBC/100 WBC (test code = 0028251577) 0 0.0-10.0 IPF % (test code = 6489947381) Lab Interpretation (test code = 73584-7) Abnormal [facility]landType and Screen - The Type and Screen expires at midnight on the 3rd day after it was drawn. A current Type and Screen is required when RBCs are requested. For all other blood products, a Type and Scr een performed during the current hospitalizati...2025-01-11 06:00:00* Test Item Value Reference Range Interpretation Comme nts ABO & RH (test code = 20) O POSITIVE IAT (test code = 1185) Negative [facility]landPOCT Ggnc6135-15-32 05:53:00* Test Item Value Reference Range Interpretation Comme nts POCT PREG (test code = 1605) Negative On board controls acceptable with C Line (test code = 3574) Yes POCT PREG LOT # (test code = 3575) 152840 POCT PREG TEST DATE ( test code = 3576) 2026-05-02 Lab Interpretation (test cod e = 79989-6) Normal [facility]landD-ifyxy8967-12-33 21:23:00* Test Item Value Reference Range Interpretation Comme nts D-Dimer (test code = 330239644) 358 [facility] CtrBilirubin rdqnk8503-00-69 21:22:00* Test Item Value Reference Range Interpretation Comme nts Total Bilirubin (test code = ZMX4325) 0.2 [facility] CtrSerum or plasma urea nitrogen measurement (mass/volume)2024-08-27 21:22:00* Test Item Value Reference Range Interpretation Comme nts Blood Urea Nitrogen (test co de = 3094-0) 12 [facility] UhnRFE0749-68-56 21:22:00* Test Item Value Reference Range Interpretation Comme nts Aspartate Amino Transf (AST/ SGOT) (test code = CQW7847) 16 [facility] CtrCreatinine dddjo8633-19-23 21:22:00* Test Item Value Reference Range Interpretation Comme nts Creatinine (test code = 395323539) 0.85 [facility] CtrEstimated glomerular filtration rate (GFR) qyrnwdyhidigw6159-31-09 21:22:00* Test Item Value Reference Range Interpretation Comme nts Glomerular Filtration Rate C alc (test code = 198644298) > 60.00 [facility] CtrBUN/creatinine ichuf8213-44-72 21:22:00* Test Item Value Reference Range Interpretation Comme nts BUN/Creatinine Ratio (test c ode = 74285708) 14.1 [facility] CtrBody fluid potassium shmhbmdegnw2328-56-45 21:22:00* Test Item Value Reference Range Interpretation Comme nts Potassium Level (test code = 2821-7) 3.8 [facility] FefWU41175-89-33 21:22:00* Test Item Value Reference Range Interpretation Comme nts Carbon Dioxide Level (test c ode = 23720284) 22 [facility] CtrAnion gap iycyjtrktkq6543-89-80 21:22:00* Test Item Value Reference Range Interpretation Comme nts Anion Gap (test code = 96117257) 16.8 [facility] CtrCalcium zccji3639-34-98 21:22:00* Test Item Value Reference Range Interpretation Comme nts Calcium Level (test code = 67970226) 9.4 [facility] TxhHylsiscxr3259-77-08 21:22:00* Test Item Value Reference Range Interpretation Comme nts Magnesium Level (test code = 34707982) 2.0 [facility] CtrGlobulin afg1271-98-59 21:22:00* Test Item Value Reference Range Interpretation Comme nts Globulin (test code = 384401490) 3.8 [facility] CtrALT (SGPT) ser/oslw0139-92-41 21:22:00* Test Item Value Reference Range Interpretation Comme nts Alanine Aminotransferase (AL T/SGPT) (test code = 1742-6) 36 [facility] CtrALP ser/nzjx1480-80-80 21:22:00* Test Item Value Reference Range Interpretation Comme nts Total Alkaline Phosphatase ( test code = 6768-6) 154 [facility] CtrUrine lmldkzi2838-25-14 21:08:00* Test Item Value Reference Range Interpretation Comme nts Urine Culture (test code = 630-4) SPECIMEN HAS BEEN RECEIVED IN LAB AND IS IN PROGRESS. [facility] CtrRBC count ur qiog5392-79-14 21:07:00* Test Item Value Reference Range Interpretation Comme nts Urine RBC (test code = 798-9) 6-10 [facility] CtrUrine examination for white blood cells (WBC) 2024-08-27 21:07:00* Test Item Value Reference Range Interpretation Comme nts Urine WBC (test code = 811280292) 11-20 [facility] CtrAutomated epithelial cells count in urine sediment (number/area)2024-08-27 21:07:00* Test Item Value Reference Range Interpretation Comme nts Urine Epithelial Cells (test code = 04680-8) 6-10 [facility] CtrBacteria detection in urine sediment by light oiygwlnqeg9104-17-27 21:07:00* Test Item Value Reference Range Interpretation Comme nts Urine Bacteria (test code = 91974-5) Few [facility] CtrUrine casts detection by automated method 2024-08-27 21:07:00* Test Item Value Reference Range Interpretation Comme nts Urine Casts (test code = 53742-3) 0-2 [facility] CtrRBC jpavh8355-75-83 20:57:00* Test Item Value Reference Range Interpretation Comme nts Red Blood Count (test code = 10058510) 4.43 [facility] BshNbmngalkly6425-48-31 20:57:00* Test Item Value Reference Range Interpretation Comme nts Hematocrit (test code = 64399973) 39.2 [facility] CtrMCV (mean corpuscular volume) determination 2024-08-27 20:57:00* Test Item Value Reference Range Interpretation Comme nts Mean Corpuscular Volume (win t code = 88123-8) 88.5 [facility] CtrMean corpuscular hemoglobin (MCH) determination 2024-08-27 20:57:00* Test Item Value Reference Range Interpretation Comme nts Mean Corpuscular Hemoglobin (test code = 77361106) 30.0 [facility] CtrMean corpuscular hemoglobin concentration (MCHC) giamxewpnrwow8410-44-44 20:57:00* Test Item Value Reference Range Interpretation Comme [facility] Mean Corpuscular Hemoglobin Concent (test code = 01882072) 33.9 [facility] CtrErythrocyte distribution width coefficient of fbpkzxokf8860-98-71 20:57:00* Test Item Value Reference Range Interpretation Comme [facility] Red Cell Distribution Width (test code = 08876231) 11.9 [facility] CtrPlatelet jxqmu2010-40-04 20:57:00* Test Item Value Reference Range Interpretation Comme [facility] Platelet Count (test code = 80685443) 336 [facility] CtrMean platelet zvnawq3318-27-04 20:57:00* Test Item Value Reference Range Interpretation Comme [facility] Mean Platelet Volume (test c ode = 92607967) 10.0 [facility] CtrNeutrophils seg % bjx2587-57-44 20:57:00* Test Item Value Reference Range Interpretation Comme [facility] Neutrophils (%) (Auto) (test code = 60701-0) 61.8 [facility] CtrAbsolute immature granulocyte iiirk8832-35-25 20:57:00* Test Item Value Reference Range Interpretation Comme [facility] Absolute Immature Granulocyt e (auto (test code = 80091-9) 0.06 [facility] CtrBasophil % wzpiiu3241-53-23 20:57:00* Test Item Value Reference Range Interpretation Comme [facility] Basophils (%) (Auto) (test c ode = 33101-6) 0.6 [facility] CtrBlood band neutrophils count (number/volume) 2024-08-27 20:57:00* Test Item Value Reference Range Interpretation Comme [facility] Neutrophils # (Auto) (test c ode = 92008-6) 5.77 [facility] CtrAbsolute lymphocyte ewsml3036-47-20 20:57:00* Test Item Value Reference Range Interpretation Comme nts Lymphocytes # (Auto) (test c ode = 42057-1) 2.70 [facility] CtrAbsolute basophil gcepx5199-64-26 20:57:00* Test Item Value Reference Range Interpretation Comme nts Basophils # (Auto) (test cod e = 19810524) 0.06 [facility] CtrAbsolute NRBC lvhyu1241-50-86 20:57:00* Test Item Value Reference Range Interpretation Comme nts Nucleated Red Blood Cells # (test code = 359436013) 0 [facility] CtrAbsolute eosinophil mocoh9475-42-10 20:57:00* Test Item Value Reference Range Interpretation Comme nts Eosinophils # (Auto) (test c ode = ATX8741) 0.15 [facility] CtrHCG ur RK4848-52-63 20:55:00* Test Item Value Reference Range Interpretation Comme nts Urine HCG, Qualitative (test code = 2106-3) NEGATIVE [facility] CtrColor of Urine by Emcq8544-55-83 20:53:00* Test Item Value Reference Range Interpretation Comme nts Urine Color (test code = 95259-8) Yellow [facility] CtrAppearance of Essrw2513-93-54 20:53:00* Test Item Value Reference Range Interpretation Comme nts Urine Appearance (test code = 5767-9) Cloudy [facility] CtrUrine glucose whgcwtcbv2049-37-09 20:53:00* Test Item Value Reference Range Interpretation Comme nts Urine Glucose (UA) (test cod e = 2349-9) Negative [facility] CtrBilirubin pp2086-21-66 20:53:00* Test Item Value Reference Range Interpretation Comme nts Urine Bilirubin (test code = 661755027) Negative [facility] CtrKetones qt5142-18-23 20:53:00* Test Item Value Reference Range Interpretation Comme nts Urine Ketones (test code = 26382984) Negative [facility] CtrSpecific gravity of Urine by Automated test strip 2024-08-27 20:53:00* Test Item Value Reference Range Interpretation Comme nts Urine Specific [place] (test code = 93635-9) 1.020 [facility] CtrUrine blood xffaasvne7580-69-12 20:53:00* Test Item Value Reference Range Interpretation Comme nts Urine Blood (test code = 593407-2) Negative [facility] CtrpH mg0541-54-52 20:53:00* Test Item Value Reference Range Interpretation Comme nts Urine pH (test code = 2756-5) 5.500 [facility] CtrProtein kb2373-59-77 20:53:00* Test Item Value Reference Range Interpretation Comme nts Urine Protein (test code = 33676291) Negative [facility] CtrUrobilinogen, urine, hd8491-68-31 20:53:00* Test Item Value Reference Range Interpretation Comme [facility] Urine Urobilinogen (test cod e = 233008097) 1.0 [facility] CtrUrine nitrate jxkauxmkh1063-03-17 20:53:00* Test Item Value Reference Range Interpretation Comme [facility] Urine Nitrate (test code = 29453-8) Negative [facility] ester[facility] pjrmuxnag9808-12-42 20:53:00* Test Item Value Reference Range Interpretation Comme [facility] Urine Leukocyte Esterase (te st code = 592579-6) 1+ [facility] Ctrurinalysis, yjhouxzc2231-79-54 13:36:00* Test Item Value Reference Range Interpretation Comme [facility] Leukocytes (test code = Leukocytes) - Nitrite (test code = Nitrite) - Urobilinogen (test code = Urobilinogen) - Protein (test code = Protein) - pH (test code = pH) 6.0 Blood (test code = Blood) - Specific [place] (test code = Specific [place]) 1.025 Ketone (test code = Ketone) - Bilirubin (test code = Bilirubin) - Glucose (test code = Glucose) - Appearance (test code = Appearance) turbid Color (test code = Color) yellow [facility] [Presence] in Serum by RPR 2022-04-07 00:00:00* Test Item Value Reference Range Interpretation Comme [facility] Reagin Ab [Presence] in Seru m by RPR (test code = 96709-7) non reactive non reactive [facility] HospitalHIV 1 and 2 tests - Meaningful Use [id number] 00:00:00* Test Item Value Reference Range Interpretation Comme [facility] HIV 1+2 Ab+HIV1 p24 Ag [Presence] in Serum or Plasma by Immunoassay (test code = 89830-6) non reactive non reactive [facility] HospitalHepatitis B virus surface Ag [Presence] in Serum or Plasma by [id number] 00:00:00* Test Item Value Reference Range Interpretation Comme nts Hepatitis B virus surface Ag [Presence] in Serum or Plasma by Immunoassay (test code = 5196-1) negative negative [facility] Hospital[facility] Auto Differential panel - Blood 2020-04-01 09:42:00* Test Item Value Reference Range Interpretation Comme nts white blood count (test code = white blood count) 8.8 K/uL 4.0-11.5 red blood count (test code = red blood count) 4.27 M/uL 3.80-5.20 hemoglobin (test code = hemoglobin) 11.9 g/dL 10.5-15.7 hematocrit (test code = hematocrit) 36.5 % 34.0-50.0 MCV [Entitic volume] (test c ode = 17035-0) 85.5 fL 86-100 L mean corpuscular hemoglobin [...] neutrophils/100 leukocytes in Blood (test code = 66138-4) 56.8 % 44.4-80.1 Immature granulocytes [#/vol ume] in Blood (test code = 23145-9) 0.0 K/uL 0.0-0.03 H lymphocyte% (test code = lymphocyte%) 33.1 % 10.0-50.0 mono % (test code = mono %) 6.6 % 3.6-12.0 eos % (test code = eos %) 2.3 % 0.0-5.4 Basophils/100 leukocytes in Unspecified specimen (test code = 17343-3) 0.7 % 0.1-1.2 Band form neutrophils [#/vol ume] in Blood (test code = 83956-6) 5.00 K/uL 1.56-6.13 Lymphocytes [#/volume] in Unspecified specimen by Automated count (test code = 41038-0) 2.9 K/uL 1.18-3.74 mono # (test code = mono #) 0.58 K/uL 0.24-0.86 eos # (test code = eos #) 0.20 K/uL 0.04-0.36 basophil # (test code = baso dany #) 0.06 K/uL 0.01-0.08 NRBC% (test code = NRBC%) 0 /100 WBC 0-0.2 NRBC# (test code = NRBC#) 0 K/uL [facility] HospitalDifferential panel, method unspecified - [id number] 09:42:00NeutrophilsBandLymphocyteAtypical LymphMonocyteEosinophilBasophilMetamyelocyteMyelocytePromyelocyteBlastsNucleated Red Blood CellAbs Neutrophil Count (Man)Abs Lymph Count (Man)Abs Monocyte Count (Man)Abs Eosinophil Count (Man)Abs Basophil Count (Man)Platelet EstimatePlatelet MorphologyAnisocytosisMacrocytosisStomatocyteToxic GranulationToxic VacuolationSmudge CellsGiant PlateletsSickle CellsDifferential comment-PMaGeorge Regional HospitalHemoglobin A1c [Mass/volume] in [id number] 09:42:00* Test Item Value Reference Range Interpretation Comme nts Hemoglobin A1c [Mass/volume] in Blood (test code = 33874-4) 6.4 % 4.0-6.0 H [facility] HospitalComprehensive metabolic 2000 panel - Serum or [...] code = 6768-6) 180 U/L 35-105 H [facility] HospitalLipid 1996 panel - Serum or [id number] 09:42:00* Test Item Value Reference Range Interpretation [...] (test code = cholesterol risk ratio) 5.162 [facility] HospitalReagin [facility] [Presence] in Serum by [id number] 00:00:00* Test Item Value Reference Range Interpretation Comme nts Reagin Ab [Presence] in Seru m by RPR (test code = 30648-2) non reactive non reactive [facility] HospitalHIV 1+2 Ab+HIV1 p24 Ag [Presence] in Serum or Plasma by [id number] 00:00:00* Test Item Value Reference Range Interpretation Comme nts HIV 1+2 Ab+HIV1 p24 Ag [Presence] in Serum or Plasma by Immunoassay (test code = 45368-3) non reactive non reactive [facility] HospitalHepatitis B virus surface Ag [Presence] in Serum or Plasma by [id number] 00:00:00* Test Item Value Reference Range Interpretation Comme nts Hepatitis B virus surface Ag [Presence] in Serum or Plasma by Immunoassay (test code = 5196-1) negative negative [facility] [id number] 05:33:00* Test Item Value Reference Range Interpretation Comme [facility] Surgical pathology study (test code = 07828-8) see separate pathology report. [facility] W Auto Differential panel - [id number] 11:30:00 * Test Item Value Reference Range Interpretation Comme [facility] white blood count (test code = white blood count) 9.7 K/uL 4.0-11.5 red blood count (test code = red blood count) 4.85 M/uL 3.80-5.20 hemoglobin (test code = hemoglobin) 14.0 g/dL 10.5-15.7 hematocrit (test code = hematocrit) 41.0 % 34.0-50.0 MCV [Entitic volume] (test c ode = 99482-7) 84.5 fL 86-100 L mean corpuscular hemoglobin [...] neutrophils/100 leukocytes in Blood (test code = 44975-0) 65.5 % 44.4-80.1 Immature granulocytes [#/vol ume] in Blood (test code = 88260-6) 0.1 K/uL 0.0-0.03 H lymphocyte% (test code = lymphocyte%) 25.6 % 10.0-50.0 mono % (test code = mono %) 5.8 % 3.6-12.0 eos % (test code = eos %) 2.2 % 0.0-5.4 Basophils/100 leukocytes in Unspecified specimen (test code = 76972-3) 0.4 % 0.1-1.2 Band form neutrophils [#/vol ume] in Blood (test code = 00082-8) 6.37 K/uL 1.56-6.13 H Lymphocytes [#/volume] in Unspecified specimen by Automated count (test code = 02661-2) 2.5 K/uL 1.18-3.74 mono # (test code = mono #) 0.56 K/uL 0.24-0.86 eos # (test code = eos #) 0.21 K/uL 0.04-0.36 basophil # (test code = baso dany #) 0.04 K/uL 0.01-0.08 NRBC% (test code = NRBC%) 0 /100 WBC 0-0.2 NRBC# (test code = NRBC#) 0 K/uL [facility] HospitalDifferential panel, method unspecified - [id number] 11:30:00NeutrophilsBandLymphocyteAtypical LymphMonocyteEosinophilMetamyelocytePlatelet EstimatePlatelet MorphologyToxic VacuolationBeacham Memorial HospitalHemoglobin A1c [Mass/volume] in Blood 2019-09-22 11:30:00* Test Item Value Reference Range Interpretation Comme nts Hemoglobin A1c [Mass/volume] in Blood (test code = 76589-8) 9.0 % 4.0-6.0 H [facility] HospitalChoriogonadotropin ( test) [Presence] in Serum or [id number] 11:30:00* Test Item Value Reference Range Interpretation Comme nts Choriogonadotropin.beta subu nit ( test) [Presence] in Serum or Plasma (test code = 2110-5) negative neg [facility] HospitalComprehensive metabolic 2000 panel - Serum or [...] code = 6768-6) 168 U/L 35-105 H [facility] HospitalPrealbumin [Mass/volume] in Serum or [id number] 11:30:00* Test Item Value Reference Range Interpretation Comme nts pre-albumin (test code = pre-albumin) 23.0 mg/dL 20-40 [facility] W Auto Differential panel - [id number] 06:11:00 * Test Item Value Reference Range Interpretation Comme nts white blood count (test code = white blood count) 10.6 K/uL 4.0-11.5 red blood count (test code = red blood count) 5.00 M/uL 3.80-5.20 hemoglobin (test code = hemoglobin) 14.5 g/dL 10.5-15.7 hematocrit (test code = hematocrit) 42.1 % 34.0-50.0 MCV [Entitic volume] (test c ode = 89228-1) 84.2 fL 86-100 L mean corpuscular hemoglobin [...] neutrophils/100 leukocytes in Blood (test code = 11865-9) 56.6 % 44.4-80.1 Immature granulocytes [#/vol ume] in Blood (test code = 50273-8) 0.1 K/uL 0.0-0.03 H lymphocyte% (test code = lymphocyte%) 33.3 % 10.0-50.0 mono % (test code = mono %) 6.5 % 3.6-12.0 eos % (test code = eos %) 2.5 % 0.0-5.4 Basophils/100 leukocytes in Unspecified specimen (test code = 03905-1) 0.4 % 0.1-1.2 Band form neutrophils [#/vol ume] in Blood (test code = 79406-2) 6.02 K/uL 1.56-6.13 Lymphocytes [#/volume] in Unspecified specimen by Automated count (test code = 11387-6) 3.5 K/uL 1.18-3.74 mono # (test code = mono #) 0.69 K/uL 0.24-0.86 eos # (test code = eos #) 0.26 K/uL 0.04-0.36 basophil # (test code = baso dany #) 0.04 K/uL 0.01-0.08 NRBC% (test code = NRBC%) 0 /100 WBC 0-0.2 NRBC# (test code = NRBC#) 0 K/uL [facility] HospitalDifferential panel, method unspecified - [id number] 06:11:00NeutrophilsBandLymphocyteAtypical LymphMonocyteEosinophilBasophilNucleated Red Blood CellPlatelet EstimatePlatelet MorphologyHypochromasiaPoikilocytosisAnisocytosisMacrocytosisHowell-jolly BodiesToxic GranulationHypersegmented PolysToxic VacuolationDifferential comment-PMaGeorge Regional HospitalPT/[id number] 06:11:00* Test Item Value Reference Range Interpretation Comme [facility] prothrombin time (test code = prothrombin time) 10.3 seconds 10.3-12.3 INR in Blood by Coagulation assay (test code = 58671-2) 0.95 [facility] Hospitalpartial thromboplastin [id number] 06:11:00* Test Item Value Reference Range Interpretation Comme [facility] INR in Blood by Coagulation assay (test code = 25228-1) 28.6 seconds 22.5-37.0 [facility] HospitalComprehensive metabolic 2000 panel - Serum or [...] code = 6768-6) 156 U/L 35-105 H [facility] GroupNatriuretic peptide.B prohormone N-Terminal [Mass/volume] in Serum or [id number] 06:11:00* Test Item Value Reference Range Interpretation Comme nts N-term pro natriuretic pepti de (test code = N-term pro natriuretic peptide) 15 pg/mL 0-125 [facility] HospitalCreatine kinase [Enzymatic activity/volume] in Serum or [id number] 06:11:00* Test Item Value Reference Range Interpretation Comme nts creatine kinase (test code = creatine kinase) 71 U/L 20-180 [facility] HospitalTroponin I.cardiac [Mass/volume] in [id number] 06:11:00* Test Item Value Reference Range Interpretation Comme nts cardiac troponin I (test cod e = cardiac troponin I) <0.30 0.0-0.5 [facility] HospitalCreatine kinase.MB [Mass/volume] in Serum or Plasma 2019-09-11 06:11:00* Test Item Value Reference Range Interpretation Comme nts Creatine kinase.MB [Mass/vol ume] in Serum or Plasma by Immunoassay (test code = 59964-9) <1.0 0.0-3.6 [facility] Notes <thead> Date/Time Note Provider Source 2025-01-11 02:27:01 Awake, alert oriented X4, respiratory even and unlabored,skin w/d color appropriate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 [facility]2025-04-04 21:24:40 Patient called from [employer]. No answer at this time. [id number]:07[facility]39 Patient given UA cup and encouraged to provide sample [facility] [id number] 19:00:42 CC: back pain, patient suspects kidney infection; constipation; frequent urination; N/Vx2 Denies burning with urination PMH: HTN, diabetes [facility] [employer]
[2025-01-13 19:44] LABS: Absolute Lymphocytes (CBC) 2.6 K/uL (0.7-4.9); Hematocrit 39.9 % (36.0-45.0); Hemoglobin 13.5 g/dL (12.0-15.0); MCH 29.0 pg (27.0-35.0); MCHC 33.7 g/dL (32.0-36.0); MCV 85.8 fL (80-100); MPV 8.0 fL (7.6-11.3); Nucleated RBC Absolute Count 0.0 (0-0); Nucleated Red Blood Cells % 0.0 % (0-0); RBC Red Blood Cell Count 4.65 M/uL (3.86-4.86); White Blood Count 11.00 thou/uL (4.3-10.9)
[2025-01-13 19:51] LABS: Urine Culture Reflex Order NOT NEEDED; Urine Microscopic Reflex YN ORDER UMIC
[2025-01-13] MEDS ORDERED: KETOROLAC 30 MG/ML INJ ONE (19:55)
[2025-01-13 20:11] LABS: ALT/SGPT 29 U/L (13-56); Albumin 3.9 g/dL (3.4-5.0); Albumin/Globulin Ratio 1.0 (1.1-1.8); Alkaline Phosphatase 111 U/L (45-117); Anion Gap 10.4 mEq/L (5.0-15.0); BUN Blood Urea Nitrogen 15 mg/dL (7-18); Globulin 4.1 g/dL (2.3-3.5); Glucose Level 166 mg/dL (74-106); Lipase 40 U/L (13-75); Potassium 3.4 mEq/L (3.5-5.1)
[2025-01-13 20:14] LABS: AST/SGOT < 10 U/L (15-37)
--- NOTE | 2025-01-13 21:33 | RAD REPORT ---
EXAMINATION: CT Abdomen Pelvis W Contrast CLINICAL INDICATION: Female, 34 years old. ABD PAIN TECHNIQUE: CT abdomen and pelvis was performed, after the administration of IV contrast, [facility]. Axial, sagittal and coronal reconstructions were obtained. One or more of the following dose reduction techniques were used: Automated exposure control, adjustment of the mA and k V according to patient size, and iterative reconstruction. Unless otherwise specified, incidental findings do not require dedicated imaging follow-up. COMPARISON: 06/02/2019 FINDINGS: LOWER CHEST: The visualized lung bases are clear. LIVER: Normal in size and contour. No focal lesion. BILIARY SYSTEM: No suspicious abnormalities. SPLEEN: Normal size. No focal lesion. PANCREAS: No mass, ductal dilation, or derick-pancreatic fluid. ADRENALS: Normal; no mass. KIDNEYS: Normal size and contour. No hydronephrosis. URINARY BLADDER: Decompressed limiting evaluation. GASTROINTESTINAL TRACT: No evidence of free air, significant intra-abdominal free fluid, bowel obstru ction or abscess. APPENDIX: Normal appendix. LYMPH NODES: No lymphadenopathy. MUSCULOSKELETAL: No acute or suspicious osseous abnormality. ADDITIONAL FINDINGS: No dominant ovarian or adnexal lesions. IMPRESSION: No acute or concerning abnormalities seen in the abdomen or pelvis.
--- NOTE | 2025-01-13 21:39 | EDPHYS ---
Physician Documentation [facility] Name: Anisha Navarro Age: 34 yrs Sex: Female : 1990 Arrival Date: 01/13/2025 Time: 18:58 Bed 17 Private MD: ED Physician Tawanda Walker HPI: 01/13 20:46 This 34 yrs old Female presents to ER via Ambulatory with complaints of kb Abdominal Pain, Back Pain. 20:46 Patient is a 34-year-old female who presents for right sided abdominal pain that kb started 4 days ago. States she was seen at [place] [facility] at the time of onset and diagnosed with a right ovarian cyst. States the pain now radiates to the back and she had some vaginal bleeding about 30 minutes prior to arrival that is resolved. Denies fever, nausea, vomiting, diarrhea.. Historical: - Allergies: 19:22 Bactrim; kd3 19:22 Liquid Benadryl; kd3 19:22 Tessalon Perles; kd3 19:22 tramadol; kd3 - PMHx: 19:22 diabetes mellitus; GERD (Cholecystectomy); Hypertensive disorder; kd3 - PSHx: 19:22 carpal tunnel; Cholecystectomy; kd3 - Immunization history:: Adult Immunizations up to date. - Infectious Disease History:: Denies. - Social history:: Smoking status: Patient denies any tobacco usage or history of. ROS: 20:46 Constitutional: As per HPI kb Exam: 20:46 Constitutional: This is a well developed, well nourished patient who is awake, alert, kb and in no acute distress. Head/Face: Normocephalic, atraumatic. ENT: Moist Mucous membranes Cardiovascular: Regular rate Respiratory: Respirations even and unlabored. No increased work of breathing. Talking in full sentences Skin: Warm, dry with normal turgor. Normal color. MS/ Extremity: Pulses equal, no cyanosis. Neurovascular intact. Full, normal range of motion. Neuro: Awake and alert, GCS 15, oriented to person, place, time, and situation. 20:46 Abdomen/GI: Inspection: abdomen appears normal, Bowel sounds: normal, Palpation: soft, in all quadrants, mild abdominal tenderness, in the right upper quadrant, 20:46 Back: CVA tenderness, that is moderate, is noted on the right, Vital Signs: 19:19 BP 132 / 105; Pulse 75; Resp 18; Temp 99.3(O); Pulse Ox 100% on R/A; Weight 86.18 kg; kd3 Height 5 ft. 2 in. ; 20:35 BP 136 / 85; Pulse 70; Resp 18; Pulse Ox 99% on R/A; nh2 21:35 BP 119 / 86; Pulse 70; Resp 18; Pulse Ox 99% on R/A; nh2 19:19 Body Mass Index 34.75 (86.18 kg, 157.48 cm) kd3 MDM: 19:01 Medical Screening Exam initiated kb 20:47 Data reviewed: vital signs, nurses notes. kb 21:39 Differential diagnosis: appendicitis, non-specific abd pain, Ureterolithiasis, urinary kb tract infection, ovarian cyst. Counseling: I had a detailed discussion with the patient and/or guardian regarding the historical points, exam findings, and any diagnostic results supporting the discharge/admit diagnosis, lab results, radiology results, the need for outpatient follow up, an OB/Gyne specialist, to return to the emergency department if symptoms worsen or persist or if there are any questions or concerns that arise at home. 01/13 19:14 Order name: CBC with Diff; Complete Time: 19:57 kb 01/13 19:14 Order name: CMP; Complete Time: 20:23 kb 01/13 19:14 Order name: Lipase; Complete Time: 20:23 kb 01/13 19:14 Order name: Test, Urine; Complete Time: 19:57 kb 01/13 19:14 Order name: UA Rfx Gurpreet Cult if indicated; Complete Time: 19:57 kb 01/13 19:50 Order name: CT Abd/Pelvis - IV Contrast Only; Complete Time: 21:36 kb 01/13 19:14 Order name: IV Saline Lock; Complete Time: 19:34 kb 01/13 19:14 Order name: Labs collected and sent; Complete Time: 19:34 kb Administered Medications: 20:00 Drug: Ketorolac IVP 15 mg IVP once; VO \T\ 0753 Route: IVP; Site: left antecubital; nh2 20:34 Follow up: Response: No adverse reaction; Pain is decreased nh2 Disposition: 23:04 I was immediately available on-site in the Emergency Department for consultation in the [facility] care of the patient. . Disposition Summary: 01/13/25 21:39 Discharge Ordered Notes: Location: Home kb Condition: Stable kb Diagnosis - Abdominal pain, Generalized kb Followup: kb - With: Emergency Department - When: As needed - Reason: Worsening of condition Followup: kb - With: Private Physician - When: 2 - 3 days - Reason: Recheck today's complaints, Continuance of care, Re-evaluation by your physician Discharge Instructions: - Discharge Summary Sheet kb - Abdominal Pain, Adult, Muhj-wx-Upln kb Forms: - Medication Reconciliation Form kb - Antibiotic Education kb - Prescription Opioid Use kb - Patient Portal Instructions kb - Leadership Thank You Letter kb Prescriptions: - Diclofenac Sodium 75 mg Oral tablet, delayed release (enteric coated) - take 1 tablet ORAL route 2 times per day As needed; 30 tablet; Refills: 0, kb Product Selection Permitted Signatures: Dispatcher [employer] EDAngelica Lopez, DAVID-C DAVID-Tawanda Morataya DO DO ms3 Cheryl Alvarez RN RN kd3 Christian Alvarez Jr, RN RN nh2 Corrections: (The following items were deleted from the chart) 19:14 19:14 CBC+H.LAB.BRZ ordered. EDMS EDMS 19:14 19:14 COMPREHENSIVE METABOLIC PANEL+C.LAB.BRZ ordered. EDMS EDMS 19:14 19:14 LIPASE+C.LAB.BRZ ordered. EDMS EDMS 19:14 19:14 Test, Urine+UC.LAB.BRZ ordered. EDMS EDMS 19:14 19:14 UA Rfx Gurpreet Cult if indicated+U.LAB.BRZ ordered. EDMS EDMS
--- NOTE | 2025-01-13 21:39 | ER ---
Nurse's Notes [facility] Name: Anisha Navarro Age: 34 yrs Sex: Female : 1990 Arrival Date: 01/13/2025 Time: 18:58 Bed 17 Private MD: Diagnosis: Abdominal pain, Generalized Presentation: 01/13 19:19 Chief complaint: Patient states: Last Sunday i was seen in [facility] for an [facility], kd3 on my cat scan they saw a right ovarian cyst. yesterday I started having right sided lower abdominal pain that radiated into my lower back. today around 2:30 i started having vaginal bleeding. Coronavirus screen: Vaccine status: Patient reports being unvaccinated. Ebola Screen: No symptoms or risks identified at this time. Initial Sepsis Screen: Does the patient meet any 2 criteria? No. Patient's initial sepsis screen is negative. Does the patient have a suspected source of infection? No. Patient's initial sepsis screen is negative. Risk Assessment: Do you want to hurt yourself or someone else? Patient reports no desire to harm self or others. Onset of symptoms was January 13, 2025. 19:19 Method Of Arrival: Ambulatory kd3 19:19 Acuity: NIKKI 3 kd3 Triage Assessment: 19:22 General: Appears uncomfortable, Behavior is calm, cooperative. Pain: Complains of pain kd3 in right low back and right lower quadrant. GI: Abdomen is non-distended. Historical: - Allergies: 19:22 Bactrim; kd3 19:22 Liquid Benadryl; kd3 19:22 Tessalon Perles; kd3 19:22 tramadol; kd3 - PMHx: 19:22 diabetes mellitus; GERD (Cholecystectomy); Hypertensive disorder; kd3 - PSHx: 19:22 carpal tunnel; Cholecystectomy; kd3 - Immunization history:: Adult Immunizations up to date. - Infectious Disease History:: Denies. - Social history:: Smoking status: Patient denies any tobacco usage or history of. Screenin:32 [facility] ED Fall Risk Assessment (Adult) History of falling in the last 3 months, kd3 including since admission No falls in past 3 months (0 pts) Confusion or Disorientation No (0 pts) Intoxicated or Sedated No (0 pts) Impaired Gait No (0 pts) Mobility Assist Device Used No (0 pt) Altered Elimination No (0 pt) Score/Fall Risk Level 0 - 2 = Low Risk Maintained a safe environment. Abuse screen: Denies threats or abuse. Denies injuries from another. Nutritional screening: No deficits noted. Tuberculosis screening: No symptoms or risk factors identified. Assessment: 19:33 General: Appears in no apparent distress. Behavior is calm, cooperative. Neuro: Level kd3 of Consciousness is awake, alert, obeys commands, Oriented to person, place, time, situation. Cardiovascular: Capillary refill < 3 seconds Patient's skin is warm and dry. Respiratory: Airway is patent Trachea midline Respiratory effort is even, unlabored, Respiratory pattern is regular, symmetrical. GI: Bowel sounds present X 4 quads. Abd is soft X 4 quads Abdomen is tender to palpation in right lower quadrant. 20:00 Reassessment: pt transferred to CT via wheelchair. nh2 20:25 Reassessment: Patient and/or family updated on plan of care and expected duration. Pain nh2 level reassessed. Patient is alert, oriented x 3, equal unlabored respirations, skin warm/dry/pink. pt back from CT, reconnected to monitor. denies needs and concerns, call light placed within reach. 21:25 Reassessment: Patient and/or family updated on plan of care and expected duration. Pain nh2 level reassessed. Patient is alert, oriented x 3, equal unlabored respirations, skin warm/dry/pink. Patient states feeling better. Vital Signs: 19:19 BP 132 / 105; Pulse 75; Resp 18; Temp 99.3(O); Pulse Ox 100% on R/A; Weight 86.18 kg; kd3 Height 5 ft. 2 in. ; 20:35 BP 136 / 85; Pulse 70; Resp 18; Pulse Ox 99% on R/A; nh2 21:35 BP 119 / 86; Pulse 70; Resp 18; Pulse Ox 99% on R/A; nh2 19:19 Body Mass Index 34.75 (86.18 kg, 157.48 cm) kd3 ED Course: 19:00 Patient arrived in ED. im 19:00 Angelica Manning FNP-C is [facility]. kb 19:00 Tawanda Walker DO is Attending Physician. kb 19:18 Cheryl Alvarez, BERNIE is Primary Nurse. kd3 19:22 Triage completed. kd3 19:22 Arm band placed on right wrist. kd3 19:32 No provider procedures requiring assistance completed. Inserted saline lock: 20 gauge kd3 in left antecubital area, using aseptic technique. Blood collected. Flushed with 10 mL NS. 19:33 Patient has correct armband on for positive identification. Provided Education on: kd3 urine sample . 19:34 CBC with Diff Sent. kd3 19:34 CMP Sent. kd3 19:34 Lipase Sent. kd3 19:34 Test, Urine Sent. kd3 19:34 UA Rfx Gurpreet Cult if indicated Sent. kd3 20:26 CT Abd/Pelvis - IV Contrast Only In Process Unspecified. EDMS 21:47 IV discontinued, intact, bleeding controlled, No redness/swelling at site. Pressure nh2 dressing applied. Administered Medications: 20:00 Drug: Ketorolac IVP 15 mg IVP once; VO \T\ 0753 Route: IVP; Site: left antecubital; nh2 20:34 Follow up: Response: No adverse reaction; Pain is decreased nh2 Medication: 19:33 VIS not applicable for this client. kd3 Outcome: 21:39 Discharge ordered by . kb 21:47 Discharged to home ambulatory, nh2 21:47 Condition: stable 21:47 Discharge instructions given to patient, Instructed on discharge instructions, follow up and referral plans. medication usage, Demonstrated understanding of instructions, follow-up care, medications, Prescriptions given X 1, 21:48 Patient left the ED. nh2 Signatures: Dispatcher [employer] EDMS Angelica Manning, HARLEY HERNANDEZ-Cheryl Mullen RN RN kd3 Mecca Junior Jr, Noel, RN RN nh2
[2025-01-14 00:27] VITALS: TEMP 99.3
[2025-01-14 00:29] VITALS: O2SAT 99
[2025-01-14 00:30] VITALS: BP 119/86
== END 2025-01-13 21:48 | disposition home or self-care (01) ==
LOC: ER 18:58
DX: R10.84 Generalized abdominal pain (principal)
CPT/HCPCS: 36415; 74177; 80053; 81001; 81025; 83690; 85025; 96374; 99284; J1885; Q9967